=== PATIENT | male | born 1955 | race Caucasian/White ===

== ENCOUNTER 2020-08-03 08:03 | Outpatient (REF) | payer OTHER, SELFPAY ==
[2020-08-03 08:51] LABS: MANUAL DIFF FLAG NO
[2020-08-03 08:57] LABS: Basophils Percent Auto 0.4 % (0-2); Eosinophils Absolute Auto 0.3 X10*3/uL (0.0-0.4); Eosinophils Percent Auto 5.7 % (0-4); Hematocrit 45.8 % (42-52); Hemoglobin 14.6 g/dl (14.0-18.0); Imm Gran Abs Auto 0.01 X10*3/uL (0.00-0.03); Imm Gran Pct Auto 0.2 % (0.0-0.4); Lymphocytes Absolute Auto 1.8 X10*3/uL (1.2-4.9); Lymphocytes Percent Auto 38.6 % (20-40); Mean Corpuscular HGB Conc 31.9 g/dl (31.0-36.0); Mean Corpuscular Hemoglobin 28.2 pg (27.0-33.0); Mean Corpuscular Volume 88.4 fL (80-98); Mean Platelet Volume 9.7 fL (9.4-12.4); Monocytes Absolute Auto 0.3 X10*3/uL (0.1-1.2); Monocytes Percent Auto 6.4 % (2-11); Neutrophils Absolute Auto 2.3 X10*3/uL (2.0-8.3); Neutrophils Percent Auto 48.7 % (45-73); Platelet Count 199 X10*3/uL (160-400); Red Blood Count 5.18 X10*6/uL (4.60-5.80); Red Cell Distribution Width 13.7 % (11.0-16.0); White Blood Count 4.7 X10*3/uL (4.8-10.8)
[2020-08-03 09:27] LABS: Alanine Aminotransferase 17 U/L (0-40); Albumin Level 4.4 g/dL (3.5-5.0); Alkaline Phosphatase 92 U/L (39-117); Anion Gap 15 (12-20); Aspartate Amino Transferase 17 U/L (5-37); Bilirubin Total 0.4 mg/dL (0.0-1.0); Blood Urea Nitrogen 19 mg/dL (9-16); Calcium 9.2 mg/dL (8.4-10.2); Carbon Dioxide 24 mmol/L (22-29); Chloride 105 mmol/L (96-108); Cholesterol 205 mg/dL; Estimated Glomerular Filt Rate > 60; Glucose Fasting 104 mg/dL (60-99); HDL Cholesterol 42 mg/dL; LDL Cholesterol Calculated 134 mg/dl; Potassium 4.6 mmol/l (3.3-5.1); Sodium 139 mmol/L (135-145); Total Protein 7.4 g/dL (6.5-8.0); Triglycerides 149 mg/dL
[2020-08-03 09:50] LABS: Vitamin D 25-OH Total 43.3 ng/mL (>30)
[2020-08-03 10:08] LABS: Estimated Average Glucose 120 mg/dL; Hemoglobin A1c % 5.8 %
[2020-08-03 10:22] LABS: Folate 13.9 ng/mL (> or = 4.0); Vitamin B12 655 pg/mL (200-900)
== END 2020-08-03 08:04 | disposition home or self-care (01) ==
LOC: HO.LAB 08:03
PROVIDERS: Visit Provider Internal Medicine
DX: E78.5 Hyperlipidemia, unspecified (principal); R73.01 Impaired fasting glucose; K21.9 Gastro-esophageal reflux disease without esophagitis; J30.9 Allergic rhinitis, unspecified; E53.8 Deficiency of other specified B group vitamins; E55.9 Vitamin D deficiency, unspecified; E66.3 Overweight
CPT/HCPCS: 36415; 80053; 80061; 82306; 82607; 82746; 83036; 84443; 85025

== ENCOUNTER 2020-11-12 07:48 | Outpatient (REF) | payer OTHER, SELFPAY ==
[2020-11-12 08:18] LABS: MANUAL DIFF FLAG NO
[2020-11-12 08:30] LABS: Basophils Percent Auto 0.5 % (0-2); Eosinophils Absolute Auto 0.2 X10*3/uL (0.0-0.4); Hematocrit 44.3 % (42-52); Imm Gran Abs Auto 0.01 X10*3/uL (0.00-0.03); Imm Gran Pct Auto 0.2 % (0.0-0.4); Lymphocytes Absolute Auto 1.7 X10*3/uL (1.2-4.9); Mean Corpuscular HGB Conc 31.6 g/dl (31.0-36.0); Mean Corpuscular Hemoglobin 28.2 pg (27.0-33.0); Mean Corpuscular Volume 89.1 fL (80-98); Mean Platelet Volume 9.9 fL (9.4-12.4); Monocytes Absolute Auto 0.3 X10*3/uL (0.1-1.2); Monocytes Percent Auto 7.1 % (2-11); Neutrophils Percent Auto 46.2 % (45-73); Platelet Count 182 X10*3/uL (160-400); Red Blood Count 4.97 X10*6/uL (4.60-5.80); Red Cell Distribution Width 13.7 % (11.0-16.0); White Blood Count 4.2 X10*3/uL (4.8-10.8)
[2020-11-12 08:51] LABS: Glucose Urine UA NEG (NEG); Leukocyte Esterase Urine NEG (NEG); Nitrite Urine NEG (NEG); PH 6.5 (5.0-8.0); Urine Blood NEG (NEG); Urine Ketones NEG (NEG); Urine Protein NEG (NEG-TRACE)
[2020-11-12 08:54] LABS: Appearance Urine CLEAR; Color Urine YELLOW
[2020-11-12 09:00] LABS: Alanine Aminotransferase 20 U/L (0-40); Albumin Level 4.4 g/dL (3.5-5.0); Alkaline Phosphatase 99 U/L (39-117); Anion Gap 10 (12-20); Aspartate Amino Transferase 22 U/L (5-37); Bilirubin Total 0.7 mg/dL (0.0-1.0); Blood Urea Nitrogen 21 mg/dL (9-16); Carbon Dioxide 27 mmol/L (22-29); Chloride 106 mmol/L (96-108); Cholesterol 183 mg/dL; Estimated Glomerular Filt Rate > 60; Glucose Fasting 111 mg/dL (60-99); HDL Cholesterol 49 mg/dL; LDL Cholesterol Calculated 118 mg/dl; Potassium 4.3 mmol/L (3.3-5.1); Sodium 139 mmol/L (135-145); Total Protein 7.3 g/dL (6.5-8.0); Triglycerides 82 mg/dL
[2020-11-12 09:24] LABS: TSH reflex Free T4 1.41 uIU/mL (0.32-4.0); Vitamin D 25-OH Total 42.8 ng/mL (>30)
[2020-11-14 05:11] LABS: Vitamin B12 307 pg/mL (200-900)
== END 2020-11-12 07:49 | disposition home or self-care (01) ==
LOC: HO.LAB 07:48
PROVIDERS: PCP Internal Medicine; Visit Provider Internal Medicine
DX: E78.00 Pure hypercholesterolemia, unspecified (principal); E53.8 Deficiency of other specified B group vitamins; K21.9 Gastro-esophageal reflux disease without esophagitis; R73.01 Impaired fasting glucose; E66.3 Overweight; E55.9 Vitamin D deficiency, unspecified
CPT/HCPCS: 36415; 80053; 80061; 81003; 82306; 82607; 82746; 84443; 85025

== ENCOUNTER 2020-11-30 09:26 | Outpatient (REF) | payer OTHER, SELFPAY ==
--- NOTE | ~2020-11-30 | XR_ITS ---
EXAMINATION: XR CERVICAL SPINE CLINICAL INFORMATION: Cervical disc disorder COMPARISON: 08/14/2016 TECHNIQUE: 3 views of the cervical spine were obtained. FINDINGS: There is no fracture or subluxation. Vertebral body height and alignment is maintained. Disc spaces are maintained with prominent multilevel endplate osteophytes seen throughout the cervical spine. Mild facet arthropathy. The atlantoaxial articulation is intact. The dens is intact. The prevertebral soft tissues are unremarkable. The lung apices are clear. XR/XR cervical spine 2V IMPRESSION: Moderate degenerative changes throughout the cervical spine. There is mild progression from prior.
== END 2020-11-30 09:27 | disposition home or self-care (01) ==
LOC: HO.XRAY 09:26
PROVIDERS: PCP Internal Medicine; Visit Provider Internal Medicine
DX: M50.90 Cervical disc disorder, unspecified, unspecified cervical region (principal)
CPT/HCPCS: 72040

== ENCOUNTER 2021-02-11 07:16 | Outpatient (REF) | payer OTHER, SELFPAY ==
[2021-02-11 07:53] LABS: MANUAL DIFF FLAG NO
[2021-02-11 07:58] LABS: Basophils Percent Auto 0.5 % (0-2); Eosinophils Absolute Auto 0.3 X10*3/uL (0.0-0.4); Eosinophils Percent Auto 6.1 % (0-4); Hematocrit 42.9 % (42-52); Hemoglobin 13.6 g/dl (14.0-18.0); Imm Gran Abs Auto 0.01 X10*3/uL (0.00-0.03); Imm Gran Pct Auto 0.2 % (0.0-0.4); Lymphocytes Absolute Auto 1.8 X10*3/uL (1.2-4.9); Mean Corpuscular HGB Conc 31.7 g/dl (31.0-36.0); Mean Corpuscular Hemoglobin 28.5 pg (27.0-33.0); Mean Corpuscular Volume 89.7 fL (80-98); Mean Platelet Volume 9.9 fL (9.4-12.4); Monocytes Absolute Auto 0.3 X10*3/uL (0.1-1.2); Monocytes Percent Auto 6.5 % (2-11); Neutrophils Percent Auto 45.7 % (45-73); Platelet Count 183 X10*3/uL (160-400); Red Blood Count 4.78 X10*6/uL (4.60-5.80); Red Cell Distribution Width 14.5 % (11.0-16.0); White Blood Count 4.4 X10*3/uL (4.8-10.8)
[2021-02-11 07:59] LABS: Glucose Urine UA NEG (NEG); Leukocyte Esterase Urine NEG (NEG); Nitrite Urine NEG (NEG); PH 6.5 (5.0-8.0); Specific Gravity - Urine 1.015 (1.005-1.025); Urine Blood NEG (NEG); Urine Ketones NEG (NEG); Urine Protein NEG (NEG-TRACE)
[2021-02-11 08:00] LABS: Appearance Urine CLEAR; Color Urine YELLOW
[2021-02-11 08:11] LABS: Estimated Average Glucose 108 mg/dL; Hemoglobin A1c % 5.4 %
[2021-02-11 08:23] LABS: Alanine Aminotransferase 15 U/L (0-40); Albumin Level 4.2 g/dL (3.5-5.0); Alkaline Phosphatase 105 U/L (39-117); Anion Gap 11 (12-20); Aspartate Amino Transferase 18 U/L (5-37); Bilirubin Total 0.4 mg/dL (0.0-1.0); Blood Urea Nitrogen 23 mg/dL (9-16); Calcium 8.9 mg/dL (8.4-10.2); Carbon Dioxide 24 mmol/L (22-29); Chloride 110 mmol/L (96-108); Cholesterol 165 mg/dL; Estimated Glomerular Filt Rate > 60; Glucose Fasting 111 mg/dL (60-99); HDL Cholesterol 54 mg/dL; LDL Cholesterol Calculated 100 mg/dl; Potassium 4.4 mmol/L (3.3-5.1); Sodium 141 mmol/L (135-145); Total Protein 6.9 g/dL (6.5-8.0); Triglycerides 58 mg/dL
[2021-02-11 08:47] LABS: Prostate Specific Antigen Scr 0.42 ng/mL (<0.05-4.0); TSH reflex Free T4 1.22 uIU/mL (0.32-4.0); Vitamin D 25-OH Total 43.7 ng/mL (>30)
[2021-02-13 08:37] LABS: Folate 14.3 ng/mL (> or = 4.0); Vitamin B12 642 pg/mL (200-900)
== END 2021-02-11 07:17 | disposition home or self-care (01) ==
LOC: HO.LAB 07:16
PROVIDERS: PCP Internal Medicine; Visit Provider Internal Medicine
DX: Z12.5 Encounter for screening for malignant neoplasm of prostate (principal); E53.8 Deficiency of other specified B group vitamins; E78.00 Pure hypercholesterolemia, unspecified; R35.0 Frequency of micturition; K21.9 Gastro-esophageal reflux disease without esophagitis; R73.01 Impaired fasting glucose; E55.9 Vitamin D deficiency, unspecified; E66.3 Overweight
CPT/HCPCS: 36415; 80053; 80061; 81003; 82306; 82607; 82746; 83036; 84153; 84443; 85025

== ENCOUNTER 2021-06-29 06:00 | Outpatient (REF) | payer OTHER, SELFPAY ==
[2021-06-29 06:07] LABS: MANUAL DIFF FLAG NO
[2021-06-29 06:15] LABS: Basophils Percent Auto 0.3 % (0-2); Eosinophils Absolute Auto 0.2 X10*3/uL (0.0-0.4); Eosinophils Percent Auto 5.5 % (0-4); Hematocrit 44.9 % (42.0-52.0); Hemoglobin 13.9 g/dl (14.0-18.0); Imm Gran Abs Auto 0.01 X10*3/uL (0.00-0.03); Imm Gran Pct Auto 0.3 % (0.0-0.4); Lymphocytes Absolute Auto 1.8 X10*3/uL (1.2-4.9); Mean Corpuscular Hemoglobin 28.4 pg (27.0-33.0); Mean Corpuscular Volume 91.6 fL (80.0-98.0); Monocytes Absolute Auto 0.3 X10*3/uL (0.1-1.2); Monocytes Percent Auto 8.5 % (2-11); Neutrophils Absolute Auto 1.66 x10*3/uL (2.0-8.3); Neutrophils Percent Auto 41.4 % (45-73); Platelet Count 166 X10*3/uL (160-400); Red Cell Distribution Width 13.7 % (11.0-16.0)
[2021-06-29 06:33] LABS: Alanine Aminotransferase 16 U/L (0-40); Albumin Level 4.3 g/dL (3.5-5.0); Alkaline Phosphatase 91 U/L (39-117); Anion Gap 11 (12-20); Aspartate Amino Transferase 22 U/L (5-37); Bilirubin Total 0.4 mg/dL (0.0-1.0); Blood Urea Nitrogen 16 mg/dL (9-16); Calcium 9.2 mg/dL (8.4-10.2); Carbon Dioxide 26 mmol/L (22-29); Chloride 109 mmol/L (96-108); Cholesterol 184 mg/dL; Estimated Glomerular Filt Rate > 60; Glucose Fasting 122 mg/dL (60-99); HDL Cholesterol 49 mg/dL; LDL Cholesterol Calculated 120 mg/dl; Potassium 5.4 mmol/L (3.3-5.1); Sodium 141 mmol/L (135-145); Total Protein 7.3 g/dL (6.5-8.0); Triglycerides 77 mg/dL
[2021-06-29 06:51] LABS: TSH reflex Free T4 1.98 uIU/mL (0.32-4.0)
== END 2021-06-29 06:01 | disposition home or self-care (01) ==
LOC: HO.LAB 06:00
PROVIDERS: PCP Internal Medicine; Visit Provider Internal Medicine
DX: Z00.00 Encounter for general adult medical examination without abnormal findings (principal); E78.00 Pure hypercholesterolemia, unspecified; R73.01 Impaired fasting glucose; K21.9 Gastro-esophageal reflux disease without esophagitis; E53.8 Deficiency of other specified B group vitamins
CPT/HCPCS: 36415; 80053; 80061; 84443; 85025

== ENCOUNTER 2021-10-28 07:02 | Outpatient (REF) | payer MEDICARE, SELFPAY ==
[2021-10-28 07:16] LABS: MANUAL DIFF FLAG NO
[2021-10-28 07:57] LABS: Basophils Percent Auto 0.2 % (0-2); Eosinophils Absolute Auto 0.2 X10*3/uL (0.0-0.4); Eosinophils Percent Auto 4.6 % (0-4); Hematocrit 45.9 % (42.0-52.0); Hemoglobin 14.4 g/dl (14.0-18.0); Imm Gran Abs Auto 0.01 X10*3/uL (0.00-0.03); Imm Gran Pct Auto 0.2 % (0.0-0.4); Lymphocytes Percent Auto 45.2 % (20-40); Mean Corpuscular HGB Conc 31.4 g/dl (31.0-36.0); Mean Corpuscular Hemoglobin 28.7 pg (27.0-33.0); Mean Corpuscular Volume 91.4 fL (80.0-98.0); Mean Platelet Volume 9.8 fL (9.4-12.4); Monocytes Absolute Auto 0.3 X10*3/uL (0.1-1.2); Monocytes Percent Auto 7.4 % (2-11); Neutrophils Absolute Auto 1.8 x10*3/uL (2.0-8.3); Neutrophils Percent Auto 42.4 % (45-73); Platelet Count 181 X10*3/uL (160-400); Red Blood Count 5.02 X10*6/uL (4.60-5.80); Red Cell Distribution Width 13.5 % (11.0-16.0); White Blood Count 4.3 X10*3/uL (4.8-10.8)
[2021-10-28 08:09] LABS: Estimated Average Glucose 114 mg/dL; Hemoglobin A1c % 5.6 %
[2021-10-28 08:18] LABS: Appearance Urine HAZY; Color Urine YELLOW; Glucose Urine UA NEG (NEG); Leukocyte Esterase Urine NEG (NEG); Nitrite Urine NEG (NEG); Specific Gravity - Urine 1.015 (1.005-1.025); Urine Blood NEG (NEG); Urine Ketones NEG (NEG); Urine Protein NEG (NEG-TRACE)
[2021-10-28 08:28] LABS: Alanine Aminotransferase 16 U/L (0-40); Albumin Level 4.3 g/dL (3.5-5.0); Alkaline Phosphatase 86 U/L (39-117); Anion Gap 12 (12-20); Aspartate Amino Transferase 20 U/L (5-37); Bilirubin Total 0.8 mg/dL (0.0-1.0); Blood Urea Nitrogen 20 mg/dL (9-16); Calcium 9.3 mg/dL (8.4-10.2); Carbon Dioxide 25 mmol/L (22-29); Chloride 107 mmol/L (96-108); Cholesterol 196 mg/dL; Estimated Glomerular Filt Rate > 60; Glucose Fasting 111 mg/dL (60-99); HDL Cholesterol 51 mg/dL; LDL Cholesterol Calculated 131 mg/dl; Potassium 4.4 mmol/L (3.3-5.1); Sodium 140 mmol/L (135-145); Total Protein 7.1 g/dL (6.5-8.0); Triglycerides 73 mg/dL
[2021-10-28 08:33] LABS: TSH reflex Free T4 1.81 uIU/mL (0.32-4.0); Vitamin D 25-OH Total 36.6 ng/mL (>30)
== END 2021-10-28 07:03 | disposition home or self-care (01) ==
LOC: HO.LAB 07:02
PROVIDERS: PCP Internal Medicine; Visit Provider Internal Medicine
DX: E78.00 Pure hypercholesterolemia, unspecified (principal); I10 Essential (primary) hypertension; E55.9 Vitamin D deficiency, unspecified; R73.01 Impaired fasting glucose
CPT/HCPCS: 36415; 80053; 80061; 81003; 82306; 83036; 84443; 85025

== ENCOUNTER 2022-02-27 07:49 | Outpatient (REF) | payer MEDICARE, SELFPAY ==
[2022-02-27 08:04] LABS: MANUAL DIFF FLAG NO
[2022-02-27 08:27] LABS: Basophils Percent Auto 0.2 % (0-2); Eosinophils Absolute Auto 0.3 X10*3/uL (0.0-0.4); Eosinophils Percent Auto 6.4 % (0-4); Hemoglobin 13.8 g/dl (14.0-18.0); Imm Gran Abs Auto 0.01 X10*3/uL (0.00-0.03); Imm Gran Pct Auto 0.2 % (0.0-0.4); Lymphocytes Percent Auto 44.5 % (20-40); Mean Corpuscular HGB Conc 32.1 g/dl (31.0-36.0); Mean Corpuscular Hemoglobin 29.1 pg (27.0-33.0); Mean Corpuscular Volume 90.5 fL (80.0-98.0); Mean Platelet Volume 9.8 fL (9.4-12.4); Monocytes Absolute Auto 0.3 X10*3/uL (0.1-1.2); Monocytes Percent Auto 6.6 % (2-11); Neutrophils Absolute Auto 1.8 x10*3/uL (2.0-8.3); Neutrophils Percent Auto 42.1 % (45-73); Platelet Count 172 X10*3/uL (160-400); Red Blood Count 4.75 X10*6/uL (4.60-5.80); Red Cell Distribution Width 14.2 % (11.0-16.0); White Blood Count 4.4 X10*3/uL (4.8-10.8)
[2022-02-27 08:28] LABS: Appearance Urine CLEAR; Color Urine YELLOW; Glucose Urine UA NEG (NEG); Leukocyte Esterase Urine NEG (NEG); Nitrite Urine NEG (NEG); UACC Culture Trigger NO; Urine Blood 2+ (NEG); Urine Ketones NEG (NEG); Urine Protein NEG (NEG-TRACE)
[2022-02-27 08:41] LABS: Mucus Urine 1+ /LPF; WBC Urine 0 /HPF (0-4)
[2022-02-27 08:42] LABS: Estimated Average Glucose 111 mg/dL; Hemoglobin A1c % 5.5 %
[2022-02-27 09:33] LABS: Alanine Aminotransferase 14 U/L (0-40); Albumin Level 4.3 g/dL (3.5-5.0); Alkaline Phosphatase 91 U/L (39-117); Anion Gap 11 (12-20); Aspartate Amino Transferase 19 U/L (5-37); Bilirubin Total 0.7 mg/dL (0.0-1.0); Blood Urea Nitrogen 17 mg/dL (9-16); Carbon Dioxide 26 mmol/L (22-29); Chloride 109 mmol/L (96-108); Cholesterol 192 mg/dL; Estimated Glomerular Filt Rate > 60; Glucose Fasting 116 mg/dL (60-99); HDL Cholesterol 52 mg/dL; LDL Cholesterol Calculated 117 mg/dl; Potassium 4.6 mmol/L (3.3-5.1); Sodium 141 mmol/L (135-145); Total Protein 7.1 g/dL (6.5-8.0); Triglycerides 118 mg/dL
[2022-02-27 09:55] LABS: TSH reflex Free T4 1.95 uIU/mL (0.32-4.0); Vitamin D 25-OH Total 40.7 ng/mL (>30)
== END 2022-02-27 07:50 | disposition home or self-care (01) ==
LOC: HO.LAB 07:49
PROVIDERS: PCP Internal Medicine; Visit Provider Internal Medicine
DX: I10 Essential (primary) hypertension (principal); E55.9 Vitamin D deficiency, unspecified; E78.00 Pure hypercholesterolemia, unspecified; R73.01 Impaired fasting glucose
CPT/HCPCS: 36415; 80053; 80061; 81001; 82306; 83036; 84443; 85025

== ENCOUNTER 2022-07-02 07:07 | Outpatient (REF) | payer MEDICARE, SELFPAY ==
[2022-07-02 07:16] LABS: MANUAL DIFF FLAG NO
[2022-07-02 07:36] LABS: Basophils Percent Auto 0.3 % (0-2); Eosinophils Absolute Auto 0.5 X10*3/uL (0.0-0.4); Eosinophils Percent Auto 7.8 % (0-4); Hematocrit 41.3 % (42.0-52.0); Hemoglobin 13.2 g/dl (14.0-18.0); Imm Gran Abs Auto 0.02 X10*3/uL (0.00-0.03); Imm Gran Pct Auto 0.3 % (0.0-0.4); Lymphocytes Percent Auto 34.1 % (20-40); Mean Corpuscular Hemoglobin 28.7 pg (27.0-33.0); Mean Corpuscular Volume 89.8 fL (80.0-98.0); Mean Platelet Volume 9.2 fL (9.4-12.4); Monocytes Absolute Auto 0.4 X10*3/uL (0.1-1.2); Monocytes Percent Auto 6.8 % (2-11); Neutrophils Percent Auto 50.7 % (45-73); Platelet Count 164 X10*3/uL (160-400); White Blood Count 5.9 X10*3/uL (4.8-10.8)
[2022-07-02 07:41] LABS: Estimated Average Glucose 108 mg/dL; Hemoglobin A1c % 5.4 %
[2022-07-02 07:56] LABS: Alanine Aminotransferase 19 U/L (0-40); Albumin Level 4.1 g/dL (3.5-5.0); Alkaline Phosphatase 76 U/L (39-117); Anion Gap 16 (12-20); Aspartate Amino Transferase 28 U/L (5-37); Bilirubin Total 0.5 mg/dL (0.0-1.0); Blood Urea Nitrogen 24 mg/dL (9-16); Calcium 8.8 mg/dL (8.4-10.2); Carbon Dioxide 22 mmol/L (22-29); Chloride 108 mmol/L (96-108); Cholesterol 163 mg/dL; Estimated Glomerular Filt Rate > 60; Glucose Fasting 115 mg/dL (60-99); HDL Cholesterol 49 mg/dL; LDL Cholesterol Calculated 99 mg/dl; Potassium 4.7 mmol/L (3.3-5.1); Sodium 141 mmol/L (135-145); Total Protein 6.8 g/dL (6.5-8.0); Triglycerides 76 mg/dL
[2022-07-02 08:11] LABS: Appearance Urine Clear; Color Urine Yellow; Glucose Urine UA Negative (Negative); Leukocyte Esterase Urine Negative (Negative); Nitrite Urine Negative (Negative); Specific Gravity - Urine 1.025 (1.005-1.025); Urine Blood Negative (Negative); Urine Ketones Negative (Negative); Urine Protein Negative (Neg-Trace)
[2022-07-02 08:17] LABS: TSH reflex Free T4 1.04 uIU/mL (0.32-4.0)
== END 2022-07-02 07:08 | disposition home or self-care (01) ==
LOC: HO.LAB 07:07
PROVIDERS: PCP Internal Medicine; Visit Provider Internal Medicine
DX: E78.00 Pure hypercholesterolemia, unspecified (principal); R73.01 Impaired fasting glucose; I10 Essential (primary) hypertension
CPT/HCPCS: 36415; 80053; 80061; 81003; 83036; 84443; 85025

== ENCOUNTER 2022-11-05 07:22 | Outpatient (REF) | payer MEDICARE, SELFPAY ==
[2022-11-05 07:34] LABS: MANUAL DIFF FLAG NO
[2022-11-05 08:14] LABS: Appearance Urine Clear; Color Urine Yellow; Glucose Urine UA Negative (Negative); Leukocyte Esterase Urine Negative (Negative); Nitrite Urine Negative (Negative); Urine Blood Negative (Negative); Urine Ketones Negative (Negative); Urine Protein Negative (Neg-Trace)
[2022-11-05 08:22] LABS: Estimated Average Glucose 111 mg/dL; Hemoglobin A1c % 5.5 %
[2022-11-05 08:24] LABS: Basophils Percent Auto 0.3 % (0-2); Eosinophils Absolute Auto 0.3 X10*3/uL (0.0-0.4); Eosinophils Percent Auto 5.4 % (0-4); Hematocrit 44.2 % (42.0-52.0); Hemoglobin 13.9 g/dl (14.0-18.0); Imm Gran Abs Auto 0.01 X10*3/uL (0.00-0.03); Imm Gran Pct Auto 0.2 % (0.0-0.4); Lymphocytes Absolute Auto 2.3 X10*3/uL (1.2-4.9); Lymphocytes Percent Auto 39.2 % (20-40); Mean Corpuscular HGB Conc 31.4 g/dl (31.0-36.0); Mean Corpuscular Volume 88.9 fL (80.0-98.0); Mean Platelet Volume 9.5 fL (9.4-12.4); Monocytes Absolute Auto 0.4 X10*3/uL (0.1-1.2); Monocytes Percent Auto 6.6 % (2-11); Neutrophils Absolute Auto 2.9 x10*3/uL (2.0-8.3); Neutrophils Percent Auto 48.3 % (45-73); Platelet Count 183 X10*3/uL (160-400); Red Blood Count 4.97 X10*6/uL (4.60-5.80); Red Cell Distribution Width 13.7 % (11.0-16.0)
[2022-11-05 08:52] LABS: Alanine Aminotransferase 14 U/L (0-40); Albumin Level 4.2 g/dL (3.5-5.0); Alkaline Phosphatase 78 U/L (39-117); Anion Gap 14 (12-20); Aspartate Amino Transferase 18 U/L (5-37); Blood Urea Nitrogen 21 mg/dL (9-16); Calcium 9.1 mg/dL (8.4-10.2); Carbon Dioxide 23 mmol/L (22-29); Chloride 107 mmol/L (96-108); Cholesterol 175 mg/dL; Estimated Glomerular Filt Rate > 60; Glucose Fasting 109 mg/dL (60-99); HDL Cholesterol 52 mg/dL; LDL Cholesterol Calculated 105 mg/dl; Potassium 4.3 mmol/L (3.3-5.1); Sodium 140 mmol/L (135-145); Total Protein 6.9 g/dL (6.5-8.0); Triglycerides 93 mg/dL
[2022-11-05 09:25] LABS: Folate 15.2 ng/mL (> or = 4.0); Prostate Specific Antigen Scr 0.51 ng/mL (<0.05-4.0); TSH reflex Free T4 2.08 uIU/mL (0.32-4.0); Vitamin B12 327 pg/mL (200-900); Vitamin D 25-OH Total 35.1 ng/mL (>30)
== END 2022-11-05 07:23 | disposition home or self-care (01) ==
LOC: HO.LAB 07:22
PROVIDERS: PCP Internal Medicine; Visit Provider Internal Medicine
DX: Z00.00 Encounter for general adult medical examination without abnormal findings (principal); Z12.5 Encounter for screening for malignant neoplasm of prostate; E78.00 Pure hypercholesterolemia, unspecified; R30.0 Dysuria; E55.9 Vitamin D deficiency, unspecified; E53.8 Deficiency of other specified B group vitamins; R73.01 Impaired fasting glucose; I10 Essential (primary) hypertension
CPT/HCPCS: 36415; 80053; 80061; 81003; 82306; 82607; 82746; 83036; 84153; 84443; 85025

== ENCOUNTER 2022-12-17 10:22 | Outpatient (REF) | payer MEDICARE, SELFPAY ==
[2022-12-18 09:08] LABS: Lyme Abs Screen <0.90 index
== END 2022-12-17 10:23 | disposition home or self-care (01) ==
LOC: HO.HMGCLDS 10:22
PROVIDERS: PCP Internal Medicine; Visit Provider Physician Assistant
DX: T14.8XXA Other injury of unspecified body region, initial encounter (principal); W57.XXXA Bitten or stung by nonvenomous insect and other nonvenomous arthropods, initial encounter; Y93.9 Activity, unspecified; Y92.9 Unspecified place or not applicable; Y99.9 Unspecified external cause status
CPT/HCPCS: 36415; 86617; 86618

== ENCOUNTER 2023-03-12 07:57 | Outpatient (REF) | payer MEDICARE, SELFPAY ==
[2023-03-12 11:32] LABS: MANUAL DIFF FLAG NO
[2023-03-12 11:51] LABS: Basophils Percent Auto 0.2 % (0-2); Eosinophils Absolute Auto 0.3 X10*3/uL (0.0-0.4); Hematocrit 44.2 % (42.0-52.0); Hemoglobin 13.8 g/dl (14.0-18.0); Imm Gran Abs Auto 0.02 X10*3/uL (0.00-0.03); Imm Gran Pct Auto 0.4 % (0.0-0.4); Lymphocytes Percent Auto 44.2 % (20-40); Mean Corpuscular HGB Conc 31.2 g/dl (31.0-36.0); Mean Corpuscular Hemoglobin 28.3 pg (27.0-33.0); Mean Corpuscular Volume 90.6 fL (80.0-98.0); Monocytes Absolute Auto 0.4 X10*3/uL (0.1-1.2); Monocytes Percent Auto 7.7 % (2-11); Neutrophils Absolute Auto 1.9 x10*3/uL (2.0-8.3); Neutrophils Percent Auto 41.5 % (45-73); Platelet Count 193 X10*3/uL (160-400); Red Blood Count 4.88 X10*6/uL (4.60-5.80); Red Cell Distribution Width 14.2 % (11.0-16.0); White Blood Count 4.5 X10*3/uL (4.8-10.8)
[2023-03-12 12:11] LABS: Estimated Average Glucose 111 mg/dL; Hemoglobin A1c % 5.5 %
[2023-03-12 12:33] LABS: Alanine Aminotransferase 23 U/L (0-40); Albumin Level 4.2 g/dL (3.5-5.0); Alkaline Phosphatase 83 U/L (39-117); Anion Gap 10 (12-20); Aspartate Amino Transferase 29 U/L (5-37); Bilirubin Total 0.6 mg/dL (0.0-1.0); Blood Urea Nitrogen 15 mg/dL (9-16); Calcium 9.4 mg/dL (8.4-10.2); Carbon Dioxide 27 mmol/L (22-29); Chloride 107 mmol/L (96-108); Cholesterol 183 mg/dL; Estimated Glomerular Filt Rate > 60; Glucose Fasting 111 mg/dL (60-99); HDL Cholesterol 55 mg/dL; LDL Cholesterol Calculated 109 mg/dl; Potassium 4.5 mmol/L (3.3-5.1); Sodium 139 mmol/L (135-145); Total Protein 7.4 g/dL (6.5-8.0); Triglycerides 99 mg/dL; Vitamin D 25-OH Total 88.1 ng/mL (>30)
[2023-03-12 12:52] LABS: Folate 13.8 ng/mL (> or = 4.0); Vitamin B12 521 pg/mL (200-900)
== END 2023-03-12 07:58 | disposition home or self-care (01) ==
LOC: HO.HMGCLDS 07:57
PROVIDERS: PCP Internal Medicine; Visit Provider Internal Medicine
DX: I10 Essential (primary) hypertension (principal); E78.00 Pure hypercholesterolemia, unspecified; E53.8 Deficiency of other specified B group vitamins; E55.9 Vitamin D deficiency, unspecified; R73.01 Impaired fasting glucose
CPT/HCPCS: 36415; 80053; 80061; 82306; 82607; 82746; 83036; 85025

== ENCOUNTER 2023-03-26 09:18 | Outpatient (AMB) | payer MEDICARE, SELFPAY ==
[2023-03-26 09:23] VITALS: BP 136/82; PULSE 75; O2SAT 99; BMI 24.4
--- NOTE | 2023-03-26 09:23 | A.OFFPC_ITS ---
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 Accompanied by: Self / Same As Patient Allergies No Known Allergies [No Known Allergies*] Allergy (Verified 03/26/23 09:45) Medication List - Last Reconciled 03/26/23 by Chris Wilkerson MD cholecalciferol (vitamin D3) 25 mcg PO DAILY fluticasone propionate 50 mcg/actuation 2 sprays intranasal DAILY PRN 30 days meclizine 25 mg PO BID PRN mecobalamin (vitamin B12) 1,000 mcg PO DAILY miscellaneous medical supply (Blood Pressure Cuff) As directed pantoprazole 40 mg PO DAILY PRN 90 days Tobacco use date assessed: 03/26/23 Fall risk assessment: No Falls in past year Last assessed Fall Risk: 03/26/23 Dental Screening Dental Screen Date: 03/26/23 Did you have a dental visit in the last 12 months?: Yes Did you have a dental problem in the last 6 months where you did not have access to dental care?: No Was dental information given to patient?: Patient has dentist HPI hyperlipidemia, IFG, cervical disc disease HPI Details Patient comes in today for his follow up visit States that he feels okay He denies any headaches or dizziness Denies any chest pains, no SOB No nausea/vomiting, no abdominal pain No change in bowel habits noted Had his follow up labs done a couple of weeks ago - to discuss his results [facility] Medical History Cervical disc disease GERD without esophagitis Impaired fasting glucose Insomnia Pure hypercholesterolemia Vitamin B12 deficiency Vitamin D deficiency Surgical History History of arthroscopic surgery of elbow History of colonoscopy (~10/09/13) History of hemorrhoidectomy History of surgery Family History Father Suicide Mother Heart disease CVD (cardiovascular disease) Diabetes Emphysema lung Other Mental health problem Social History Housing: House Alcohol intake: current Alcohol intake frequency: holidays/special occasions only Patient Tobacco Use Status: Never used Tobacco e-Cigarette/Vaping Use: Never Used Second Hand Smoke Exposure: Yes service: No Current occupational status: employed and retired 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 1. Little interest or pleasure in doing things: not at all 2. Feeling down, depressed, or hopeless: not at all 3. Trouble falling or staying asleep, or sleeping too much: not at all 4. Feeling tired or having little energy: not at all 5. Poor appetite or overeating: not at all 6. Feeling bad about yourself - or that you are a failure or have let yourself or your family down: not at all 7. Trouble concentrating on things, such as reading the newspaper or watching television: not at all 8. Moving or speaking so slowly that other people could have noticed. Or the op posite - being so fidgety or restless that you have been moving around a lot more than usual: not at all 9. Thoughts that you would be better off or of hurting yourself in some way: not at all Total score: 0 Depression Screening Interpretation: Negative 40083 - PHQ-9 Billing: Yes Source: Developed by Drs. Everette Alejandre, Donna Lucas, Markell Waldron and colleagues, with an educational thanh from [employer]. Thrive Questionnaire Date Thrive assessed: 03/26/23 I am a: Patient What is your living situation today?: I have a steady place to live Within the past 12 months, did the food you bought not last and you didn't have the money to get more?: Never true Within the past 12 months, did you worry whether your food would run out before you got money to buy more?: Never true Do you have trouble paying for medicines?: No Do you have trouble getting transportation to medical appointments?: No Do you have trouble paying your heating and electricity bill?: No Do you have trouble taking care of your child, family member or friend?: No Do you have trouble with day-to-day activities such as bathing, preparing meals, shopping, managing finances, etc.?: No Are you currently unemployed and looking for a job?: No Are you interested in more education?: No Please select the resources that you would like help with: None Currently or been in a relationship where the following occur: no concerns reported AUDIT C Alcohol Use Questionnaire (AUDIT-C) 1. How often do you have a drink containing alcohol?: Never 3. How often do you have six or more drinks on one occasion?: Never Total Score: 0 Score Reviewed/Action Taken: Yes ELIA-7 AMB Questionnaire ELIA-7 Date ELIA - 7 assessed: 03/26/23 Feeling nervous, anxious, or on edge: 1 = Several days Not being able to stop or control worryin = Several days Worrying too much about different things: 1 = Several days Trouble relaxin = Several days Being so restless that it is hard to sit still: 1 = Several days Becoming easily annoyed or irritable: 1 = Several days Feeling afraid as if something awful might happen: 1 = Several days Total ELIA-7 score (0-4 normal; 5-9 mild; 10-14 moderate; 15-21 severe): 7 Source: Developed by Drs. Everette Alejandre, Donna Lucas, Markell Waldron and colleagues, with an educational thanh from [employer]. Review of Systems Const Denies fatigue, Denies fever(s) and Denies headache(s) ENT Denies dysphagia, Denies dizziness, Denies otalgia, Denies headache(s), Reports neck pain (chronic) and Denies sore throat Card Denies chest pain and Denies dyspnea Resp Denies cough and Denies dyspnea GI Denies abdominal pain, Denies constipation, Denies dysphagia, Denies heartburn, Denies diarrhea, Denies nausea and Denies vomiting Denies dysuria, Denies nocturia and Denies urinary frequency Musc Reports neck pain (chronic) Neuro Denies dizziness and Denies headache(s) Endo Denies fatigue Physical exam (Primary Care) Vital Signs: Last Vital Signs Pulse 75 03/26/23 09:23 BP 136/82 03/26/23 09:23 Pulse Ox 99 03/26/23 09:23 Oxygen Delivery Method Room Air 03/26/23 09:23 BMI result Body Mass Index 24.4 Tobacco/Smoking Status: Tobacco use Status Tobacco use date assessed 03/26/23 03/26/23 09:27 Patient Tobacco Use Status Never used Tobacco 03/26/23 09:27 e-Cigarette/Vaping Use Never Used 03/26/23 09:27 PHQ-9: PHQ-9 Score PHQ-9: Total score 0 03/26/23 09:27 Depression Screening Interpretation: Negative Thrive Assessment: Date of Thrive Assessment Date Thrive assessed 03/26/23 03/26/23 09:27 Currently or been in a relationship where the following occur: no concerns reported Const General: no acute distress and alert HENMT Ears: TM's normal bilaterally and EAC's normal Throat: Yes posterior oropharynx normal and Yes tonsils normal Neck Neck: Yes no lymphadenopathy and Yes supple Thyroid: no masses Lymphatic: no lymphadenopathy noted Resp Auscultation: clear to auscultation bilaterally, no rales and no wheezes Cardio Rate: regular rate Rhythm: regular rhythm Heart sounds: no murmurs GI Palpation (GI): Soft to palpation and nontender Auscultation: normal bowel sounds Extrem General: Yes no clubbing, cyanosis or edema Results Reviewed Results Reviewed: Laboratory Tests 03/12/23 03/12/23 03/12/23 08:02 08:02 08:02 WBC 4.5 L Hgb 13.8 L Hct 44.2 Plt Count 193 Sodium 139 Potassium 4.5 Creatinine 1.00 Estimated GFR > 60 Fasting Glucose 111 H Hemoglobin A1c % 5.5 Calcium 9.4 AST 29 ALT 23 Triglycerides 99 Cholesterol 183 LDL Cholesterol, Calc 109 HDL Cholesterol 55 Vitamin B12 25-OH Vitamin D Total 88.1 03/12/23 08:02 WBC Hgb Hct Plt Count Sodium Potassium Creatinine Estimated GFR Fasting Glucose Hemoglobin A1c % Calcium AST ALT Triglycerides Cholesterol LDL Cholesterol, Calc HDL Cholesterol Vitamin B12 521 25-OH Vitamin D Total Assessment and Plan Assessment & Plan (1) Pure hypercholesterolemia: Code(s): E78.00 - Pure hypercholesterolemia, unspecified Plan: Results of his labs done a couple of weeks ago reviewed and discussed with patient Reinforced low cholesterol diet; Patient still prefers not to take any Rx and will keep working on his diet and lifestyle changes - advised that his cholesterol numbers have been within acceptable range for a while now Will recheck his labs again in 4 months for follow up (2) Impaired fasting glucose: Code(s): R73.01 - Impaired fasting glucose Plan: HgbA1c remains normal at 5.5% on his labs done a couple of weeks ago Reinforced low calorie diet/exercise as tolerated (3) GERD without esophagitis: Code(s): K21.9 - Gastro-esophageal reflux disease without esophagitis Plan: DIetary restrictions reinforced Continue Pantoprazole 40 mg QD (4) Vitamin D deficiency: Code(s): E55.9 - Vitamin D deficiency, unspecified Plan: Corrected - continue Vitamin D3 1000 units QD (5) Vitamin B12 deficiency: Code(s): E53.8 - Deficiency of other specified B group vitamins Plan: Corrected - continue Vitamin B12 1000 mcg QD (6) Cervical disc disease: Code(s): M50.90 - Cervical disc disorder, unspecified, unspecified cervical region Plan: Cervical spine x-rays done a couple of years ago (2020) revealed (+) moderate degenerative changes throughout the cervical spine, with mild progression of changes from previous Advised to continue with the neck exercises that he was previously taught by PT; can call for referral again at any time if his neck pain gets worse (7) Insomnia: Code(s): G47.00 - Insomnia, unspecified Qualifiers: Insomnia type: unspecified Qualified Code(s): G47.00 - Insomnia, unspecified Plan: Sleep hygiene reinforced Was started on a trial of Trazodone 50 mg Q HS PRN previously but patient states that he has been sleeping well lately and has not had to take Rx for a while now Plan Follow up in 4 months Orders: Orders Vitamin B12 and Folate 4 Months E53.8 - Deficiency of other specified B group vitamins Comprehensive [place]. Panel Fast 4 Months E78.00 - Pure hypercholesterolemia, unspecified Hemoglobin A1c 4 Months R73.01 - Impaired fasting glucose Lipid Panel 4 Months E78.00 - Pure hypercholesterolemia, unspecified TSH reflex Free T4 4 Months E78.00 - Pure hypercholesterolemia, unspecified Vitamin D 25-OH Total 4 Months E55.9 - Vitamin D deficiency, unspecified Complete Blood Count Auto Diff 4 Months I10 - Essential (primary) hypertension Coding Level of Care Code Est Pt Level 4 (27196) Diagnoses Pure hypercholesterolemia E78.00 Impaired fasting glucose R73.01 GERD without esophagitis K21.9 Vitamin D deficiency E55.9 Vitamin B12 deficiency E53.8 Cervical disc disease M50.90 Insomnia G47.00 Insomnia type: unspecified
== END 2023-03-26 10:06 | disposition home or self-care (01) ==
PROVIDERS: PCP Internal Medicine; Visit Provider Internal Medicine
DX: E78.00 Pure hypercholesterolemia, unspecified (principal); R73.01 Impaired fasting glucose; K21.9 Gastro-esophageal reflux disease without esophagitis; E55.9 Vitamin D deficiency, unspecified; E53.8 Deficiency of other specified B group vitamins; M50.90 Cervical disc disorder, unspecified, unspecified cervical region; G47.00 Insomnia, unspecified
CPT/HCPCS: 99214

== ENCOUNTER 2023-06-24 09:48 | Outpatient (REF) | payer MEDICARE, SELFPAY ==
[2023-06-24 10:00] LABS: MANUAL DIFF FLAG NO
[2023-06-24 10:28] LABS: Basophils Percent Auto 0.2 % (0-2); Eosinophils Absolute Auto 0.2 X10*3/uL (0.0-0.4); Eosinophils Percent Auto 3.3 % (0-4); Hematocrit 44.8 % (42.0-52.0); Hemoglobin 14.3 g/dl (14.0-18.0); Imm Gran Abs Auto 0.01 X10*3/uL (0.00-0.03); Imm Gran Pct Auto 0.2 % (0.0-0.4); Lymphocytes Absolute Auto 1.8 X10*3/uL (1.2-4.9); Mean Corpuscular HGB Conc 31.9 g/dl (31.0-36.0); Mean Corpuscular Hemoglobin 28.3 pg (27.0-33.0); Mean Corpuscular Volume 88.7 fL (80.0-98.0); Mean Platelet Volume 9.4 fL (9.4-12.4); Monocytes Absolute Auto 0.4 X10*3/uL (0.1-1.2); Monocytes Percent Auto 7.2 % (2-11); Neutrophils Absolute Auto 3.3 x10*3/uL (2.0-8.3); Neutrophils Percent Auto 57.1 % (45-73); Platelet Count 170 X10*3/uL (160-400); Red Blood Count 5.05 X10*6/uL (4.60-5.80); Red Cell Distribution Width 13.3 % (11.0-16.0); White Blood Count 5.7 X10*3/uL (4.8-10.8)
[2023-06-24 10:44] LABS: Estimated Average Glucose 105 mg/dL; Hemoglobin A1c % 5.3 % (<6.0)
[2023-06-24 11:26] LABS: Alanine Aminotransferase 13 U/L (0-40); Albumin Level 4.4 g/dL (3.5-5.0); Alkaline Phosphatase 89 U/L (39-117); Anion Gap 13 (12-20); Aspartate Amino Transferase 18 U/L (5-37); Bilirubin Total 0.6 mg/dL (0.0-1.0); Blood Urea Nitrogen 17 mg/dL (9-16); Calcium 9.5 mg/dL (8.4-10.2); Carbon Dioxide 25 mmol/L (22-29); Chloride 106 mmol/L (96-108); Cholesterol 177 mg/dL (<200); Estimated Glomerular Filt Rate > 60; Glucose Fasting 117 mg/dL (60-99); HDL Cholesterol 49 mg/dL (>40); LDL Cholesterol Calculated 106 mg/dL (<100); Potassium 4.1 mmol/L (3.3-5.1); Sodium 140 mmol/L (135-145); Total Protein 7.8 g/dL (6.5-8.0); Triglycerides 112 mg/dL (<150)
[2023-06-24 11:51] LABS: Folate 12.9 ng/mL (> or = 4.0); TSH reflex Free T4 2.08 uIU/mL (0.32-4.0); Vitamin B12 719 pg/mL (200-900); Vitamin D 25-OH Total 52.7 ng/mL (>30)
== END 2023-06-24 09:49 | disposition home or self-care (01) ==
LOC: HO.LAB 09:48
PROVIDERS: PCP Internal Medicine; Visit Provider Internal Medicine
DX: E78.00 Pure hypercholesterolemia, unspecified (principal); E53.8 Deficiency of other specified B group vitamins; E55.9 Vitamin D deficiency, unspecified; R73.01 Impaired fasting glucose; I10 Essential (primary) hypertension
CPT/HCPCS: 36415; 80053; 80061; 82306; 82607; 82746; 83036; 84443; 85025

== ENCOUNTER 2023-07-01 08:49 | Outpatient (AMB) | payer MEDICARE, SELFPAY ==
[2023-07-01 08:50] VITALS: BP 136/90; PULSE 73; O2SAT 99; BMI 24.2
--- NOTE | 2023-07-01 08:50 | A.OFFPC_ITS ---
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 Required: No Accompanied by: Self / Same As Patient Allergies No Known Allergies [No Known Allergies*] Allergy (Verified 07/01/23 09:03) Medication List - Last Reconciled 07/01/23 by Chris Wilkerson MD cholecalciferol (vitamin D3) 25 mcg PO DAILY fluticasone propionate 50 mcg/actuation 2 sprays intranasal DAILY PRN 30 days meclizine 25 mg PO BID PRN mecobalamin (vitamin B12) 1,000 mcg PO DAILY miscellaneous medical supply (Blood Pressure Cuff) As directed pantoprazole 40 mg PO DAILY PRN 90 days Tobacco use date assessed: 07/01/23 Fall risk assessment: No Falls in past year Last assessed Fall Risk: 07/01/23 Dental Screening Dental Screen Date: 07/01/23 Did you have a dental visit in the last 12 months?: Yes Did you have a dental problem in the last 6 months where you did not have access to dental care?: No Was dental information given to patient?: Patient has dentist HPI 4 month follow up/hyperlipidemia, IFG, GERD HPI Details Patient comes in today for his follow up visit States that he feels okay He denies any headaches or dizziness Denies any chest pains, no SOB No nausea/vomiting, no abdominal pain No change in bowel habits noted Had his follow up labs done last week - to discuss his results Adds that he will be due for his repeat colonoscopy in a couple of months - had his last one done with Dr. Poole in 09/2013 and was recommended repeat procedure in 10 years [facility] Medical History Insomnia Vitamin B12 deficiency Vitamin D deficiency Impaired fasting glucose Cervical disc disease GERD without esophagitis Pure hypercholesterolemia Surgical History History of colonoscopy (~10/09/13) History of surgery History of arthroscopic surgery of elbow History of hemorrhoidectomy Family History Father Suicide Mother Heart disease CVD (cardiovascular disease) Diabetes Emphysema lung Other Mental health problem Social History Housing: House Alcohol intake: current Alcohol intake frequency: holidays/special occasions only Patient Tobacco Use Status: Never used Tobacco e-Cigarette/Vaping Use: Never Used Second Hand Smoke Exposure: Yes service: No Current occupational status: employed and retired 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 1. Little interest or pleasure in doing things: not at all 2. Feeling down, depressed, or hopeless: not at all 3. Trouble falling or staying asleep, or sleeping too much: not at all 4. Feeling tired or having little energy: not at all 5. Poor appetite or overeating: not at all 6. Feeling bad about yourself - or that you are a failure or have let yourself or your family down: not at all 7. Trouble concentrating on things, such as reading the newspaper or watching television: not at all 8. Moving or speaking so slowly that other people could have noticed. Or the opposite - being so fidgety or restless that you have been moving around a lot more than usual: not at all 9. Thoughts that you would be better off or of hurting yourself in some way: not at all Total score: 0 Depression Screening Interpretation: Negative Depression Screening Done: Yes 99970 - PHQ-9 Billing: Yes Source: Developed by Drs. Everette Alejandre, Donna Lucas, Markell Waldron and colleagues, with an educational thanh from [employer]. Thrive Questionnaire Date Thrive assessed: 07/01/23 I am a: Patient What is your living situation today?: I have a steady place to live Within the past 12 months, did the food you bought not last and you didn't have the money to get more?: Never true Within the past 12 months, did you worry whether your food would run out before you got money to buy more?: Never true Do you have trouble paying for medicines?: No Do you have trouble getting transportation to medical appointments?: No Do you have trouble paying your heating and electricity bill?: No Do you have trouble taking care of your child, family member or friend?: No Do you have trouble with day-to-day activities such as bathing, preparing meals, shopping, managing finances, etc.?: No Are you currently unemployed and looking for a job?: No Are you interested in more education?: No Please select the resources that you would like help with: None Currently or been in a relationship where the following occur: no concerns reported AUDIT C Alcohol Use Questionnaire (AUDIT-C) 1. How often do you have a drink containing alcohol?: Never 3. How often do you have six or more drinks on one occasion?: Never Total Score: 0 Score Reviewed/Action Taken: Yes ELIA-7 AMB Questionnaire ELIA-7 Date ELIA - 7 assessed: 07/01/23 Feeling nervous, anxious, or on edge: 1 = Several days Not being able to stop or control worryin = Several days Worrying too much about different things: 1 = Several days Trouble relaxin = Several days Being so restless that it is hard to sit still: 1 = Several days Becoming easily annoyed or irritable: 1 = Several days Feeling afraid as if something awful might happen: 1 = Several days Total ELIA-7 score (0-4 normal; 5-9 mild; 10-14 moderate; 15-21 severe): 7 Source: Developed by Drs. Everette Alejandre, Donna Lucas, Markell Waldron and colleagues, with an educational thanh from [employer]. Review of Systems Const Denies chills, Denies fatigue, Denies fever(s) and Denies headache(s) ENT Denies dysphagia, Denies dizziness, Denies otalgia, Denies headache(s), Reports neck pain (chronic), Denies odynophagia and Denies sore throat Card Denies chest pain, Denies irregular heart rhythm, Denies palpitations and Denies dyspnea Resp Denies cough and Denies dyspnea GI Denies abdominal pain, Denies constipation, Denies dysphagia, Denies heartburn, Denies diarrhea, Denies nausea, Denies odynophagia and Denies vomiting Denies dysuria, Denies nocturia and Denies urinary frequency Musc Reports neck pain (chronic) Skin/Breast Denies rash Neuro Denies dizziness and Denies headache(s) Endo Denies fatigue and Denies palpitations Physical exam (Primary Care) Vital Signs: Last Vital Signs Pulse 73 07/01/23 08:50 BP 136/90 H 07/01/23 08:50 Pulse Ox 99 07/01/23 08:50 Oxygen Delivery Method Room Air 07/01/23 08:50 BMI result Body Mass Index 24.2 Tobacco/Smoking Status: Tobacco use Status Tobacco use date assessed 07/01/23 07/01/23 08:54 Patient Tobacco Use Status Never used Tobacco 07/01/23 08:54 e-Cigarette/Vaping Use Never Used 07/01/23 08:54 PHQ-9: PHQ-9 Score PHQ-9: Total score 0 07/01/23 08:54 Depression Screening Interpretation: Negative Thrive Assessment: Date of Thrive Assessment Date Thrive assessed 07/01/23 07/01/23 08:54 Currently or been in a relationship where the following occur: no concerns reported Const General: no acute distress and alert HENMT Ears: TM's normal bilaterally and EAC's normal Throat: Yes posterior oropharynx normal and Yes tonsils normal Neck Neck: Yes no lymphadenopathy and Yes supple Lymphatic: no lymphadenopathy noted Resp Auscultation: clear to auscultation bilaterally, no rales and no wheezes Cardio Rate: regular rate Rhythm: regular rhythm Heart sounds: no murmurs GI Palpation (GI): Soft to palpation and nontender Auscultation: normal bowel sounds Back/Spine/Pelvis Cervical Spine: Cervical spine tenderness Skin Rashes: no rashes Extrem General: Yes no clubbing, cyanosis or edema Results Reviewed Results Reviewed: Laboratory Tests 11/05/22 06/24/23 06/24/23 07:30 09:57 09:57 WBC 5.7 Hgb 14.3 Hct 44.8 Plt Count 170 Sodium 140 Potassium 4.1 Creatinine 0.93 Estimated GFR > 60 Fasting Glucose 117 H Hemoglobin A1c % 5.3 Calcium 9.5 AST 18 ALT 13 Triglycerides 112 Cholesterol 177 LDL Cholesterol, Calc 106 H HDL Cholesterol 49 Vitamin B12 719 25-OH Vitamin D Total 52.7 TSH 2.08 Ur Specific [place] 1.020 Urine Protein Negative Urine Glucose (UA) Negative Urine Blood Negative Assessment and Plan Assessment & Plan (1) Pure hypercholesterolemia: Code(s): E78.00 - Pure hypercholesterolemia, unspecified Plan: Results of his labs done last week reviewed and discussed with patient Reinforced low cholesterol diet; Patient still prefers not to take any Rx and will keep working on his diet and lifestyle changes - advised that his cholesterol numbers have been within acceptable range for a while now Will recheck his labs and fasting lipids in 4 months for follow up (2) Impaired fasting glucose: Code(s): R73.01 - Impaired fasting glucose Plan: HgbA1c was normal at 5.3% on his labs done last week; was at 5.5% previously Reinforced low calorie diet/exercise as tolerated (3) Elevated blood-pressure reading without diagnosis of hypertension: Code(s): R03.0 - Elevated blood-pressure reading, without diagnosis of hypertension Plan: His repeat blood pressure was still elevated at 140/90 mm Reinforced low sodium diet He is reminded to continue monitoring his BP regularly - goal is systolic BP of 120 mm or less (4) GERD without esophagitis: Code(s): K21.9 - Gastro-esophageal reflux disease without esophagitis Plan: DIetary restrictions reinforced Continue Pantoprazole 40 mg QD (5) Vitamin D deficiency: Code(s): E55.9 - Vitamin D deficiency, unspecified Plan: Continue Vitamin D3 1000 units QD (6) Vitamin B12 deficiency: Code(s): E53.8 - Deficiency of other specified B group vitamins Plan: Corrected - continue Vitamin B12 1000 mcg QD (7) Cervical disc disease: Code(s): M50.90 - Cervical disc disorder, unspecified, unspecified cervical region Plan: Cervical spine x-rays done a couple of years ago (2020) revealed (+) moderate degenerative changes throughout the cervical spine, with mild progression of changes from previous Advised to continue with the neck exercises that he was previously taught by PT; can call for referral again at any time if his neck pain gets worse (8) Insomnia: Code(s): G47.00 - Insomnia, unspecified Qualifiers: Insomnia type: unspecified Qualified Code(s): G47.00 - Insomnia, unspecified Plan: Sleep hygiene reinforced Was started on a trial of Trazodone 50 mg Q HS PRN previously but patient states that he has been sleeping well lately, especially since he retired a few months ago; prefers not to take any Rx for sleep if he can avoid it (9) Colon cancer screening: Code(s): Z12.11 - Encounter for screening for malignant neoplasm of colon Plan: Patient had his last colonoscopy with Dr. Poole done in 09/2013 and was recommended to have repeat colonoscopy in 10 years - 09/2023 Will refer him back to Dr. Poole for repeat colonoscopy early next year Plan Follow up in 4 months Orders: Orders Complete Blood Count Auto Diff 4 Months I10 - Essential (primary) hypertension TSH reflex Free T4 4 Months E78.00 - Pure hypercholesterolemia, unspecified UA CC w/rflx Micro + Cult 4 Months R30.0 - Dysuria Comprehensive [place]. Panel Fast 4 Months E78.00 - Pure hypercholesterolemia, unspecified Lipid Panel 4 Months E78.00 - Pure hypercholesterolemia, unspecified Hemoglobin A1c 4 Months E11.9 - Type 2 diabetes mellitus without complications Vitamin D 25-OH Total 4 Months E55.9 - Vitamin D deficiency, unspecified Referrals Gastroenterology Referral Z12.11 - Encounter for screening for malignant neoplasm of colon Coding Level of Care Code Est Pt Level 4 (10401) Diagnoses Pure hypercholesterolemia E78.00 Impaired fasting glucose R73.01 Elevated blood-pressure reading without diagnosis of hypertension R03.0 GERD without esophagitis K21.9 Vitamin D deficiency E55.9 Vitamin B12 deficiency E53.8 Cervical disc disease M50.90 Insomnia, unspecified type G47.00 Insomnia type: unspecified Colon cancer screening Z12.11
[2023-07-01 09:23] VITALS: BP 140/90
== END 2023-07-01 09:23 | disposition home or self-care (01) ==
PROVIDERS: PCP Internal Medicine; Visit Provider Internal Medicine
DX: E78.00 Pure hypercholesterolemia, unspecified (principal); R73.01 Impaired fasting glucose; R03.0 Elevated blood-pressure reading, without diagnosis of hypertension; K21.9 Gastro-esophageal reflux disease without esophagitis; E55.9 Vitamin D deficiency, unspecified; E53.8 Deficiency of other specified B group vitamins; M50.90 Cervical disc disorder, unspecified, unspecified cervical region; G47.00 Insomnia, unspecified; Z12.11 Encounter for screening for malignant neoplasm of colon
CPT/HCPCS: 99214

== ENCOUNTER 2023-11-14 08:34 | Outpatient (REF) | payer OTHER, SELFPAY ==
[2023-11-14 08:50] LABS: MANUAL DIFF FLAG NO
[2023-11-14 09:18] LABS: Basophils Percent Auto 0.2 % (0-2); Eosinophils Absolute Auto 0.2 X10*3/uL (0.0-0.4); Eosinophils Percent Auto 5.4 % (0-4); Hematocrit 43.1 % (42.0-52.0); Hemoglobin 14.1 g/dl (14.0-18.0); Imm Gran Abs Auto 0.01 X10*3/uL (0.00-0.03); Imm Gran Pct Auto 0.2 % (0.0-0.4); Lymphocytes Absolute Auto 1.7 X10*3/uL (1.2-4.9); Lymphocytes Percent Auto 40.9 % (20-40); Mean Corpuscular HGB Conc 32.7 g/dl (31.0-36.0); Mean Corpuscular Hemoglobin 29.1 pg (27.0-33.0); Mean Corpuscular Volume 88.9 fL (80.0-98.0); Mean Platelet Volume 9.5 fL (9.4-12.4); Monocytes Absolute Auto 0.3 X10*3/uL (0.1-1.2); Monocytes Percent Auto 7.8 % (2-11); Neutrophils Absolute Auto 1.9 x10*3/uL (2.0-8.3); Neutrophils Percent Auto 45.5 % (45-73); Platelet Count 183 X10*3/uL (160-400); Red Blood Count 4.85 X10*6/uL (4.60-5.80); Red Cell Distribution Width 13.7 % (11.0-16.0); White Blood Count 4.1 X10*3/uL (4.8-10.8)
[2023-11-14 09:27] LABS: Estimated Average Glucose 108 mg/dL; Hemoglobin A1c % 5.4 % (<6.0)
[2023-11-14 09:27] LABS: Appearance Urine Clear; Color Urine Yellow; Glucose Urine UA Negative (Negative); Leukocyte Esterase Urine Negative (Negative); Nitrite Urine Negative (Negative); PH 5.5 (5.0-9.0); Urine Blood Negative (Negative); Urine Ketones Negative (Negative); Urine Protein Negative (Neg-Trace)
[2023-11-14 10:02] LABS: Alanine Aminotransferase 16 U/L (0-40); Albumin Level 4.2 g/dL (3.5-5.0); Alkaline Phosphatase 86 U/L (39-117); Anion Gap 10 (12-20); Aspartate Amino Transferase 17 U/L (5-37); Bilirubin Total 0.5 mg/dL (0.0-1.0); Blood Urea Nitrogen 21 mg/dL (9-16); Calcium 9.1 mg/dL (8.4-10.2); Carbon Dioxide 27 mmol/L (22-29); Chloride 109 mmol/L (96-108); Cholesterol 202 mg/dL (<200); Estimated Glomerular Filt Rate > 60; Glucose Fasting 107 mg/dL (60-99); HDL Cholesterol 45 mg/dL (>40); LDL Cholesterol Calculated 137 mg/dL (<100); Potassium 4.3 mmol/L (3.3-5.1); Sodium 142 mmol/L (135-145); Total Protein 7.4 g/dL (6.5-8.0); Triglycerides 104 mg/dL (<150)
[2023-11-14 10:18] LABS: TSH reflex Free T4 1.75 uIU/mL (0.32-4.0); Vitamin D 25-OH Total 43.2 ng/mL (>30)
== END 2023-11-14 08:35 | disposition home or self-care (01) ==
LOC: HO.LAB 08:34
PROVIDERS: PCP Internal Medicine; Visit Provider Internal Medicine
DX: E78.00 Pure hypercholesterolemia, unspecified (principal); E11.9 Type 2 diabetes mellitus without complications; R30.0 Dysuria; E55.9 Vitamin D deficiency, unspecified; I10 Essential (primary) hypertension
CPT/HCPCS: 36415; 80053; 80061; 81003; 82306; 83036; 84443; 85025

== ENCOUNTER 2023-11-21 08:48 | Outpatient (AMB) | payer MEDICARE, SELFPAY ==
--- NOTE | 2023-11-21 08:51 | MHC.PC.OV ---
Vital Signs 11/21/23 08:53 Height 5 ft 9 in Weight 166 lb 4 oz BMI 24.5 BP 128/68 Blood Pressure Location Lt brachial Position Sitting Pulse 78 Pulse Source Pulse Oximeter Pulse Oximetry (%) 99 Oxygen Delivery Method Room Air Intake Visit Reasons: Annual Exam Intake Note: Patient is here today for a physical and lab results. Complaint of heel of the foot pain when walking, left is worse than right. Drag Down Required: No Zoo Caretaker: Not Required per policy Accompanied by: Self / Same As Patient Allergies No Known Allergies [No Known Allergies*] Allergy (Verified 11/21/23 09:23) Medication List - Last Reconciled 11/21/23 by Chris Wilkerson MD cholecalciferol (vitamin D3) 25 mcg PO DAILY meclizine 25 mg PO BID PRN mecobalamin (vitamin B12) 1,000 mcg PO DAILY miscellaneous medical supply (Blood Pressure Cuff) As directed pantoprazole 40 mg PO DAILY PRN 90 days Tobacco use date assessed: 11/21/23 Fall risk assessment: No Falls in past year Last assessed Fall Risk: 11/21/23 Dental Screening Dental Screen Date: 11/21/23 Did you have a dental visit in the last 12 months?: Yes Did you have a dental problem in the last 6 months where you did not have access to dental care?: No Was dental information given to patient?: Patient has dentist HPI Annual Exam HPI Details Patient comes in today for his annual physical examination States that he has been feeling depressed lately - mostly due to a couple of his children dealing with some substance abuse issues Would like to request for a referral for counseling He denies any headaches or dizziness Denies any chest pains, no SOB No nausea/vomiting, no abdominal pain No change in bowel habits noted He denies any acute urinary symptoms Adds that he has also been experiencing increased pain over his left heel area lately, especially when he starts to walk Recalls (+) remote Hx of left heel surgery many years ago Had his follow up labs done last week - to discuss his results States that he is now scheduled for his repeat colonoscopy with Dr. Poole on 02/10/2024 [facility] Medical History Insomnia Vitamin B12 deficiency Vitamin D deficiency Impaired fasting glucose Cervical disc disease GERD without esophagitis Pure hypercholesterolemia Surgical History History of colonoscopy (~10/09/13) History of surgery History of arthroscopic surgery of elbow History of hemorrhoidectomy Family History Father Suicide Mother Heart disease CVD (cardiovascular disease) Diabetes Emphysema lung Other Mental health problem Social History Housing: House Alcohol intake: current Alcohol intake frequency: holidays/special occasions only Patient Tobacco Use Status: Never used Tobacco e-Cigarette/Vaping Use: Never Used Second Hand Smoke Exposure: Yes service: No Current occupational status: employed and retired 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 1. Little interest or pleasure in doing things: not at all 2. Feeling down, depressed, or hopeless: nearly every day 3. Trouble falling or staying asleep, or sleeping too much: several days 4. Feeling tired or having little energy: not at all 5. Poor appetite or overeating: not at all 6. Feeling bad about yourself - or that you are a failure or have let yourself or your family down: not at all 7. Trouble concentrating on things, such as reading the newspaper or watching television: not at all 8. Moving or speaking so slowly that other people could have noticed. Or the opposite - being so fidgety or restless that you have been moving around a lot more than usual: not at all 9. Thoughts that you would be better off or of hurting yourself in some way: not at all Total score: 4 Depression Screening Interpretation: Positive Depression Screening Follow-up: Community Mental Health Worker F/U Depression Screening Done: Yes 97210 - PHQ-9 Billing: Yes Source: Developed by Drs. Everette Alejandre, Donna Lucas, Markell Waldron and colleagues, with an educational thanh from [employer]. Thrive Questionnaire Date Thrive assessed: 11/21/23 I am a: Patient What is your living situation today?: I have a steady place to live Within the past 12 months, did the food you bought not last and you didn't have the money to get more?: Never true Within the past 12 months, did you worry whether your food would run out before you got money to buy more?: Never true Do you have trouble paying for medicines?: No Do you have trouble getting transportation to medical appointments?: No Do you have trouble paying your heating and electricity bill?: No Do you have trouble taking care of your child, family member or friend?: No Do you have trouble with day-to-day activities such as bathing, preparing meals, shopping, managing finances, etc.?: No Are you currently unemployed and looking for a job?: No Are you interested in more education?: No Currently or been in a relationship where the following occur: no concerns reported THRIVE Score: 0 AUDIT C Alcohol Use Questionnaire (AUDIT-C) 1. How often do you have a drink containing alcohol?: Monthly or less 2. How many drinks containing alcohol do you have on a typical day when you are drinking?: 1 or 2 Total Score: 1 Score Reviewed/Action Taken: Yes ELIA-7 AMB Questionnaire ELIA-7 Date ELIA - 7 assessed: 11/21/23 Feeling nervous, anxious, or on edge: 0 = Not at all Not being able to stop or control worryin = Not at all Worrying too much about different things: 0 = Not at all Trouble relaxin = Not at all Being so restless that it is hard to sit still: 0 = Not at all Becoming easily annoyed or irritable: 0 = Not at all Feeling afraid as if something awful might happen: 0 = Not at all Total ELIA-7 score (0-4 normal; 5-9 mild; 10-14 moderate; 15-21 severe): 0 Source: Developed by Drs. Everette Alejandre, Donna Lucas, Markell Waldron and colleagues, with an educational thanh from [employer]. Review of Systems Const Denies chills, Denies fatigue, Denies fever(s), Denies headache(s), Denies malaise and Denies weakness Eyes Denies blurry vision, Denies change in vision, Denies irritation and Denies itchy eyes ENT Denies dysphagia, Denies dizziness, Denies otalgia, Denies headache(s), Denies nasal congestion, Denies neck pain, Denies odynophagia and Denies sore throat Card Denies chest pain, Denies rapid heart rate, Denies irregular heart rhythm, Denies palpitations and Denies dyspnea Resp Denies chest congestion, Denies cough, Denies dyspnea and Denies wheezing GI Denies abdominal pain, Denies bloating, Denies constipation, Denies dysphagia, Denies heartburn, Denies diarrhea, Denies nausea, Denies odynophagia and Denies vomiting Denies hematuria, Denies difficulty urinating, Denies dysuria, Denies urinary frequency and Denies urinary urgency Musc Details: left heel pain Denies back pain, Denies arthralgias, Denies joint swelling, Denies muscle weakness and Denies neck pain Skin/Breast Denies change in pigmentation, Denies lesions, Denies rash and Denies unusual bruising Neuro Denies dizziness, Denies headache(s), Denies paresthesias and Denies weakness Psych Reports depression Endo Denies fatigue and Denies palpitations Aller/Immun Denies itchy eyes and Denies wheezing Physical exam (Primary Care) Vital Signs: Last Vital Signs Pulse 78 11/21/23 08:53 BP 128/68 11/21/23 08:53 Pulse Ox 99 11/21/23 08:53 Oxygen Delivery Method Room Air 11/21/23 08:53 BMI result Body Mass Index 24.5 Tobacco/Smoking Status: Tobacco use Status Tobacco use date assessed 11/21/23 11/21/23 08:59 Patient Tobacco Use Status Never used Tobacco 11/21/23 08:59 e-Cigarette/Vaping Use Never Used 11/21/23 08:59 PHQ-9: PHQ-9 Score PHQ-9: Total score 0 11/21/23 08:59 Depression Screening Interpretation: Positive Depression Screening Follow-up: Community Mental Health Worker F/U Thrive Assessment: Date of Thrive Assessment Date Thrive assessed 11/21/23 11/21/23 08:59 Currently or been in a relationship where the following occur: no concerns reported Const General: no acute distress, alert and awake Orientation/consciousness: patient oriented x3 HENMT Head: Yes normocephalic and Yes atraumatic Ears: external ears normal, TM's normal bilaterally and EAC's normal General nose exam: No nasal discharge present Face and sinus: Yes normal facial exam and Yes sinuses nontender Teeth and gingiva: dentition normal Throat: Yes posterior oropharynx normal and Yes tonsils normal (no TP congestion) Eyes Eyelids: Yes eyelids normal Conjunctivae: conjunctivae normal Pupils: Equal, round and reactive pupils present EOM: EOMs intact bilaterally Neck Neck: Yes no lymphadenopathy and Yes supple Thyroid: Thyroid normal Resp Auscultation: clear to auscultation bilaterally, no rales and no wheezes Cardio Rate: regular rate Rhythm: regular rhythm Heart sounds: no murmurs GI Palpation (GI): Soft to palpation, nontender and No hepatosplenomegaly present Auscultation: normal bowel sounds General: Yes no CVA tenderness Back/Spine/Pelvis Back: no CVA tenderness Cervical Spine: Cervical spine tenderness (mild) Thoracic/Lumbar Spine: No lumbar spinal tenderness Skin Lesions: no lesions Rashes: no rashes Neuro General: patient oriented x3, moves all extremities, no focal motor deficits and CN's II-XI intact bilaterally Cranial nerves: Yes Equal, round and reactive pupils present Cognition (Neuro): normal cognition Gait exam (Neuro): Normal gait present Extrem General: Yes no clubbing, cyanosis or edema Left lower extremity: foot Details: tenderness Location: of the calcaneus Results Reviewed Results Reviewed: Laboratory Tests 11/05/22 11/14/23 11/14/23 07:32 08:48 08:48 WBC 4.1 L Hgb 14.1 Hct 43.1 Plt Count 183 Sodium 142 Potassium 4.3 Creatinine 1.02 Estimated GFR > 60 Fasting Glucose 107 H Hemoglobin A1c % 5.4 Calcium AST ALT Triglycerides 104 Cholesterol 202 H LDL Cholesterol, Calc 137 H HDL Cholesterol 45 PSA Screen 0.51 25-OH Vitamin D Total 43.2 TSH 1.75 Ur Specific [place] Urine Protein Urine Glucose (UA) Urine Blood Urine Nitrite Ur Leukocyte Esterase 11/14/23 11/14/23 11/14/23 08:48 08:48 08:50 WBC Hgb Hct Plt Count Sodium Potassium Creatinine Estimated GFR Fasting Glucose Hemoglobin A1c % Calcium 9.1 AST 17 ALT 16 Triglycerides Cholesterol LDL Cholesterol, Calc HDL Cholesterol PSA Screen 25-OH Vitamin D Total TSH Ur Specific [place] 1.020 Urine Protein Negative Urine Glucose (UA) Negative Urine Blood Negative Urine Nitrite Ur Leukocyte Esterase 03/21/24 08:50 WBC Hgb Hct Plt Count Sodium Potassium Creatinine Estimated GFR Fasting Glucose Hemoglobin A1c % Calcium AST ALT Triglycerides Cholesterol LDL Cholesterol, Calc HDL Cholesterol PSA Screen 25-OH Vitamin D Total TSH Ur Specific [place] Urine Protein Urine Glucose (UA) Urine Blood Urine Nitrite Negative Ur Leukocyte Esterase Negative Assessment and Plan Assessment & Plan (1) Annual physical exam: Code(s): Z00.00 - Encounter for general adult medical examination without abnormal findings Plan: Results of his labs done last week reviewed and discussed with patient He is scheduled for his repeat colonoscopy with Dr. Poole in January 2024 (2) Pure hypercholesterolemia: Code(s): E78.00 - Pure hypercholesterolemia, unspecified Plan: Patient is advised that his fasting lipids have increased from previous, especially his LDL cholesterol level Reinforced low cholesterol diet; Patient still prefers not to take any Rx and will keep working on his diet and lifestyle changes and try to get his cholesterol levels back down Will recheck his labs and fasting lipids in 4 months for follow up (3) Impaired fasting glucose: Code(s): R73.01 - Impaired fasting glucose Plan: HgbA1c was normal at 5.3% and 5.5% when checked previously Reinforced low calorie diet/exercise as tolerated (4) Elevated blood-pressure reading without diagnosis of hypertension: Code(s): R03.0 - Elevated blood-pressure reading, without diagnosis of hypertension Plan: His blood pressure today appears much better controlled - is normal at 128/68 Reinforced low sodium diet He is reminded to continue monitoring his BP regularly - goal is systolic BP of 120 mm or less (5) GERD without esophagitis: Code(s): K21.9 - Gastro-esophageal reflux disease without esophagitis Plan: DIetary restrictions reinforced Continue Pantoprazole 40 mg QD He believes that he will also be getting a repeat EGD with his colonoscopy in January 2024 (6) Vitamin D deficiency: Code(s): E55.9 - Vitamin D deficiency, unspecified Plan: Continue Vitamin D3 1000 units QD (7) Vitamin B12 deficiency: Code(s): E53.8 - Deficiency of other specified B group vitamins Plan: Corrected - continue Vitamin B12 1000 mcg QD (8) Cervical disc disease: Code(s): M50.90 - Cervical disc disorder, unspecified, unspecified cervical region Plan: Cervical spine x-rays done a couple of years ago (2020) revealed (+) moderate degenerative changes throughout the cervical spine, with mild progression of changes from previous He is again advised to continue with the neck exercises that he was previously taught by PT; can call for referral again at any time if his neck pain gets worse (9) Pain of left heel: Code(s): M79.672 - Pain in left foot Plan: Will send him for x-rays of the left heel for further evaluation (10) Insomnia: Code(s): G47.00 - Insomnia, unspecified Qualifiers: Insomnia type: unspecified Qualified Code(s): G47.00 - Insomnia, unspecified Plan: Sleep hygiene reinforced Was started on a trial of Trazodone 50 mg Q HS PRN previously but patient states that he has been sleeping well lately, especially since he retired a few months ago; prefers not to take any Rx for sleep if he can avoid it (11) Depression: Code(s): F32.A - Depression, unspecified Qualifiers: Depression Type: unspecified Qualified Code(s): F32.A - Depression, unspecified Plan: Per request, will refer for counseling / therapy Plan Follow up in 4 months Orders: Orders XR calcaneus LT min 2V Today M79.672 - Pain in left foot Comprehensive [place]. Panel Fast 4 Months E78.00 - Pure hypercholesterolemia, unspecified Lipid Panel 4 Months E78.00 - Pure hypercholesterolemia, unspecified Referrals Psychiatry Referral F32.A - Depression, unspecified Coding Level of Care Code Est Pt Prev Care >65y(04736) Diagnoses Annual physical exam Z00.00 Pure hypercholesterolemia E78.00 Impaired fasting glucose R73.01 Elevated blood-pressure reading without diagnosis of hypertension R03.0 GERD without esophagitis K21.9 Vitamin D deficiency E55.9 Vitamin B12 deficiency E53.8 Cervical disc disease M50.90 Pain of left heel M79.672 Insomnia, unspecified type G47.00 Insomnia type: unspecified Depression, unspecified depression type F32.A Depression Type: unspecified
[2023-11-21 08:53] VITALS: BP 128/68; PULSE 78; O2SAT 99; BMI 24.5
== END 2023-11-21 09:46 | disposition home or self-care (01) ==
PROVIDERS: PCP Internal Medicine; Visit Provider Internal Medicine
DX: Z00.00 Encounter for general adult medical examination without abnormal findings (principal); E78.00 Pure hypercholesterolemia, unspecified; R73.01 Impaired fasting glucose; R03.0 Elevated blood-pressure reading, without diagnosis of hypertension; K21.9 Gastro-esophageal reflux disease without esophagitis; E55.9 Vitamin D deficiency, unspecified; E53.8 Deficiency of other specified B group vitamins; M50.90 Cervical disc disorder, unspecified, unspecified cervical region; M79.672 Pain in left foot; G47.00 Insomnia, unspecified; F32.A Depression, unspecified
CPT/HCPCS: 99397

== ENCOUNTER 2023-11-21 09:54 | Outpatient (REF) | payer OTHER, SELFPAY ==
--- NOTE | ~2023-11-21 | XR_ITS ---
EXAMINATION: XR CALCANEUS, LEFT CLINICAL INFORMATION: Pain in left foot COMPARISON: None available. TECHNIQUE: Lateral and axial views of the left calcaneus were obtained. FINDINGS: The bones are intact. No fracture. Alignment is anatomic. Joint spaces are maintained. There is a large posterior plantar calcaneal spur with a 3 mm calcification noted in the soft tissues anterior to the spur. There is a large Achilles enthesophyte. XR/XR calcaneus LT min 2V IMPRESSION: Large posterior plantar calcaneal spur and large Achilles enthesophyte.
== END 2023-11-21 09:55 | disposition home or self-care (01) ==
LOC: HO.XRAY 09:54
PROVIDERS: PCP Internal Medicine; Visit Provider Internal Medicine
DX: M79.672 Pain in left foot (principal)
CPT/HCPCS: 73650

== ENCOUNTER 2024-02-10 06:13 | Day surgery (SDC) | payer MEDICARE, SELFPAY ==
[2024-02-06 12:55] VITALS: BMI 26.0
[2024-02-10 06:35] VITALS: BP 137/86; PULSE 67; RESP 18; TEMP 36.9; O2SAT 99; BMI 26.3
[2024-02-10] MEDS: Lactated Ringers 1,000 ML 50 ML IVCONT (06:56)
--- NOTE | 2024-02-10 07:29 | HO.ANESPROP2 ---
HPI - Anesthesia Eval Consult details Narrative: 68 yo male patient for EGD and Colonoscopy [facility] Active Problems Active Problems: All Active Problems Pain of left heel (Acute) Depression (Acute) Colon cancer screening (Acute) Throat clearing (Acute) Elevated blood-pressure reading without diagnosis of hypertension (Acute) Otitis media (Acute) Prehypertension (Acute) Cervical arthritis with myelopathy (Acute) Benign positional vertigo (Acute) Pulsatile tinnitus of right ear (Acute) Annual physical exam (Acute) Insomnia (Acute) Vitamin B12 deficiency (Acute) Vitamin D deficiency (Acute) Impaired fasting glucose (Acute) Cervical disc disease (Acute) GERD without esophagitis (Acute) Pure hypercholesterolemia (Acute) Past Medical History Medical History Insomnia Vitamin B12 deficiency Vitamin D deficiency Impaired fasting glucose Cervical disc disease GERD without esophagitis Pure hypercholesterolemia Family History Family History Father Suicide Mother Heart disease CVD (cardiovascular disease) Diabetes Emphysema lung Other Mental health problem Family history of problems with anesthesia: No Surgical History Surgical History History of esophagogastroduodenoscopy (EGD) History of colonoscopy (~10/09/13) History of surgery History of arthroscopic surgery of elbow History of hemorrhoidectomy History of Problems with Anesthesia: No Social History Social History Household Members: Spouse Housing: House Alcohol intake: current Alcohol intake frequency: does not drink Patient Tobacco Use Status: Never used Tobacco e-Cigarette/Vaping Use: Never Used Second Hand Smoke Exposure: Yes Are you DNR?: No Advance Directives: No Advance Directives Information Provided: Yes Nutrition Risks: No Nutritional Risk service: No Current occupational status: employed and retired 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 Cognitive needs: No Hearing needs: No Vision needs: Yes (glasses) Meds Allergies Allergy/AdvReac Type Severity Reaction Status Date / Time No Known Allergies Allergy Verified 11/21/23 09:23 [No Known Allergies*] Active Medications: Current Medications Lactated Ringer's (Lr) 1,000 mls @ 50 mls/hr IVCONT .Q20H EN Last Admin: 02/10/24 06:56 Dose: 50 mls/hr Sodium Biphosphate/Sodium Phosphate (Sodium Phosphate,[place]-Dibasic 133 Ml Enema) 133 ml [place] ONCE PRN PRN Reason: Poor Colonoscopy Prep Results Home Medications ?Medication ?Instructions ?Recorded ?Confirmed ?Last Taken ?Type cholecalciferol (vitamin D3) 25 25 mcg PO DAILY 08/15/20 02/06/24 Unknown History mcg (1,000 unit) capsule mecobalamin (vitamin B12) 1,000 1,000 mcg PO DAILY 08/15/20 02/06/24 Unknown History mcg chewable tablet Exam Height,Weight and Vital Signs: Height 5 ft 7 in Weight 76.3 kg Last Vital Signs Temp 98.4 F 02/10/24 06:35 Pulse 67 02/10/24 06:35 Resp 18 02/10/24 06:35 BP 137/86 02/10/24 06:35 Pulse Ox 99 02/10/24 06:35 O2 Del Method Room Air 02/10/24 06:35 Airway Mallampati Class: II TM Dist: >3cm Neck ROM: Full Loose/Missing/Broken Teeth: Yes (Some missing. Denies broken or loose teeth) Heart: RRR Lungs: CTAB Assessment and Plan Assessment Anesthesia Assessment: Anesthesia Plan Discussed and Chart Reviewed Final Anesthetic Review Family History of Problems with Anesthesia: No History of Problems with Anesthesia: No NPO: Yes ASA Class: II Final Preanesthetic Review: No Changes in Pt Med Stat, Meds/Allgs Chart Reviewed, Consent Obtained/Reviewed and Anes Risks/Benef Reviewed Patient Risk: Low Procedure Risk: Low Assessment/Block/Sedation in SS: Assess/Block/Sedation-SS Anesthetic Plan Anesthetic Plan: TIVA Disposition: Standard PACU
[2024-02-10 08:37] VITALS: BP 129/69; PULSE 63; RESP 18; TEMP 36.1; O2SAT 100
--- NOTE | 2024-02-10 08:42 | P.BOP_ITS ---
Brief Operative Note Date of Service: 02/10/24 Pre-op diagnosis: GERD, Screening Post-op diagnosis: other (Hiatal hernia, Gastritis, Diverticulosis) Procedure: EGD with biopsies, Colonoscopy to the cecum and TI Surgeon: Everette Poole MD Anesthesia: MAC Was an Hat And Cap Parts Cutter Hand used for this Procedure?: No Estimated blood loss (mL): 2.0 Pathology: other (A. Proximal stomach B. EG Junction at 36cm) Condition: stable Disposition: PACU
[2024-02-10 08:52] VITALS: BP 139/88; PULSE 66; RESP 16; TEMP 36.1; O2SAT 99
--- NOTE | 2024-02-10 09:11 | OP_ITS ---
DATE OF SERVICE: 02/10/2024 SURGEON: Everette Poole MD INDICATIONS: The patient presents for evaluation of gastroesophageal reflux, occasional sense of dysphagia, and colorectal cancer screening. Full consent was obtained from him for this, including risks of bleeding and perforation. PREOPERATIVE DIAGNOSIS: POSTOPERATIVE DIAGNOSIS: PROCEDURE PERFORMED: Esophagogastroduodenoscopy with biopsies, and colonoscopy to the cecum and terminal ileum. ESTIMATED BLOOD LOSS: COMPLICATIONS: ANESTHESIA: Medication used; monitored anesthesia care. ASSISTANTS: SPECIMENS: PREOPERATIVE DIAGNOSES: Gastroesophageal reflux, occasional dysphagia, colorectal cancer screening. POSTOPERATIVE DIAGNOSES: Gastroesophageal reflux, occasional dysphagia, colorectal cancer screening, hiatal hernia, rule out Lehman esophagus, proximal gastritis, diverticulosis, and internal hemorrhoids. DESCRIPTION OF PROCEDURE: The patient was placed in the left lateral decubitus position. The Olympus videogastroscope was passed in the posterior oropharynx and upper esophagus under direct vision. The scope was passed slowly to the distal esophagus. The gastroesophageal junction appeared at 36 cm. There was some slight irregularity consistent with reflux, but no evidence of esophagitis nor definitive evidence of Lehman mucosa. The scope entered the stomach. There was a small hiatal hernia. The scope was advanced to pylorus and the duodenum was cannulated to the descending portion. The duodenum including the bulb appeared normal without mass or ulceration. The scope was withdrawn back to the stomach. The gastric antrum and body appeared normal with good peristalsis. The scope was retroflexed visualizing the proximal stomach carefully, which revealed some proximal gastritis with erythema and edema, but no evidence of any ulceration or mass. The scope was straightened. Biopsies were obtained of the proximal stomach. The scope was withdrawn back to the esophagus. Biopsies were obtained from the EG junction at 36 cm. Proximal to this, the esophageal mucosa appeared normal. The scope was withdrawn from the patient. He was turned around for the colonoscopy. The digital rectal exam revealed no abnormalities. The Olympus videopediatric colonoscope was entered into the rectum and advanced easily to the cecum. Once in the cecum, I did identify normal-appearing cecal pouch with appendiceal orifice and a normal-appearing ileocecal valve. The terminal ileum was cannulated and appeared normal. The scope was withdrawn back in the colon. The entire cecum and ileocecal valve appeared normal. The scope was slowly withdrawn assessing all mucosal surfaces carefully. Preparation was excellent. I did not visualize any sign of polyps, colitis, nor angiodysplasia. There was a mild amount of sigmoid diverticulosis. In the rectum, scope was retroflexed visualizing internal hemorrhoids, but no other pathology. The rectal mucosa appeared normal. The scope was straightened and withdrawn from the patient. He tolerated both procedures well and was returned to recovery area in stable condition. IMPRESSION: 1. Proximal gastritis. 2. Small hiatal hernia, gastroesophageal reflux, rule out Lehman esophagus. 3. Diverticulosis. 4. Internal hemorrhoids. PLAN: The results of the biopsies will be checked. I would recommend a repeat colonoscopy in 10 years. He will continue his omeprazole for his reflux. I suspect his occasional dysphagia is related to some esophageal spasm. He would otherwise see me on a p.r.n. basis. MD KODAK Marcos/ADELA / [phone]
== END 2024-02-10 09:12 | disposition home or self-care (01) ==
PROVIDERS: PCP Internal Medicine; Visit Provider Internal Medicine
PROC: (CPT 43239; principal; 2024-02-10 07:30)
PROC: 0DJD8ZZ Inspection of Lower Intestinal Tract, Via Natural or Artificial Opening Endoscopic (ICD-10-PCS; CPT 45378; 2024-02-10 07:30)
DX: K29.60 Other gastritis without bleeding (principal); K31.A0 Gastric intestinal metaplasia, unspecified; K44.9 Diaphragmatic hernia without obstruction or gangrene; K21.9 Gastro-esophageal reflux disease without esophagitis; R13.10 Dysphagia, unspecified; Z12.11 Encounter for screening for malignant neoplasm of colon; K57.30 Diverticulosis of large intestine without perforation or abscess without bleeding; K64.8 Other hemorrhoids; E78.00 Pure hypercholesterolemia, unspecified; Z79.82 Long term (current) use of aspirin; Z79.899 Other long term (current) drug therapy
CPT/HCPCS: 43239; G0121; 88305; 88313; 88342; J2704

== ENCOUNTER 2024-03-16 07:24 | Outpatient (REF) | payer MEDICARE, SELFPAY ==
[2024-03-16 08:34] LABS: Alanine Aminotransferase 16 U/L (0-40); Albumin Level 4.2 g/dL (3.5-5.0); Alkaline Phosphatase 82 U/L (39-117); Anion Gap 12 (12-20); Aspartate Amino Transferase 26 U/L (5-37); Bilirubin Total 0.7 mg/dL (0.0-1.0); Blood Urea Nitrogen 19 mg/dL (9-16); Calcium 9.4 mg/dL (8.4-10.2); Carbon Dioxide 26 mmol/L (22-29); Chloride 107 mmol/L (96-108); Cholesterol 180 mg/dL (<200); Estimated Glomerular Filt Rate > 60; Glucose Fasting 115 mg/dL (60-99); HDL Cholesterol 54 mg/dL (>40); LDL Cholesterol Calculated 105 mg/dL (<100); Sodium 141 mmol/L (135-145); Total Protein 7.2 g/dL (6.5-8.0); Triglycerides 109 mg/dL (<150)
== END 2024-03-16 07:25 | disposition home or self-care (01) ==
LOC: HO.LAB 07:24
PROVIDERS: PCP Internal Medicine; Visit Provider Internal Medicine
DX: E78.00 Pure hypercholesterolemia, unspecified (principal)
CPT/HCPCS: 36415; 80053; 80061

== ENCOUNTER 2024-03-25 08:49 | Outpatient (AMB) | payer OTHER, SELFPAY ==
[2024-03-25 08:50] VITALS: BP 130/82; PULSE 75; O2SAT 98; BMI 25.2
--- NOTE | 2024-03-25 08:50 | MHC.PC.OV ---
Vital Signs 03/25/24 08:50 Height 5 ft 7 in Weight 161 lb 0.4 oz BMI 25.2 BP 130/82 Blood Pressure Location Lt brachial Position Sitting Pulse 75 Pulse Source Pulse Oximeter Pulse Oximetry (%) 98 Oxygen Delivery Method Room Air Intake Visit Reasons: dyslipidemia, GERD, depression Intake Note: Patient is here to follow up Vascular Technician Required: No Allergies No Known Allergies [No Known Allergies*] Allergy (Verified 03/25/24 09:07) Medication List - Last Reconciled 03/25/24 by Chris Wilkerson MD cholecalciferol (vitamin D3) 25 mcg PO DAILY mecobalamin (vitamin B12) 1,000 mcg PO DAILY miscellaneous medical supply (Blood Pressure Cuff) As directed pantoprazole 40 mg PO DAILY PRN 90 days Tobacco use date assessed: 11/21/23 Fall risk assessment: No Falls in past year Last assessed Fall Risk: 03/25/24 Dental Screening Dental Screen Date: 11/21/23 HPI dyslipidemia, GERD, depression HPI Details Patient comes in today for his follow up visit States that he feels okay He denies any headaches or dizziness Denies any chest pains, no SOB No nausea/vomiting, no abdominal pain No change in bowel habits noted He continues to experience increased pain over his left heel area and would like to know how his heel/foot x-rays done a few months ago came out He had his follow up labs done last week - to discuss his results [facility] Medical History Insomnia Vitamin B12 deficiency Vitamin D deficiency Impaired fasting glucose Cervical disc disease GERD without esophagitis Pure hypercholesterolemia Surgical History History of esophagogastroduodenoscopy (EGD) History of colonoscopy (~10/09/13) History of surgery History of arthroscopic surgery of elbow History of hemorrhoidectomy Family History Father Suicide Mother Heart disease CVD (cardiovascular disease) Diabetes Emphysema lung Other Mental health problem Social History Household Members: Spouse Housing: House Alcohol intake: current Alcohol intake frequency: does not drink Patient Tobacco Use Status: Never used Tobacco e-Cigarette/Vaping Use: Never Used Second Hand Smoke Exposure: Yes service: No Current occupational status: employed and retired 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 1. Little interest or pleasure in doing things: not at all 2. Feeling down, depressed, or hopeless: nearly every day 3. Trouble falling or staying asleep, or sleeping too much: several days 4. Feeling tired or having little energy: not at all 5. Poor appetite or overeating: not at all 6. Feeling bad about yourself - or that you are a failure or have let yourself or your family down: not at all 7. Trouble concentrating on things, such as reading the newspaper or watching television: not at all 8. Moving or speaking so slowly that other people could have noticed. Or the opposite - being so fidgety or restless that you have been moving around a lot more than usual: not at all 9. Thoughts that you would be better off or of hurting yourself in some way: not at all Total score: 4 Depression Screening Interpretation: Positive Depression Screening Follow-up: Existing condition and Community Mental Health Worker F/U Depression Screening Done: Yes 83442 - PHQ-9 Billing: Yes Source: Developed by Drs. Everette Alejandre, Donna Lucas, Markell Waldron and colleagues, with an educational thanh from [employer]. Thrive Questionnaire Date Thrive assessed: 11/21/23 I am a: Patient What is your living situation today?: I have a steady place to live Within the past 12 months, did the food you bought not last and you didn't have the money to get more?: Never true Within the past 12 months, did you worry whether your food would run out before you got money to buy more?: Never true Do you have trouble paying for medicines?: No Do you have trouble getting transportation to medical appointments?: No Do you have trouble paying your heating and electricity bill?: No Do you have trouble taking care of your child, family member or friend?: No Do you have trouble with day-to-day activities such as bathing, preparing meals, shopping, managing finances, etc.?: No Are you currently unemployed and looking for a job?: No Are you interested in more education?: No THRIVE Score: 0 AUDIT C Alcohol Use Questionnaire (AUDIT-C) 1. How often do you have a drink containing alcohol?: Monthly or less 2. How many drinks containing alcohol do you have on a typical day when you are drinking?: 1 or 2 3. How often do you have six or more drinks on one occasion?: Never Total Score: 1 Score Reviewed/Action Taken: Yes ELIA-7 AMB Questionnaire ELIA-7 Date ELIA - 7 assessed: 11/21/23 Feeling nervous, anxious, or on edge: 0 = Not at all Not being able to stop or control worryin = Not at all Worrying too much about different things: 0 = Not at all Trouble relaxin = Not at all Being so restless that it is hard to sit still: 0 = Not at all Becoming easily annoyed or irritable: 0 = Not at all Feeling afraid as if something awful might happen: 0 = Not at all Total ELIA-7 score (0-4 normal; 5-9 mild; 10-14 moderate; 15-21 severe): 0 Source: Developed by Drs. Everette Alejandre, Donna Lucas, Markell Waldron and colleagues, with an educational thanh from [employer]. Review of Systems Const Denies chills, Denies fatigue, Denies fever(s) and Denies headache(s) ENT Denies dysphagia, Denies dizziness, Denies otalgia, Denies headache(s), Denies neck pain, Denies odynophagia and Denies sore throat Card Denies chest pain, Denies irregular heart rhythm, Denies palpitations and Denies dyspnea Resp Denies cough, Denies dyspnea and Denies wheezing GI Denies abdominal pain, Denies constipation, Denies dysphagia, Denies heartburn, Denies diarrhea, Denies nausea, Denies odynophagia and Denies vomiting Denies difficulty urinating, Denies dysuria and Denies urinary frequency Musc Details: left heel pain Denies back pain, Denies arthralgias and Denies neck pain Skin/Breast Denies rash Neuro Denies dizziness, Denies headache(s) and Denies paresthesias Psych Reports depression Endo Denies fatigue and Denies palpitations Aller/Immun Denies wheezing Physical exam (Primary Care) Vital Signs: Last Vital Signs Pulse 75 03/25/24 08:50 BP 130/82 03/25/24 08:50 Pulse Ox 98 03/25/24 08:50 Oxygen Delivery Method Room Air 03/25/24 08:50 BMI result Body Mass Index 25.2 Tobacco/Smoking Status: Tobacco use Status Tobacco use date assessed 11/21/23 03/25/24 08:51 Patient Tobacco Use Status Never used Tobacco 03/25/24 08:51 e-Cigarette/Vaping Use Never Used 03/25/24 08:51 PHQ-9: PHQ-9 Score PHQ-9: Total score 4 03/25/24 08:56 Depression Screening Interpretation: Positive Depression Screening Follow-up: Existing condition and Community Mental Health Worker F/U Thrive Assessment: Date of Thrive Assessment Date Thrive assessed 11/21/23 03/25/24 08:51 Const General: no acute distress and alert HENMT Ears: TM's normal bilaterally and EAC's normal Throat: Yes posterior oropharynx normal and Yes tonsils normal (no TP congestion) Neck Neck: Yes no lymphadenopathy and Yes supple Thyroid: Thyroid normal Resp Auscultation: clear to auscultation bilaterally, no rales and no wheezes Cardio Rate: regular rate Rhythm: regular rhythm Heart sounds: no murmurs GI Palpation (GI): Soft to palpation and nontender Auscultation: normal bowel sounds General: Yes no CVA tenderness Back/Spine/Pelvis Back: no CVA tenderness Cervical Spine: Cervical spine tenderness (mild) Thoracic/Lumbar Spine: No lumbar spinal tenderness Skin Rashes: no rashes Extrem General: Yes no clubbing, cyanosis or edema Left lower extremity: foot Details: tenderness Location: of the calcaneus Results Reviewed Results Reviewed: Laboratory Tests 03/16/24 07:39 Sodium 141 Potassium 4.0 Creatinine 0.91 Estimated GFR > 60 Fasting Glucose 115 H Calcium 9.4 AST 26 ALT 16 Triglycerides 109 Cholesterol 180 LDL Cholesterol, Calc 105 H HDL Cholesterol 54 Assessment and Plan Assessment & Plan (1) Pure hypercholesterolemia: Code(s): E78.00 - Pure hypercholesterolemia, unspecified Plan: Results of his labs done last week reviewed and discussed with patient - he is advised that his cholesterol levels, especially his total and LDL cholesterol, have improved significantly from previousl Reinforced low cholesterol diet; Patient still prefers not to take any Rx and will keep working on his diet and lifestyle changes and try to keep his cholesterol levels down Will recheck his labs and fasting lipids in 4 months for follow up (2) Impaired fasting glucose: Code(s): R73.01 - Impaired fasting glucose Plan: HgbA1c was normal at 5.3% and 5.5% when checked previously; FBS is again elevated at 115 mg/dl on his recent labs Reinforced low calorie diet/exercise as tolerated Will continue to monitor his blood sugar and will recheck his HgbA1c in 4 months for follow up (3) Elevated blood-pressure reading without diagnosis of hypertension: Code(s): R03.0 - Elevated blood-pressure reading, without diagnosis of hypertension Plan: His blood pressure today again appears normal / much better controlled, especially with his recent weight loss Reinforced low sodium diet He is reminded to continue monitoring his BP regularly - goal is systolic BP of 120 mm or less (4) GERD without esophagitis: Code(s): K21.9 - Gastro-esophageal reflux disease without esophagitis Plan: DIetary restrictions reinforced Continue Pantoprazole 40 mg QD He had EGD done again with his colonoscopy last month, which revealed (+) findings of proximal gastritis, small hiatal hernia and gastroesophageal reflux Biopsies done came back negative for dysplasia (5) Vitamin D deficiency: Code(s): E55.9 - Vitamin D deficiency, unspecified Plan: Continue Vitamin D3 1000 units QD (6) Vitamin B12 deficiency: Code(s): E53.8 - Deficiency of other specified B group vitamins Plan: Continue Vitamin B12 1000 mcg QD (7) Cervical disc disease: Code(s): M50.90 - Cervical disc disorder, unspecified, unspecified cervical region Plan: Cervical spine x-rays done a couple of years ago (2020) revealed (+) moderate degenerative changes throughout the cervical spine, with mild progression of changes from previous He is again advised to continue with the neck exercises that he was previously taught by PT; can call for referral again at any time if his neck pain gets worse (8) Calcaneal spur, left foot: Code(s): M77.32 - Calcaneal spur, left foot Plan: X-rays of the left heel done in October 2023 revealed (+) large calcaneal spur Will refer him to podiatry for further evaluation and management (9) Insomnia: Code(s): G47.00 - Insomnia, unspecified Qualifiers: Insomnia type: unspecified Qualified Code(s): G47.00 - Insomnia, unspecified Plan: Sleep hygiene reinforced Was started on a trial of Trazodone 50 mg Q HS PRN previously but patient states that he has been sleeping well lately, especially since he retired a few months ago; prefers not to take any Rx for sleep if he can avoid it (10) Depression: Code(s): F32.A - Depression, unspecified Qualifiers: Depression Type: unspecified Qualified Code(s): F32.A - Depression, unspecified Plan: He was previously referred for counseling / therapy and states that he went a few times and eventually stopped Feels that he is doing better and is in a much better place now mentally than he was a few months ago Plan Follow up in 4 months Orders: Orders Comprehensive [place]. Panel Fast 4 Months E78.00 - Pure hypercholesterolemia, unspecified Vitamin B12 and Folate 4 Months E53.8 - Deficiency of other specified B group vitamins Vitamin D 25-OH Total 4 Months E55.9 - Vitamin D deficiency, unspecified UA CC w/rflx Micro + Cult 4 Months R30.0 - Dysuria Complete Blood Count Auto Diff 4 Months D64.9 - Anemia, unspecified Lipid Panel 4 Months E78.00 - Pure hypercholesterolemia, unspecified Hemoglobin A1c 4 Months R73.01 - Impaired fasting glucose Referrals Podiatry Referral M77.32 - Calcaneal spur, left foot, M79.672 - Pain in left foot Coding Level of Care Code Est Pt Level 4 (60543) Complex EM visit Add On G2211 Diagnoses Pure hypercholesterolemia E78.00 Impaired fasting glucose R73.01 Elevated blood-pressure reading without diagnosis of hypertension R03.0 GERD without esophagitis K21.9 Vitamin D deficiency E55.9 Vitamin B12 deficiency E53.8 Cervical disc disease M50.90 Calcaneal spur, left foot M77.32 Insomnia, unspecified type G47.00 Insomnia type: unspecified Depression, unspecified depression type F32.A Depression Type: unspecified
== END 2024-03-25 09:22 | disposition home or self-care (01) ==
PROVIDERS: PCP Internal Medicine; Visit Provider Internal Medicine
DX: E78.00 Pure hypercholesterolemia, unspecified (principal); R73.01 Impaired fasting glucose; R03.0 Elevated blood-pressure reading, without diagnosis of hypertension; K21.9 Gastro-esophageal reflux disease without esophagitis; E55.9 Vitamin D deficiency, unspecified; E53.8 Deficiency of other specified B group vitamins; M50.90 Cervical disc disorder, unspecified, unspecified cervical region; M77.32 Calcaneal spur, left foot; G47.00 Insomnia, unspecified; F32.A Depression, unspecified
CPT/HCPCS: 99214; G2211

== ENCOUNTER 2024-05-13 12:58 | Outpatient (AMB) | payer MEDICARE, SELFPAY ==
[2024-05-13 13:14] VITALS: BP 130/76; PULSE 80; O2SAT 97; BMI 24.6
--- NOTE | 2024-05-13 13:14 | A.OFFPC_ITS ---
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 Required: No Accompanied by: Self / Same As Patient Allergies No Known Allergies [No Known Allergies*] Allergy (Verified 05/17/24 11:01) Medication List - Last Reconciled 05/17/24 by Chris Wilkerson MD cholecalciferol (vitamin D3) 25 mcg PO DAILY meclizine 25 mg PO BID PRN mecobalamin (vitamin B12) 1,000 mcg PO DAILY miscellaneous medical supply (Blood Pressure Cuff) As directed pantoprazole 40 mg PO DAILY PRN 90 days Tobacco use date assessed: 05/13/24 Fall risk assessment: No Falls in past year Last assessed Fall Risk: 05/13/24 Dental Screening Dental Screen Date: 05/13/24 Did you have a dental visit in the last 12 months?: Yes Did you have a dental problem in the last 6 months where you did not have access to dental care?: No Was dental information given to patient?: Patient has dentist HPI vertigo/weight loss HPI Details Patient comes in today for further evaluation of some concerns / problems that he's had recently States that he has been experiencing on and off dizziness over the past few weeks, which he is attributing to vertigo States that it feels like his surroundings are spinning around him when his dizziness occur Notes that these tend to last for a few minutes before gradually subsiding on their own He has also noticed that he has lost over 10 pounds in the past 3 months Feels that he is eating okay and is not sure why he is losing that much weight lately He denies any headaches Denies any chest pains, no SOB No nausea/vomiting, no abdominal pain No change in bowel habits noted [facility] Medical History Insomnia Vitamin B12 deficiency Vitamin D deficiency Impaired fasting glucose Cervical disc disease GERD without esophagitis Pure hypercholesterolemia Surgical History History of esophagogastroduodenoscopy (EGD) History of colonoscopy (~10/09/13) History of surgery History of arthroscopic surgery of elbow History of hemorrhoidectomy Family History Father Suicide Mother Heart disease CVD (cardiovascular disease) Diabetes Emphysema lung Other Mental health problem Social History Household Members: Spouse Housing: House Alcohol intake: current Alcohol intake frequency: does not drink Patient Tobacco Use Status: Never used Tobacco e-Cigarette/Vaping Use: Never Used Second Hand Smoke Exposure: Yes service: No Current occupational status: employed and retired 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 1. Little interest or pleasure in doing things: not at all 2. Feeling down, depressed, or hopeless: nearly every day 3. Trouble falling or staying asleep, or sleeping too much: several days 4. Feeling tired or having little energy: not at all 5. Poor appetite or overeating: not at all 6. Feeling bad about yourself - or that you are a failure or have let yourself or your family down: not at all 7. Trouble concentrating on things, such as reading the newspaper or watching television: not at all 8. Moving or speaking so slowly that other people could have noticed. Or the opposite - being so fidgety or restless that you have been moving around a lot more than usual: not at all 9. Thoughts that you would be better off or of hurting yourself in some way: not at all Total score: 4 Depression Screening Interpretation: Positive Depression Screening Follow-up: Existing condition and Community Mental Health Worker F/U Depression Screening Done: Yes 11092 - PHQ-9 Billing: Yes Source: Developed by Drs. Everette Alejandre, Donna Lucas, Markell Waldron and colleagues, with an educational thanh from [employer]. Thrive Questionnaire Date Thrive assessed: 05/13/24 I am a: Patient What is your living situation today?: I have a steady place to live Within the past 12 months, did the food you bought not last and you didn't have the money to get more?: Never true Within the past 12 months, did you worry whether your food would run out before you got money to buy more?: Never true Do you have trouble paying for medicines?: No Do you have trouble getting transportation to medical appointments?: No Do you have trouble paying your heating and electricity bill?: No Do you have trouble taking care of your child, family member or friend?: No Do you have trouble with day-to-day activities such as bathing, preparing meals, shopping, managing finances, etc.?: No Are you currently unemployed and looking for a job?: No Are you interested in more education?: No Please select the resources that you would like help with: None Currently or been in a relationship where the following occur: No concerns reported THRIVE Score: 0 AUDIT C Alcohol Use Questionnaire (AUDIT-C) 1. How often do you have a drink containing alcohol?: Monthly or less 2. How many drinks containing alcohol do you have on a typical day when you are drinking?: 1 or 2 3. How often do you have six or more drinks on one occasion?: Never Total Score: 1 Score Reviewed/Action Taken: Yes ELIA-7 AMB Questionnaire ELIA-7 Date ELIA - 7 assessed: 05/13/24 Feeling nervous, anxious, or on edge: 0 = Not at all Not being able to stop or control worryin = Not at all Worrying too much about different things: 0 = Not at all Trouble relaxin = Not at all Being so restless that it is hard to sit still: 0 = Not at all Becoming easily annoyed or irritable: 0 = Not at all Feeling afraid as if something awful might happen: 0 = Not at all Total ELIA-7 score (0-4 normal; 5-9 mild; 10-14 moderate; 15-21 severe): 0 Source: Developed by Drs. Everette Alejandre, Donna Lucas, Markell Waldron and colleagues, with an educational thanh from [employer]. Review of Systems Const Denies chills, Denies fatigue, Denies fever(s), Denies headache(s) and Reports weight loss ENT Denies dysphagia, Reports dizziness (on and off - see HPI), Denies otalgia, Denies headache(s), Denies neck pain, Denies odynophagia and Denies sore throat Card Denies chest pain, Denies irregular heart rhythm, Denies palpitations and Denies dyspnea Resp Denies cough, Denies dyspnea and Denies wheezing GI Denies abdominal pain, Denies constipation, Denies dysphagia, Denies heartburn, Denies diarrhea, Denies nausea, Denies odynophagia and Denies vomiting Denies difficulty urinating, Denies dysuria and Denies urinary frequency Musc Details: left heel pain Denies back pain, Denies arthralgias and Denies neck pain Skin/Breast Denies rash Neuro Reports dizziness (on and off - see HPI), Denies headache(s) and Denies paresthesias Psych Reports depression Endo Denies fatigue and Denies palpitations Aller/Immun Denies wheezing Physical exam (Primary Care) Vital Signs: Last Vital Signs Pulse 80 05/13/24 13:14 BP 130/76 05/13/24 13:14 Pulse Ox 97 05/13/24 13:14 Oxygen Delivery Method Room Air 05/13/24 13:14 BMI result Body Mass Index 24.6 Tobacco/Smoking Status: Tobacco use Status Tobacco use date assessed 05/13/24 05/13/24 13:17 Patient Tobacco Use Status Never used Tobacco 05/13/24 13:17 e-Cigarette/Vaping Use Never Used 05/13/24 13:17 PHQ-9: PHQ-9 Score PHQ-9: Total score 4 05/13/24 13:39 Depression Screening Interpretation: Positive Depression Screening Follow-up: Existing condition and Community Mental Health Worker F/U Thrive Assessment: Date of Thrive Assessment Date Thrive assessed 05/13/24 05/13/24 13:17 Currently or been in a relationship where the following occur: No concerns reported Const General: no acute distress and alert HENMT Ears: TM's normal bilaterally and EAC's normal Throat: Yes posterior oropharynx normal and Yes tonsils normal (no TP congestion) Neck Neck: Yes no lymphadenopathy and Yes supple Thyroid: Thyroid normal Resp Auscultation: clear to auscultation bilaterally, no rales and no wheezes Cardio Rate: regular rate Rhythm: regular rhythm Heart sounds: no murmurs GI Palpation (GI): Soft to palpation and nontender Auscultation: normal bowel sounds General: Yes no CVA tenderness Back/Spine/Pelvis Back: no CVA tenderness Cervical Spine: Cervical spine tenderness (mild) Thoracic/Lumbar Spine: No lumbar spinal tenderness Skin Rashes: no rashes Extrem General: Yes no clubbing, cyanosis or edema Assessment and Plan Assessment & Plan (1) Dizziness: Code(s): R42 - Dizziness and giddiness Plan: Have discussed with patient that his recent bouts of dizziness may very well be paroxysmal vertigo and if they keep recurring, a referral to physical therapy for canalith positioning may be helpful in eliminating these episodes He can continue taking Meclizine 25 mg TID PRN for now Is advised to call for referral to PT if his symptoms continue to recur over the next couple of weeks or so (2) Weight loss, unintentional: Code(s): R63.4 - Abnormal weight loss Plan: Unclear etiology at present regarding his weight loss as he does not appear to have had any significant changes to his appetite or dietary choices Patient states that he has not really switched to any particular diet recently and is still eating mostly what he used to eat over the years except that he has been making healthier choices when it comes to food selection Will send him for some labs KRISTEN for further evaluation Will also send him for chest x-rays for further evaluation Plan Follow up as scheduled in July 2024 Orders: Orders TSH reflex Free T4 05/13/24 E78.00 - Pure hypercholesterolemia, unspecified, R63.4 - Abnormal weight loss Vitamin D 25-OH Total 05/13/24 E55.9 - Vitamin D deficiency, unspecified, R63.4 - Abnormal weight loss Erythrocyte Sedimentation Rate 05/13/24 M79.7 - Fibromyalgia, R63.4 - Abnormal weight loss Complete Blood Count Auto Diff 05/13/24 D64.9 - Anemia, unspecified, R63.4 - Abnormal weight loss Comprehensive Met. Panel 05/13/24 R63.4 - Abnormal weight loss UA CC w/rflx Micro + Cult 05/13/24 R30.0 - Dysuria, R63.4 - Abnormal weight loss Vitamin B12 and Folate 05/13/24 E53.8 - Deficiency of other specified B group vitamins, R63.4 - Abnormal weight loss C Reactive Protein 05/13/24 R63.4 - Abnormal weight loss Testosterone, Free/Total 05/13/24 R63.4 - Abnormal weight loss, R79.89 - Other specified abnormal findings of blood chemistry XR chest 2V 05/13/24 R06.00 - Dyspnea, unspecified, R63.4 - Abnormal weight loss Coding Level of Care Code Est Pt Level 4 (95332) Diagnoses Dizziness R42 Weight loss, unintentional R63.4
== END 2024-05-13 15:37 | disposition home or self-care (01) ==
PROVIDERS: PCP Internal Medicine; Visit Provider Internal Medicine
DX: R42 Dizziness and giddiness (principal); R63.4 Abnormal weight loss

== ENCOUNTER 2024-05-13 12:58 | Outpatient (REF) | payer MEDICARE, SELFPAY ==
--- NOTE | ~2024-05-13 | XR_ITS ---
EXAMINATION: XR CHEST CLINICAL INFORMATION: R63.4 - Abnormal weight loss COMPARISON: None available. TECHNIQUE: 2 views of the chest were obtained. FINDINGS: Cardiac, hilar, and mediastinal contours are normal. The lungs are clear bilaterally. There is no effusion, consolidation, or pneumothorax. No suspicious focal bony abnormalities. There are bulky bridging ventral disc osteophytes throughout the mid thoracic spine, with appearance suggestive of DISH. No soft tissue abnormalities. XR/XR chest 2V IMPRESSION: No active pulmonary disease. Electronically signed by: Baltazar Soliman MD 07/22/2024 04:06 PM [facility]
[2024-05-13 14:13] LABS: MANUAL DIFF FLAG NO
[2024-05-13 15:53] LABS: Eosinophils Absolute Auto 0.2 X10*3/uL (0.0-0.4); Eosinophils Percent Auto 3.3 % (0-4); Hematocrit 42.8 % (42.0-52.0); Hemoglobin 13.7 g/dl (14.0-18.0); Imm Gran Abs Auto 0.01 X10*3/uL (0.00-0.03); Imm Gran Pct Auto 0.2 % (0.0-0.4); Lymphocytes Absolute Auto 1.8 X10*3/uL (1.2-4.9); Lymphocytes Percent Auto 39.9 % (20-40); Mean Corpuscular Hemoglobin 28.8 pg (27.0-33.0); Mean Corpuscular Volume 90.1 fL (80.0-98.0); Mean Platelet Volume 9.4 fL (9.4-12.4); Monocytes Absolute Auto 0.3 X10*3/uL (0.1-1.2); Monocytes Percent Auto 6.9 % (2-11); Neutrophils Absolute Auto 2.2 x10*3/uL (2.0-8.3); Neutrophils Percent Auto 49.7 % (45-73); Platelet Count 196 X10*3/uL (160-400); Red Blood Count 4.75 X10*6/uL (4.60-5.80); Red Cell Distribution Width 13.9 % (11.0-16.0); White Blood Count 4.5 X10*3/uL (4.8-10.8)
[2024-05-13 16:02] LABS: Appearance Urine Clear; Color Urine Yellow; Glucose Urine UA Negative (Negative); Leukocyte Esterase Urine Negative (Negative); Nitrite Urine Negative (Negative); Urine Blood Negative (Negative); Urine Ketones Negative (Negative); Urine Protein Negative (Neg-Trace)
[2024-05-13 16:17] LABS: Alanine Aminotransferase 13 U/L (0-40); Albumin Level 4.3 g/dL (3.5-5.0); Alkaline Phosphatase 78 U/L (39-117); Anion Gap 12 (12-20); Aspartate Amino Transferase 19 U/L (5-37); Bilirubin Total 0.6 mg/dL (0.0-1.0); Blood Urea Nitrogen 17 mg/dL (9-16); C Reactive Protein 0.36 mg/dL (< or = 0.50); Calcium 9.2 mg/dL (8.4-10.2); Carbon Dioxide 26 mmol/L (22-29); Chloride 106 mmol/L (96-108); Estimated Glomerular Filt Rate > 60; Glucose Random 96 mg/dL (60-115); Potassium 3.9 mmol/L (3.3-5.1); Sodium 140 mmol/L (135-145); Total Protein 7.4 g/dL (6.5-8.0)
[2024-05-13 16:30] LABS: Erythrocyte Sedimentation Rate 7 MM/HR (0-15)
[2024-05-13 16:38] LABS: TSH reflex Free T4 1.21 uIU/mL (0.32-4.0); Vitamin D 25-OH Total 50.5 ng/mL (>30)
[2024-05-13 17:02] LABS: Folate 15.4 ng/mL (> or = 4.0); Vitamin B12 363 pg/mL (200-900)
[2024-05-19 01:58] LABS: Testosterone, Free 51.1 pg/mL (35.0-155.0); Testosterone, Total 444 ng/dL (250-1100)
== END 2024-05-13 12:59 | disposition home or self-care (01) ==
LOC: HO.XRAY 12:58
PROVIDERS: PCP Internal Medicine; Visit Provider Internal Medicine
DX: E78.00 Pure hypercholesterolemia, unspecified (principal); R63.4 Abnormal weight loss; E55.9 Vitamin D deficiency, unspecified; R42 Dizziness and giddiness; M79.7 Fibromyalgia; D64.9 Anemia, unspecified; R30.0 Dysuria; E53.8 Deficiency of other specified B group vitamins; R06.00 Dyspnea, unspecified
CPT/HCPCS: 36415; 71046; 80053; 81003; 82306; 82607; 82746; 84402; 84403; 84443; 85025; 85652; 86140; 99212

== ENCOUNTER → 2024-05-13 14:14 | Outpatient (BNV) | payer MEDICARE, SELFPAY | PROVIDERS: PCP Internal Medicine; Visit Provider Radiology Diagnostic Radiology | DX: R63.4 Abnormal weight loss (principal) | CPT/HCPCS: 71046 ==

== ENCOUNTER 2024-08-03 07:26 | Outpatient (REF) | payer MEDICARE, SELFPAY ==
[2024-08-03 07:41] LABS: MANUAL DIFF FLAG NO
[2024-08-03 07:53] LABS: Basophils Percent Auto 0.2 % (0-2); Eosinophils Absolute Auto 0.1 X10*3/uL (0.0-0.4); Eosinophils Percent Auto 3.5 % (0-4); Hematocrit 44.3 % (42.0-52.0); Hemoglobin 14.3 g/dl (14.0-18.0); Lymphocytes Absolute Auto 1.8 X10*3/uL (1.2-4.9); Lymphocytes Percent Auto 43.8 % (20-40); Mean Corpuscular HGB Conc 32.3 g/dl (31.0-36.0); Mean Corpuscular Hemoglobin 29.1 pg (27.0-33.0); Mean Corpuscular Volume 90.2 fL (80.0-98.0); Mean Platelet Volume 9.4 fL (9.4-12.4); Monocytes Absolute Auto 0.3 X10*3/uL (0.1-1.2); Monocytes Percent Auto 7.7 % (2-11); Neutrophils Absolute Auto 1.8 x10*3/uL (2.0-8.3); Neutrophils Percent Auto 44.8 % (45-73); Platelet Count 159 X10*3/uL (160-400); Red Blood Count 4.91 X10*6/uL (4.60-5.80); Red Cell Distribution Width 13.2 % (11.0-16.0)
[2024-08-03 08:06] LABS: Appearance Urine Clear; Color Urine Yellow; Glucose Urine UA Negative (Negative); Leukocyte Esterase Urine Negative (Negative); Nitrite Urine Negative (Negative); Urine Blood Negative (Negative); Urine Ketones Negative (Negative); Urine Protein Negative (Neg-Trace)
[2024-08-03 08:07] LABS: Estimated Average Glucose 114 mg/dL; Hemoglobin A1C 134.4564 umol/L; Hemoglobin A1c % 5.6 % (<6.0); Total Hemoglobin (HGBA1C) 3607.2764 umol/L
[2024-08-03 08:17] LABS: Alanine Aminotransferase 19 U/L (0-40); Albumin Level 4.2 g/dL (3.5-5.0); Alkaline Phosphatase 79 U/L (39-117); Anion Gap 11 (12-20); Aspartate Amino Transferase 21 U/L (5-37); Bilirubin Total 0.5 mg/dL (0.0-1.0); Blood Urea Nitrogen 20 mg/dL (9-16); Calcium 9.3 mg/dL (8.4-10.2); Carbon Dioxide 27 mmol/L (22-29); Chloride 106 mmol/L (96-108); Cholesterol 207 mg/dL (<200); Estimated Glomerular Filt Rate > 60; Glucose Fasting 114 mg/dL (60-99); HDL Cholesterol 51 mg/dL (>40); LDL Cholesterol Calculated 137 mg/dL (<100); Potassium 4.4 mmol/L (3.3-5.1); Sodium 140 mmol/L (135-145); Total Protein 7.3 g/dL (6.5-8.0); Triglycerides 95 mg/dL (<150)
[2024-08-03 08:43] LABS: Folate 12.8 ng/mL (> or = 4.0); Vitamin B12 407 pg/mL (200-900)
[2024-08-03 08:47] LABS: Vitamin D 25-OH Total 45.6 ng/mL (>30)
== END 2024-08-03 07:27 | disposition home or self-care (01) ==
LOC: HO.LAB 07:26
PROVIDERS: PCP Internal Medicine; Visit Provider Internal Medicine
DX: D64.9 Anemia, unspecified (principal); E53.8 Deficiency of other specified B group vitamins; E55.9 Vitamin D deficiency, unspecified; R30.0 Dysuria; R73.01 Impaired fasting glucose; E78.00 Pure hypercholesterolemia, unspecified
CPT/HCPCS: 36415; 80053; 80061; 81003; 82306; 82607; 82746; 83036; 85025

== ENCOUNTER 2024-08-10 08:49 | Outpatient (AMB) | payer MEDICARE, SELFPAY ==
[2024-08-10 08:50] VITALS: BP 126/88; PULSE 83; O2SAT 98; BMI 25.4
--- NOTE | 2024-08-10 08:50 | MHC.PC.OV ---
Vital Signs 08/10/24 08:50 Height 5 ft 7 in Weight 162 lb 4 oz BMI 25.4 BP 126/88 Blood Pressure Location Lt brachial Position Sitting Pulse 83 Pulse Source Pulse Oximeter Pulse Oximetry (%) 98 Oxygen Delivery Method Room Air Intake Visit Reasons: 4 month follow up Collections Manager Required: No Accompanied by: Self / Same As Patient Allergies No Known Allergies [No Known Allergies*] Allergy (Verified 08/10/24 09:15) Medication List - Last Reconciled 08/10/24 by RAMON Aponte cholecalciferol (vitamin D3) 25 mcg PO DAILY meclizine 25 mg PO BID PRN mecobalamin (vitamin B12) 1,000 mcg PO DAILY miscellaneous medical supply (Blood Pressure Cuff) As directed pantoprazole 40 mg PO DAILY PRN 90 days Tobacco use date assessed: 08/10/24 Fall risk assessment: No Falls in past year Last assessed Fall Risk: 08/10/24 Dental Screening Dental Screen Date: 08/10/24 Did you have a dental visit in the last 12 months?: Yes Did you have a dental problem in the last 6 months where you did not have access to dental care?: No Was dental information given to patient?: Patient has dentist HPI 4 month follow up HPI Details The patient is 68 year old male with past medical history of left heel pain, dizziness, elevated blood pressure reading without diagnosis of hypertension, benign positional vertigo, GERD without esophagitis, hypercholesterolemia. Patient is present today for 4 month follow-up On prior visit the patient was concerned of unintentional weight loss. Per patient he was concerned because he was not feeling great at that time. The patient stated that he has been trying to make better meals choices, due to struggle with his cholesterol. Patient reports that on his prior visit he was having a lot of stress because of an adult son living with him that is struggling with substance. Per patient is feeling much better today. He denies feeling more tired than usual. However the patient stated that he has been less active. The patient reported that he has a bone spur in the left heel. For this he has been working with PT, this has been going well the pain is minimal. The patient reports that he only feels the pain when he walks for long distance. The patient has been going to PT twice a week. However the patient stated that he has 2 sessions left until is new insurance runs out. The patient stated that his new insurance is going to be kicking in in August. At that time he will see if he still needs the therapy and read book for physical therapy. The patient also reported that he has been dealing with pain in the back of his neck. Per patient the back of his neck has been x-rayed and showed that he has some arthritis. However, he only feel the pain when he moves his neck from [id number]. Patient report that it is a 1 to 2/10 at this point. It is usually worse when he moves his head to the right side. Flexion and extension of the neck is not affected. The patient reports that he drinks sometime on the weekends. He also stated that he drinks a 6 pack of beer, mostly in his summer time. The patient report that his heartburn has been well controlled. Who reports that he stopped eating after 18:00. He also reports that he know that the alcohol intake is bad for his heartburn. The patient denies dizziness at this point. Per patient, he used the meclizine for a short period. He has not had to use it for a while. He also denies dizziness, denies shortness of breath, denies heart palpitation, denies chest pain, denies stomach pain or any change in his bowel movements. [facility] Medical History Insomnia Vitamin B12 deficiency Vitamin D deficiency Impaired fasting glucose Cervical disc disease GERD without esophagitis Pure hypercholesterolemia Surgical History History of esophagogastroduodenoscopy (EGD) History of colonoscopy (~10/09/13) History of surgery History of arthroscopic surgery of elbow History of hemorrhoidectomy Family History Father Suicide Mother Heart disease CVD (cardiovascular disease) Diabetes Emphysema lung Other Mental health problem Social History Household Members: Spouse Housing: House Alcohol intake: current Alcohol intake frequency: does not drink Patient Tobacco Use Status: Never used Tobacco e-Cigarette/Vaping Use: Never Used Second Hand Smoke Exposure: Yes service: No Current occupational status: employed and retired 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 1. Little interest or pleasure in doing things: not at all 2. Feeling down, depressed, or hopeless: nearly every day 3. Trouble falling or staying asleep, or sleeping too much: several days 4. Feeling tired or having little energy: not at all 5. Poor appetite or overeating: not at all 6. Feeling bad about yourself - or that you are a failure or have let yourself or your family down: not at all 7. Trouble concentrating on things, such as reading the newspaper or watching television: not at all 8. Moving or speaking so slowly that other people could have noticed. Or the opposite - being so fidgety or restless that you have been moving around a lot more than usual: not at all 9. Thoughts that you would be better off or of hurting yourself in some way: not at all Total score: 4 Depression Screening Interpretation: Positive Depression Screening Follow-up: Existing condition and Community Mental Health Worker F/U Depression Screening Done: Yes 23104 - PHQ-9 Billing: Yes Source: Developed by Drs. Everette Alejandre, Donna Lucas, Markell Waldron and colleagues, with an educational thanh from [employer]. Thrive Questionnaire Date Thrive assessed: 08/10/24 I am a: Patient What is your living situation today?: I have a steady place to live Within the past 12 months, did the food you bought not last and you didn't have the money to get more?: Never true Within the past 12 months, did you worry whether your food would run out before you got money to buy more?: Never true Do you have trouble paying for medicines?: No Do you have trouble getting transportation to medical appointments?: No Do you have trouble paying your heating and electricity bill?: No Do you have trouble taking care of your child, family member or friend?: No Do you have trouble with day-to-day activities such as bathing, preparing meals, shopping, managing finances, etc.?: No Are you currently unemployed and looking for a job?: No Are you interested in more education?: No Please select the resources that you would like help with: None Currently or been in a relationship where the following occur: No concerns reported THRIVE Score: 0 AUDIT C Alcohol Use Questionnaire (AUDIT-C) 1. How often do you have a drink containing alcohol?: Monthly or less 2. How many drinks containing alcohol do you have on a typical day when you are drinking?: 1 or 2 3. How often do you have six or more drinks on one occasion?: Never Total Score: 1 Score Reviewed/Action Taken: Yes ELIA-7 AMB Questionnaire ELIA-7 Date ELIA - 7 assessed: 08/10/24 Feeling nervous, anxious, or on edge: 0 = Not at all Not being able to stop or control worryin = Not at all Worrying too much about different things: 0 = Not at all Trouble relaxin = Not at all Being so restless that it is hard to sit still: 0 = Not at all Becoming easily annoyed or irritable: 0 = Not at all Feeling afraid as if something awful might happen: 0 = Not at all Total ELIA-7 score (0-4 normal; 5-9 mild; 10-14 moderate; 15-21 severe): 0 Source: Developed by Drs. Everette Alejandre, Donna Lucas, Markell Waldron and colleagues, with an educational thanh from [employer]. ELIA-7 Assessment Billing ELIA-7 Assessment Tool: ELIA-7 Assessment 27326 Review of Systems Const Details: Const Denies chills, Denies fatigue, Denies fever(s), Denies headache(s) and Denies weakness ENT Denies dizziness and Denies headache(s) Card Denies chest pain, Denies lightheadedness, Denies dyspnea and Denies other (Palpitations) Resp Denies cough, Denies dyspnea, Denies wheezing and Denies other ( shortness of breath) GI Denies abdominal pain, Denies melena, Denies hematochezia, Denies change in bowel habits, Denies dyspepsia and Denies nausea Denies hematuria and Denies dysuria Musc Denies abnormal gait, Denies myalgias, Denies arthralgias, Denies numbness and Denies tingling, + left heel pain, +posterior neck pain with stiffness in bilateral shoulders Skin/Breast Denies rash, Denies unusual bruising and Denies wounds Neuro Denies abnormal gait, Denies dizziness, Denies headache(s), Denies memory loss, Denies numbness, Denies Sensory deficit (Neuro), Denies tingling and Denies weakness Psych Denies anxiety, Denies depression, Denies memory loss Endo Denies cold intolerance, Denies fatigue, Denies heat intolerance, Denies polydipsia and Denies polyuria Aller/Immun Denies wheezing Physical exam (Primary Care) Vital Signs: Last Vital Signs Pulse 83 08/10/24 08:50 BP 126/88 08/10/24 08:50 Pulse Ox 98 08/10/24 08:50 Oxygen Delivery Method Room Air 08/10/24 08:50 BMI result Body Mass Index 25.4 Tobacco/Smoking Status: Tobacco use Status Tobacco use date assessed 08/10/24 08/10/24 08:52 Patient Tobacco Use Status Never used Tobacco 08/10/24 08:52 e-Cigarette/Vaping Use Never Used 08/10/24 08:52 PHQ-9: PHQ-9 Score PHQ-9: Total score 4 08/10/24 09:32 Depression Screening Interpretation: Positive Depression Screening Follow-up: Existing condition and Community Mental Health Worker F/U Thrive Assessment: Date of Thrive Assessment Date Thrive assessed 08/10/24 08/10/24 08:52 Currently or been in a relationship where the following occur: No concerns reported Const Other: General: no acute distress and well developed Nutritional Appearance: well nourished Orientation/consciousness: patient oriented x3 HENMT Head: Yes normocephalic and Yes atraumatic Eyes General: appearance normal, both eyes and all related structures Pupils: Equal, round and reactive pupils present EOM: EOMs intact bilaterally Resp Effort & Inspection: normal respiratory effort Auscultation: clear to auscultation bilaterally Cardio Rate: regular rate Rhythm: regular rhythm Heart sounds: S1 normal heart sound present, S2 normal heart sound present, no gallops, no murmurs and no rubs GI Palpation (GI): No Abdominal aortic bruit present, Soft to palpation, nontender, No hepatosplenomegaly present and No Rebound tenderness present Auscultation: normal bowel sounds General: Yes no CVA tenderness Back/Spine/Pelvis Back: no CVA tenderness Cervical Spine: cervical ROM normal and + Cervical spine pain with left and right lateral movements. Thoracic/Lumbar Spine: thoraco-lumbar ROM normal, No pain with thoraco-lumbar ROM, No thoracic spinal tenderness and No lumbar spinal tenderness Extrem General: Yes normal to inspection, No edema and No calf tenderness Skin General: warm and dry. Normal skin color. Normal skin turgor Lesions: no lesions Rashes: no rashes Trauma: no lacerations or abrasions Wounds: no wounds Nails: normal Neuro General: patient oriented x3, gait normal and no focal neuro deficit Cranial nerves: Yes Equal, round and reactive pupils present Cognition (Neuro): normal cognition Gait exam (Neuro): Normal gait present Sensory Exam: No Sensory deficit (Neuro) Psych Appearance: grossly normal Affect: normal affect Attitude: cooperative Thought process: Normal thought process present Results Reviewed Results Reviewed: Laboratory Tests 08/03/24 08/03/24 07:39 07:40 WBC 4.0 L RBC 4.91 Hgb 14.3 Hct 44.3 MCV 90.2 MCH 29.1 RDW 13.2 Plt Count 159 L Neut % (Auto) 44.8 L Lymph % (Auto) 43.8 H Sodium 140 Potassium 4.4 Chloride 106 Carbon Dioxide 27 BUN 20 H Creatinine 1.00 Estimated GFR > 60 Fasting Glucose 114 H Hemoglobin A1c % 5.6 AST 21 ALT 19 Triglycerides 95 Cholesterol 207 H LDL Cholesterol, Calc 137 H HDL Cholesterol 51 Vitamin B12 407 25-OH Vitamin D Total 45.6 Folate 12.8 Urine Color Yellow Urine Appearance Clear Urine Blood Negative Urine Nitrite Negative Ur Leukocyte Esterase Negative Coding Level of Care Code New Pt Level 4 (70785) Diagnoses Benign paroxysmal positional vertigo, unspecified laterality H81.10 Laterality: unspecified laterality Elevated blood-pressure reading without diagnosis of hypertension R03.0 Impaired fasting glucose R73.01 Pure hypercholesterolemia E78.00 GERD without esophagitis K21.9 Vitamin B12 deficiency E53.8 Vitamin D deficiency E55.9 Additional Codes PHQ-9 - 64310 - PHQ-9 Billing: Yes ([id number]) ELIA-7 Assessment Billing - ELIA-7 Assessment Tool: ELIA-7 Assessment 68278 ([id number]) Assessment & Plan Assessment & Plan (1) Benign positional vertigo: Code(s): H81.10 - Benign paroxysmal vertigo, unspecified ear Category: Medical Qualifiers: Laterality: unspecified laterality Qualified Code(s): H81.10 - Benign paroxysmal vertigo, unspecified ear Plan: Meclizine 25 mg prn ongoing reports that he has not had use medication for awhile now reports that the sensation is minimal and infrequent reinforced to follow if if sensation increased, would consider PT to remove canalith Patient has a 4 month follow-up appointment, patient to follow-up sooner for any concerns. (2) Elevated blood-pressure reading without diagnosis of hypertension: Code(s): R03.0 - Elevated blood-pressure reading, without diagnosis of hypertension Category: Medical Plan: Patient blood pressure has been within normal limits on last 2 visits. Encouraged dash diet Encouraged 6-8 glasses of water per day. Encouraged physical activity as tolerated. (3) Impaired fasting glucose: Code(s): R73.01 - Impaired fasting glucose Category: Medical Plan: Reinforced today low in sugar, carbohydrates. Encouraged to exercise for at least 30 minutes a day/5 days a week Labs ordered, patient to follow-up in 4 months. (4) Pure hypercholesterolemia: Code(s): E78.00 - Pure hypercholesterolemia, unspecified Category: Medical Plan: Diet /exercise discussed in detail Encouraged to exercise for at least 30 minutes a day/ 5 days a week. Healthy eating discussed. Encouraged to eat fruits/vegetables, protein-fish/baked chicken, and to avoid salty fried foods sweets, caffeine and carbohydrates. Encouraged to increase water intake 6-8 glasses a day. (5) GERD without esophagitis: Code(s): K21.9 - Gastro-esophageal reflux disease without esophagitis Category: Medical Plan: Patient continues on pantoprazole 40 mg daily. Reinforced the negative impact of alcohol, fatty and greasy/ascitic foods. Patient reports that he has been making attempts to curve is eating habits. Reports that he had eaten at 18:00. Reports that his heartburn has been well controlled. We will continue the same treatment. We will reassess in 4 months. Patient encouraged to follow up sooner for any concerns or changes. (6) Vitamin B12 deficiency: Code(s): E53.8 - Deficiency of other specified B group vitamins Category: Medical Plan: Vitamin B12 levels within normal range. Continue on vitamin B12 1000mcg. Will recheck lab for next appt. (7) Vitamin D deficiency: Code(s): E55.9 - Vitamin D deficiency, unspecified Category: Medical Plan: Vitamin-D levels within normal range. Contiues on cholecalciferiol 25 mcg. will recheck lab for next appt. Orders: Orders Complete Blood Count Auto Diff 4 Months H81.10 - Benign paroxysmal vertigo, unspecified ear, K21.9 - Gastro-esophageal reflux disease without esophagitis, Z00.00 - Encounter for general adult medical examination without abnormal findings Comprehensive [place]. Panel Fast 4 Months E78.00 - Pure hypercholesterolemia, unspecified, Z00.00 - Encounter for general adult medical examination without abnormal findings Lipid Panel 4 Months E78.00 - Pure hypercholesterolemia, unspecified Glucose Fasting 4 Months R73.01 - Impaired fasting glucose Vitamin D 25-OH Total 4 Months E55.9 - Vitamin D deficiency, unspecified, R63.4 - Abnormal weight loss, Z00.00 - Encounter for general adult medical examination without abnormal findings Hemoglobin A1c 4 Months R73.01 - Impaired fasting glucose UA CC w/rflx Micro + Cult 4 Months Z00.00 - Encounter for general adult medical examination without abnormal findings TSH reflex Free T4 4 Months H81.10 - Benign paroxysmal vertigo, unspecified ear, R03.0 - Elevated blood-pressure reading, without diagnosis of hypertension, R63.4 - Abnormal weight loss, Z00.00 - Encounter for general adult medical examination without abnormal findings Vitamin B12 and Folate 4 Months E53.8 - Deficiency of other specified B group vitamins
== END 2024-08-10 09:48 | disposition home or self-care (01) ==
PROVIDERS: PCP Internal Medicine
DX: H81.10 Benign paroxysmal vertigo, unspecified ear (principal); R03.0 Elevated blood-pressure reading, without diagnosis of hypertension; R73.01 Impaired fasting glucose; E78.00 Pure hypercholesterolemia, unspecified; K21.9 Gastro-esophageal reflux disease without esophagitis; E53.8 Deficiency of other specified B group vitamins; E55.9 Vitamin D deficiency, unspecified

== ENCOUNTER → 2024-08-10 08:49 | Outpatient (BNVA) | payer MEDICARE, SELFPAY | PROVIDERS: PCP Internal Medicine | DX: M79.672 Pain in left foot (principal); R03.0 Elevated blood-pressure reading, without diagnosis of hypertension; K21.9 Gastro-esophageal reflux disease without esophagitis; E78.00 Pure hypercholesterolemia, unspecified; H81.10 Benign paroxysmal vertigo, unspecified ear; R73.01 Impaired fasting glucose; E53.8 Deficiency of other specified B group vitamins; E55.9 Vitamin D deficiency, unspecified | CPT/HCPCS: 96127; 99212 ==

== ENCOUNTER 2024-11-13 07:39 | Outpatient (REF) | payer MEDICARE, SELFPAY ==
[2024-11-13 07:55] LABS: MANUAL DIFF FLAG NO
[2024-11-13 08:42] LABS: Estimated Average Glucose 108 mg/dL; Hemoglobin A1c % 5.4 % (<6.0); Total Hemoglobin (HGBA1C) 3488.2428 umol/L
[2024-11-13 08:45] LABS: Eosinophils Absolute Auto 0.4 X10*3/uL (0.0-0.4); Eosinophils Percent Auto 8.7 % (0-4); Hematocrit 40.8 % (42.0-52.0); Hemoglobin 13.4 g/dl (14.0-18.0); Imm Gran Abs Auto 0.01 X10*3/uL (0.00-0.03); Imm Gran Pct Auto 0.2 % (0.0-0.4); Lymphocytes Absolute Auto 1.7 X10*3/uL (1.2-4.9); Lymphocytes Percent Auto 36.8 % (20-40); Mean Corpuscular HGB Conc 32.8 g/dl (31.0-36.0); Mean Corpuscular Hemoglobin 29.3 pg (27.0-33.0); Mean Corpuscular Volume 89.1 fL (80.0-98.0); Mean Platelet Volume 9.6 fL (9.4-12.4); Monocytes Absolute Auto 0.4 X10*3/uL (0.1-1.2); Monocytes Percent Auto 7.8 % (2-11); Neutrophils Absolute Auto 2.1 x10*3/uL (2.0-8.3); Neutrophils Percent Auto 46.5 % (45-73); Platelet Count 184 X10*3/uL (160-400); Red Blood Count 4.58 X10*6/uL (4.60-5.80); Red Cell Distribution Width 14.2 % (11.0-16.0); White Blood Count 4.6 X10*3/uL (4.8-10.8)
[2024-11-13 08:49] LABS: Appearance Urine Clear; Color Urine Yellow; Glucose Urine UA Negative (Negative); Leukocyte Esterase Urine Negative (Negative); Nitrite Urine Negative (Negative); Specific Gravity - Urine 1.025 (1.005-1.025); Urine Blood Negative (Negative); Urine Ketones Trace mg/dL (Negative); Urine Protein Negative (Neg-Trace)
[2024-11-13 09:38] LABS: Alanine Aminotransferase 20 U/L (0-40); Albumin Level 4.2 g/dL (3.5-5.0); Alkaline Phosphatase 78 U/L (39-117); Anion Gap 11 (12-20); Aspartate Amino Transferase 23 U/L (5-37); Bilirubin Total 0.5 mg/dL (0.0-1.0); Blood Urea Nitrogen 22 mg/dL (9-16); Calcium 9.1 mg/dL (8.4-10.2); Carbon Dioxide 25 mmol/L (22-29); Chloride 110 mmol/L (96-108); Cholesterol 179 mg/dL (<200); Estimated Glomerular Filt Rate > 60; Glucose Fasting 106 mg/dL (60-99); HDL Cholesterol 47 mg/dL (>40); LDL Cholesterol Calculated 116 mg/dL (<100); Potassium 4.4 mmol/L (3.3-5.1); Sodium 142 mmol/L (135-145); Total Protein 7.4 g/dL (6.5-8.0); Triglycerides 81 mg/dL (<150)
[2024-11-13 09:56] LABS: TSH reflex Free T4 2.28 uIU/mL (0.32-4.0)
[2024-11-13 10:13] LABS: Vitamin B12 504 pg/mL (200-900)
== END 2024-11-13 07:40 | disposition home or self-care (01) ==
LOC: HO.LAB 07:39
PROVIDERS: PCP Internal Medicine
DX: Z00.00 Encounter for general adult medical examination without abnormal findings (principal); H81.10 Benign paroxysmal vertigo, unspecified ear; K21.9 Gastro-esophageal reflux disease without esophagitis; E78.00 Pure hypercholesterolemia, unspecified; R63.4 Abnormal weight loss; R03.0 Elevated blood-pressure reading, without diagnosis of hypertension; E53.8 Deficiency of other specified B group vitamins; R73.01 Impaired fasting glucose; E55.9 Vitamin D deficiency, unspecified
CPT/HCPCS: 36415; 80053; 80061; 81003; 82306; 82607; 82746; 83036; 84443; 85025

== ENCOUNTER → 2024-11-24 08:54 | Outpatient (BNVA) | payer MEDICARE, SELFPAY | PROVIDERS: PCP Internal Medicine; Visit Provider Internal Medicine | DX: Z00.00 Encounter for general adult medical examination without abnormal findings (principal); E78.00 Pure hypercholesterolemia, unspecified; R03.0 Elevated blood-pressure reading, without diagnosis of hypertension; R73.01 Impaired fasting glucose; E55.9 Vitamin D deficiency, unspecified; E53.8 Deficiency of other specified B group vitamins; G47.00 Insomnia, unspecified; F41.9 Anxiety disorder, unspecified; F32.A Depression, unspecified; M50.90 Cervical disc disorder, unspecified, unspecified cervical region; M77.32 Calcaneal spur, left foot | CPT/HCPCS: 96127; 99397 ==

== ENCOUNTER → 2024-11-24 08:54 | Outpatient (AMB) | payer MEDICARE, SELFPAY ==
[2024-11-24 08:59] VITALS: BP 132/76; PULSE 77; O2SAT 97; BMI 25.1
--- NOTE | 2024-11-24 08:59 | MHC.PC.OV ---
Vital Signs 11/24/24 08:59 Height 5 ft 7 in Weight 160 lb 8 oz BMI 25.1 BP 132/76 Blood Pressure Location Lt brachial Position Sitting Pulse 77 Pulse Source Pulse Oximeter Pulse Oximetry (%) 97 Oxygen Delivery Method Room Air Intake Visit Reasons: Annual Exam Psychologist [employer] Person[employer] Required: No Accompanied by: Self / Same As Patient Allergies No Known Allergies [No Known Allergies*] Allergy (Verified 11/24/24 09:11) Medication List - Last Reconciled 11/24/24 by Chris Wilkerson MD cholecalciferol (vitamin D3) 25 mcg PO DAILY meclizine 25 mg PO BID PRN mecobalamin (vitamin B12) 1,000 mcg PO DAILY miscellaneous medical supply (Blood Pressure Cuff) As directed pantoprazole 40 mg PO DAILY PRN 90 days Tobacco use date assessed: 11/24/24 Fall risk assessment: No Falls in past year Last assessed Fall Risk: 11/24/24 Dental Screening Dental Screen Date: 11/24/24 Did you have a dental visit in the last 12 months?: Yes Did you have a dental problem in the last 6 months where you did not have access to dental care?: No Was dental information given to patient?: Patient has dentist HPI Annual Exam HPI Details Patient comes in today for his annual physical examination States that he feels okay He denies any headaches or dizziness Denies any chest pains, no SOB No nausea/vomiting, no abdominal pain No change in bowel habits noted He denies any acute urinary symptoms He had his follow up labs done a couple of weeks ago - to discuss his results He is up-to-date with his screening colonoscopy, which was last done last year in January 2024 - he will be due for repeat colonoscopy in 10 years (2033) [facility] Medical History (Updated 11/24/24 @ 09:40 by Chris Wilkerson MD) Insomnia Vitamin B12 deficiency Vitamin D deficiency Impaired fasting glucose Cervical disc disease GERD without esophagitis Pure hypercholesterolemia Surgical History (Updated 11/24/24 @ 09:16 by Chris Wilkerson MD) History of esophagogastroduodenoscopy (EGD) History of colonoscopy (~10/09/13) History of surgery History of arthroscopic surgery of elbow History of hemorrhoidectomy Family History Father Suicide Mother Heart disease CVD (cardiovascular disease) Diabetes Emphysema lung Other Mental health problem Social History Household Members: Spouse Housing: House Alcohol intake: current Alcohol intake frequency: does not drink Patient Tobacco Use Status: Never used Tobacco e-Cigarette/Vaping Use: Never Used Second Hand Smoke Exposure: Yes service: No Current occupational status: employed and retired 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 1. Little interest or pleasure in doing things: not at all 2. Feeling down, depressed, or hopeless: several days 3. Trouble falling or staying asleep, or sleeping too much: several days 4. Feeling tired or having little energy: not at all 5. Poor appetite or overeating: not at all 6. Feeling bad about yourself - or that you are a failure or have let yourself or your family down: not at all 7. Trouble concentrating on things, such as reading the newspaper or watching television: not at all 8. Moving or speaking so slowly that other people could have noticed. Or the opposite - being so fidgety or restless that you have been moving around a lot more than usual: not at all 9. Thoughts that you would be better off or of hurting yourself in some way: not at all Total score: 2 Depression Screening Interpretation: Negative Depression Screening Done: Yes 26781 - PHQ-9 Billing: Yes Source: Developed by Drs. Everette Alejandre, Donna Lucas, Markell Waldron and colleagues, with an educational thanh from [employer]. Thrive Questionnaire Date Thrive assessed: 11/24/24 I am a: Patient What is your living situation today?: I have a steady place to live Within the past 12 months, did the food you bought not last and you didn't have the money to get more?: Never true Within the past 12 months, did you worry whether your food would run out before you got money to buy more?: Never true Do you have trouble paying for medicines?: No Do you have trouble getting transportation to medical appointments?: No Do you have trouble paying your heating and electricity bill?: No Do you have trouble taking care of your child, family member or friend?: No Do you have trouble with day-to-day activities such as bathing, preparing meals, shopping, managing finances, etc.?: No Are you currently unemployed and looking for a job?: I choose not to answer this question Are you interested in more education?: No Please select the resources that you would like help with: None Currently or been in a relationship where the following occur: No concerns reported THRIVE Score: 0 AUDIT C Alcohol Use Questionnaire (AUDIT-C) 1. How often do you have a drink containing alcohol?: 2-4 times a month 2. How many drinks containing alcohol do you have on a typical day when you are drinking?: 3 or 4 3. How often do you have six or more drinks on one occasion?: Less than monthly Total Score: 4 Score Reviewed/Action Taken: Yes ELIA-7 AMB Questionnaire ELIA-7 Date ELIA - 7 assessed: 11/24/24 Feeling nervous, anxious, or on edge: 1 = Several days Not being able to stop or control worryin = Several days Worrying too much about different things: 1 = Several days Trouble relaxin = Several days Being so restless that it is hard to sit still: 0 = Not at all Becoming easily annoyed or irritable: 0 = Not at all Feeling afraid as if something awful might happen: 0 = Not at all Total ELIA-7 score (0-4 normal; 5-9 mild; 10-14 moderate; 15-21 severe): 4 Source: Developed by Drs. Everette Alejandre, Donna Lucas, Markell Waldron and colleagues, with an educational thanh from [employer]. Review of Systems Const Denies chills, Denies fatigue, Denies fever(s), Denies headache(s), Denies malaise and Denies weakness Eyes Denies blurry vision, Denies change in vision, Denies irritation and Denies itchy eyes ENT Denies dysphagia, Denies dizziness, Denies otalgia, Denies headache(s), Denies nasal congestion, Denies neck pain, Denies odynophagia and Denies sore throat Card Denies chest pain, Denies rapid heart rate, Denies irregular heart rhythm, Denies palpitations and Denies dyspnea Resp Denies chest congestion, Denies cough, Denies dyspnea and Denies wheezing GI Denies abdominal pain, Denies bloating, Denies constipation, Denies dysphagia, Denies heartburn, Denies diarrhea, Denies nausea, Denies odynophagia and Denies vomiting Denies hematuria, Denies difficulty urinating, Denies dysuria, Denies urinary frequency and Denies urinary urgency Musc Denies back pain, Denies arthralgias, Denies joint swelling, Denies muscle weakness and Denies neck pain Skin/Breast Denies change in pigmentation, Denies lesions, Denies rash and Denies unusual bruising Neuro Denies dizziness, Denies headache(s), Denies paresthesias and Denies weakness Psych Reports anxiety (especially in the morning when he wakes up early - increasing lately) Endo Denies fatigue and Denies palpitations Aller/Immun Denies itchy eyes and Denies wheezing Physical exam (Primary Care) Vital Signs: Last Vital Signs Pulse 77 11/24/24 08:59 BP 132/76 11/24/24 08:59 Pulse Ox 97 11/24/24 08:59 Oxygen Delivery Method Room Air 11/24/24 08:59 BMI result Body Mass Index 25.1 Tobacco/Smoking Status: Tobacco use Status Tobacco use date assessed 11/24/24 11/24/24 09:07 Patient Tobacco Use Status Never used Tobacco 11/24/24 09:07 e-Cigarette/Vaping Use Never Used 11/24/24 09:07 PHQ-9: PHQ-9 Score PHQ-9: Total score 2 11/24/24 09:07 Depression Screening Interpretation: Negative Thrive Assessment: Date of Thrive Assessment Date Thrive assessed 11/24/24 11/24/24 09:07 Currently or been in a relationship where the following occur: No concerns reported Const General: no acute distress, alert and awake Orientation/consciousness: patient oriented x3 HENMT Head: Yes normocephalic and Yes atraumatic Ears: external ears normal, TM's normal bilaterally and EAC's normal General nose exam: No nasal discharge present Face and sinus: Yes normal facial exam and Yes sinuses nontender Teeth and gingiva: dentition normal Throat: Yes posterior oropharynx normal and Yes tonsils normal (no TP congestion) Eyes Eyelids: Yes eyelids normal Conjunctivae: conjunctivae normal Pupils: Equal, round and reactive pupils present EOM: EOMs intact bilaterally Neck Neck: Yes no lymphadenopathy and Yes supple Thyroid: Thyroid normal Resp Auscultation: clear to auscultation bilaterally, no rales and no wheezes Cardio Rate: regular rate Rhythm: regular rhythm Heart sounds: no murmurs GI Palpation (GI): Soft to palpation, nontender and No hepatosplenomegaly present Auscultation: normal bowel sounds General: Yes no CVA tenderness Back/Spine/Pelvis Back: no CVA tenderness Thoracic/Lumbar Spine: thoracic and lumbar spine normal to inspection Skin Lesions: no lesions Rashes: no rashes Neuro General: patient oriented x3, moves all extremities, no focal motor deficits and CN's II-XI intact bilaterally Cranial nerves: Yes Equal, round and reactive pupils present Cognition (Neuro): normal cognition Gait exam (Neuro): Normal gait present Extrem General: Yes no clubbing, cyanosis or edema Results Reviewed Results Reviewed: Laboratory Tests 05/13/24 11/13/24 11/13/24 14:05 07:50 07:54 WBC 4.6 L Hgb 13.4 L Hct 40.8 L Plt Count 184 Sodium 142 Potassium 4.4 Creatinine 0.88 Estimated GFR > 60 Random Glucose 96 Fasting Glucose 106 H Hemoglobin A1c % 5.4 Calcium 9.1 AST 23 ALT 20 Triglycerides 81 Cholesterol 179 LDL Cholesterol, Calc 116 H HDL Cholesterol 47 Vitamin B12 504 25-OH Vitamin D Total 39.0 TSH 2.28 Ur Specific [place] 1.025 Urine Protein Negative Urine Glucose (UA) Negative Urine Blood Negative Urine Nitrite Negative Ur Leukocyte Esterase Negative Coding Level of Care Code Est Pt Prev Care >65y(61410) Diagnoses Annual physical exam Z00.00 Pure hypercholesterolemia E78.00 Impaired fasting glucose R73.01 Elevated blood-pressure reading without diagnosis of hypertension R03.0 GERD without esophagitis K21.9 Vitamin D deficiency E55.9 Vitamin B12 deficiency E53.8 Cervical disc disease M50.90 Calcaneal spur, left foot M77.32 Insomnia, unspecified type G47.00 Insomnia type: unspecified Anxiety F41.9 Depression, unspecified depression type F32.A Depression Type: unspecified Additional Codes PHQ-9 - 64612 - PHQ-9 Billing: Yes ([id number]) Assessment & Plan Assessment & Plan (1) Annual physical exam: Code(s): Z00.00 - Encounter for general adult medical examination without abnormal findings Category: Medical Plan: Results of his labs done a couple of weeks ago reviewed and discussed with patient He is up-to-date with his screening colonoscopy, which was last done last year in January 2024 - he will be due for repeat colonoscopy in 10 years (2033) (2) Pure hypercholesterolemia: Code(s): E78.00 - Pure hypercholesterolemia, unspecified Category: Medical Plan: He is advised that his cholesterol levels have improved slightly from previous Reinforced low cholesterol diet Patient still prefers not to take any Rx and will keep working on his diet and lifestyle changes to try to improve his cholesterol levels Will recheck his labs and fasting lipids in 4 months for follow up (3) Impaired fasting glucose: Code(s): R73.01 - Impaired fasting glucose Category: Medical Plan: His FBS was at 106 mg/dl on his recent labs but his HgbA1c was normal at 5.4% HgbA1c has been normal at 5.3% and 5.5% when checked previously Reinforced low calorie diet/exercise as tolerated Will continue to monitor his blood sugar and will recheck his HgbA1c in 4 months for follow up (4) Elevated blood-pressure reading without diagnosis of hypertension: Code(s): R03.0 - Elevated blood-pressure reading, without diagnosis of hypertension Category: Medical Plan: Corrected/ resolved His blood pressure today again appears acceptable Reinforced low sodium diet He is reminded to continue monitoring his BP regularly - goal is systolic BP of 120 mm or less (5) GERD without esophagitis: Code(s): K21.9 - Gastro-esophageal reflux disease without esophagitis Category: Medical Plan: Dietary restrictions reinforced Continue Pantoprazole 40 mg QD He had EGD done again with his colonoscopy last year, which revealed (+) findings of proximal gastritis, small hiatal hernia and gastroesophageal reflux Biopsies done came back negative for dysplasia (6) Vitamin D deficiency: Code(s): E55.9 - Vitamin D deficiency, unspecified Category: Medical Plan: Continue Vitamin D3 1000 units QD (7) Vitamin B12 deficiency: Code(s): E53.8 - Deficiency of other specified B group vitamins Category: Medical Plan: Corrected - continue Vitamin B12 1000 mcg QD (8) Cervical disc disease: Code(s): M50.90 - Cervical disc disorder, unspecified, unspecified cervical region Category: Medical Plan: Cervical spine x-rays done in 2020 revealed (+) moderate degenerative changes throughout the cervical spine, with mild progression of changes from previous He is again advised to continue with the neck exercises that he was previously taught by PT; can call for referral again at any time if his neck pain gets worse (9) Calcaneal spur, left foot: Code(s): M77.32 - Calcaneal spur, left foot Category: Medical Plan: X-rays of the left heel done in October 2023 revealed (+) large calcaneal spur He was referred to and seen by podiatry - was provided some heel inserts and sent for physical therapy but he stopped going as he could not afford the co-pay that he has to put up every time he goes for PT (10) Insomnia: Code(s): G47.00 - Insomnia, unspecified Category: Medical Qualifiers: Insomnia type: unspecified Qualified Code(s): G47.00 - Insomnia, unspecified Plan: Sleep hygiene reinforced He was started on a trial of Trazodone 50 mg Q HS PRN previously but patient states that he has been sleeping well lately, especially since he retired last year and prefers not to take any Rx for sleep if he can avoid it (11) Anxiety: Code(s): F41.9 - Anxiety disorder, unspecified Category: Medical Plan: Patient declined offer for Rx to help with his anxiety States that he prefers to try working out his issues first before taking any Rx Advised him that he can call at any time if he feels that his anxiety is getting worse and he needs help (12) Depression: Code(s): F32.A - Depression, unspecified Category: Medical Qualifiers: Depression Type: unspecified Qualified Code(s): F32.A - Depression, unspecified Plan: He was previously referred for counseling / therapy and states that he went a few times and eventually stopped Feels that he is doing better and is in a much better place now mentally than he was a few months ago Plan Follow up in 4 months Orders: Orders UA CC w/rflx Micro + Cult 4 Months R30.0 - Dysuria Complete Blood Count Auto Diff 4 Months D64.9 - Anemia, unspecified Comprehensive [place]. Panel Fast 4 Months E78.00 - Pure hypercholesterolemia, unspecified Lipid Panel 4 Months E78.00 - Pure hypercholesterolemia, unspecified TSH reflex Free T4 4 Months E78.00 - Pure hypercholesterolemia, unspecified Vitamin B12 and Folate 4 Months E53.8 - Deficiency of other specified B group vitamins Vitamin D 25-OH Total 4 Months E55.9 - Vitamin D deficiency, unspecified
--- OUTSIDE RECORDS SUMMARY | 2024-11-24 09:33 | XMS_ITS ---
Author Organization [facility] Address [address] [place] [address] Care Team Providers Care Mixer Driver Name Role Phone Rock HANNA, [place] Primary Care Provider Unava ilChely Haider [phone] REASON FOR VISIT cx appt 10/06/24 Encounters Encounter Location Date Provider Diagnosis [facility] [address] [place] [address] 09/09/2024 Chely Lin Plan Of Treatment No Information Progress Notes * Matthew PETERSEN ADOB:1955 (68 yo M)Acc No.[id number]:09/09/2024 Patient:?Matthew PETERSEN :1955???Age:68 Y???Sex:Male Address:[address] [place] [address], [id number] * true * Date:? Generated for Rehani sridhar/Faraz/eTransmitting on:?11/24/2024 09:33 AM EDT
--- OUTSIDE RECORDS SUMMARY | 2024-11-24 09:33 | XMS_ITS ---
Author Organization [facility] Address [address] [place] [id number] Care Team Providers Care Electrician Supervisor Airplane Name Role Phone Rock HANNA, Chris Primary Care Provider UnaEverette Leblanc [facility] [phone] REASON FOR VISIT bowel prep Medications Medication SIG (Take, Route, Frequency, Duration) Notes Start Date End Date Status MiraLax (colon prep) 17 GM/SCOOP 1 238Gm bottle mixed with Gatorade or Crystal Light Orally begin at 5:00 p.m. the day before the procedure for 1 day 11/05/2023 Active Dulcolax (colon prep) 5 MG take at 3:00 p.m and 7:00p.m. Orally two tablets twice a day for one day for 1 day 11/05/2023 Active Encounters Encounter Location Date Provider Diagnosis [facility] [address] [address] 11/05/2023 Everette Poole Plan Of Treatment Medication Medication Name Sig Start Date Stop Date Notes MiraLax (colon prep) 17 GM/SCOOP 1 238Gm bottle mixed with Gatorade or Crystal Light Orally begin at 5:00 p.m. the day before the procedure for 1 day 11/05/2023 Dulcolax (colon prep) 5 MG take at 3:00 p.m and 7:00p.m. Orally two tablets twice a day for one day for 1 day 11/05/2023 Progress Notes * KEYONNA MURPHY ADOB: 1955 (67 yo M)Acc No.[id number]:11/05/2023 Patient:?Riana MURPHY EDMONDKimmy A :1955???Age:67 Y???Sex:Male Address:[address] [place] [id number] * Refills? Start MiraLax (colon prep) Powder, 17 GM/SCOOP, Orally, 1, 1 238Gm bottle mixed with Gatorade or Crystal Light, begin at 5:00 p.m. the day before the procedure, 1 day, Refills=0 Start Dulcolax (colon prep) Tablet Delayed Release, 5 MG, Orally, 4, take at 3:00 p.m and 7:00p.m., two tablets twice a day for one day, 1 day, Refills=0 * true * Date:? Generated for Edwin waller/Faraz/Annetteitting on:?11/24/2024 09:33 AM EDT
--- OUTSIDE RECORDS SUMMARY | 2024-11-24 09:33 | XMS_ITS ---
[facility] Address [address] [facility] [place] [address] Care Team Providers Care Unified Communications Engineer Name Role Phone Rock HANNA, Hy[place] Primary Care Provider Chely Salcido Unavailable [phone] Allergies No Known Allergies REASON FOR VISIT Heel pain Medications Medication SIG (Take, Route, Frequency, Duration) Notes Start Date End Date Status Custom Orthotics as directed 07/14/2024 Active Medrol anup 4mg as directed orally a s directed for 6 days 07/14/2024 Not-Taking Vitamin B12 1000 MCG 1 tablet Orally Onc e a day Active Pantoprazole Sodium 40 MG 1 tablet Orall y Once a day Active Physical Therapy . . . 2-3x/week for 3- 4 weeks 07/14/2024 Active Vitamin D3 Active Social History Tobacco Use: Social History Observation Description Date Details (start date - stop date) Never Smoker NA - NA Tobacco Use/Smoking Question Answer Notes Are you a: nonsmoker Alcohol Screen Question Answer Notes Did you have a drink containing alcohol in the p ast year? Yes Points 0 Interpretation Negative Tobacco use other than smoking: Question Answer Notes Are you an other tobacco user? 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 and Short Achilles tendon (acquired), left ankle M67.02 Assessments Encounter Date Diagnosis (ICD Code) Assessment Notes Treatment Notes Treatment Clinical Notes Section Notes 08/17/2024 Achilles tendinitis of left lower extremity (ICD-10 - M76.62) 08/17/2024 Pain of left heel (ICD-10 - M79.672) 08/17/2024 Exostosis of left posterior calcaneus (ICD-10 - M77.32) 08/17/2024 Ryan's deformity of left heel (ICD-10 - M92.62) 08/17/2024 Short Achilles tendon (acquired), left ankle (ICD-10 - M67.02) Plan Of Treatment Next Appt Details Follow Up: 2 Months, Reason: Progress Notes * Matthew PETERSEN ADOB:1955 (68 yo M)Acc No.[id number]:08/17/2024 Progress Note Patient:?Matthew PETERSEN Provider:?Chely Lin DPM :1955???Age:68 Y???Sex:Male Vito e:08/17/2024 Address:[address] [place] [id number] Pcp:Chris Wilkerson MD Subjective: * Chief Complaints: * ???Heel pain * HPI: ???Heel pain:?Nature:?aching, throbbing, tenderness.?Location:?Back of heel, LEFT.?Duration:?, several years; pt states 10+ but worse in last few years.?Onset/Cause:?gradual, denies trauma.?Course:?unchanged.?Aggravated:?standing, walking, walking first thing in the morning/after rest.?Treatments:?pre-fabricated orthoses, stretching, physical therapy states he did for 2 weeks, Medrol - states did not help with pain.? * ROS:?General/Constitutional:?Nausea?denies.?Vomiting?denies.?Hunger Thirst?denies.?Loss appetite?denies.?Chills?denies.?Fatigue?denies.?Fever?denies.?Night Sweats?denies.?Unexplained weight loss?denies.?Unexplained weight gain?denies.?HEENTM:?Dentures?denies.?Dizziness?admits.?Glasses/contacts?admits.?Retinopathy?de nies.?Blurred/double vision?denies.?TMJ?denies.?Discharge/drainage?denies.?Implants?denies.?Sore throat?denies.?Dental implants?denies.?Hard of hearing ?denies.?Difficulty chewing/swallowing/speaking?denies.?Nose bleeds?denies.?Sore mouth?denies.?Respiratory:?On Oxygen?denies.?Pneumonia/pleurisy?denies.?Bronchitis?denies.?Emphysema?denies.?C oughing?denies.?Cough blood?denies.?Shortness of breath?denies.?Wheezing?denies.?Cardiovascular:?Pacemaker?denies.?MVP?denies.?WPW?denies.?CHF?denies.?Heart attack?denies.?Septal defect?denies.?Rapid beat?denies.?Chest pain ?denies.?Atrial Fib.?denies.?Murmur/Palpitations?denies.?Gastrointestinal:?Hemorrhoids?denies.?Stomach/Abdominal pain?denies.?Dark blood stool?denies.?Irritable bowel ?denies.?Constipation?denies.?Diarrhea?denies.?Hematology:?Swelling?denies.?Clots?denies.?Varicose Veins?denies.?Bruising?denies.?Bleeding problem?denies.?Genitourinary:?Blood urine?denies.?Frequent/Painfu/urination/bladder control?denies.?Kidney stones?denies.?Infection (UTI)?denies.?Nephropathy?denies.?sex trans dis (STD)?denies.?Prostate?denies.?Musculoskeletal:?Hammertoes?denies.?Bunions?denies.?Back Pain?denies.?Muscle Cramps/ Resting?denies.?Muscle cramps / walking?denies.?Generalized aches and pains?denies.?Weakness?denies.?Integ.:?Reyes?denies.?Scars?denies.?Corns/calluses?denies.?Ingrown nails?denies.?Painful nails?denies.?Open Sores?denies.?Rashes?denies.?Neurologic:?Difficulty sleeping?denies.?Brain disorder?denies.?Numbness?denies.?Balance trouble?denies.?Confusion?denies.?Fainting/blackouts?denies.?Tingling?denies.?Tr emors?denies.? * Medical History:? * Surgical History:?elbow shou lder surgery foot surgery knee surgery * Hospitalization/Major Diagno stic Procedure:?No Hospitalization History. * Family History:?Mother: dece ased, diagnosed with Diabetic - NIDDM, Unspecified essential hypertension, Unspecified heart disease, Unspecified cerebral artery occlusion with cerebral infarction, Family history of arthritis.?Father: .? * Social History:?Tobacco Use:?Tobacco Use/Smoking?Are you a:?nonsmoker ?Tobacco use other than smoking?Are you an other tobacco user??No ???Drugs/Alcohol:?Drugs?Have you used drugs other than those for medical reasons in the past 12 months??No ?Alcohol Screen?Did you have a drink containing alcohol in the past year??Yes ?Points?0 ?Interpretation?Negative ???Miscellaneous:?Caffeine: yes, frequency:. ?Marital status: . ?Occupation: Retired. * Medications:?TakingVitamin D 3 Vitamin B12 1000 MCG Tablet Extended Release 1 tablet Orally Once a day Pantoprazole Sodium 40 MG Tablet Delayed Release 1 tablet Orally Once a day Custom Orthotics as directed Physical Therapy . . . . 2-3x/week Taking Vitamin D3 Taking Vitamin B12 1000 MCG Tablet Extended Release 1 tablet Orally Once a day Taking Pantoprazole Sodium 40 MG Tablet Delayed Release 1 tablet Orally Once a day Taking Custom Orthotics as directed Taking Physical Therapy . . . . 2- 3x/week Not-Taking/PRNMedrol anup 4mg Tablet Therapy Pack as directed orally as directed Medication List reviewed and reconciled with the patientNot-Taking/PRN Medrol anup 4mg Tablet Therapy Pack as directed orally as directed Medication List reviewed and reconciled with the patient * Allergies:?N.K.D.A.yes[Aller gies Verified] Objective: * Vitals:?Ht: 5ft 9in, Wt:160, BMI:23.63, Shoe size: 9.5, BP:126/66mm Hg, Ht-cm: 175.26 cm, Wt-k.57 kg. * Examination: ???Heel Pain: ?INSPECTION:?Pain on palpation to Posterior Superior Aspect Calcaneus,Pain on palpation to Achilles tendon/bursa with inflammation and swelling present at insertion,Prominent posterior and posterior/superior heel present, LEFT foot,Neg Spofford.?Orthopedic: ?MUSCLE STRENGTH:?5/5 all groups in a symmetrical fashion, B/L.?GAIT ABNORMALITY:?antalgic.?FOOT MORPHOLOGY:? Decreased Ankle joint dorsiflexion ROM, knee extended.?Neurological: ?SENSORY:?Neurological exam reveals intact sensorium, pain sensation normal, vibration sensation intact, pinprick sensation is normal in the lower extremities, Pt denies, anesthesia, burning, paresthesia, tingling, B/L.?General Examination: ?GENERAL APPEARANCE:?Reveals a pleasant, alert, well nourished, well- developed, well hydrated individual, who demonstrates proper attention to hygiene/body habitus, and is in no acute distress, Pt serves as own historian for office visit today.?ORIENTED:?person, place, and time.?Vascular: ?DP PULSES (B):?3/4, B/L.?PT PULSES (B):?3/4, B/L.?CAPILLARY FILL TIME:?immediate, all digits, B/L.?TROPHIC CONDITION-TEXTURE/ELASTICITY/TURGOR/HAIR GROWTH (B):?normal, B/L.?TEMPERTURE GRADIENT (C):?normal, warm to cool, proximal to distal, B/L, B/L.?PIGMENTATION:?normal, B/L.?Dermatologic: ?SKIN FINDINGS:?Skin exam reveals normal color, texture, elasticity, and turgor. There are no masses, nor excrescences. The interspaces are clear, B/L.? * Physical Examination:?L3000 Custom Fabricated OT:?Custom Orthotic?Custom Fabricated Orthoses.? 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 Plan: * Treatment: * Procedure Codes:? * Preventive Medicine:? ??Counseling:?Discussion:?-14: Office or other outpatient visit for the evaluation and management of an established patient, which required a medically appropriate history and/or examination and MODERATE level of DECISION MAKING for: 1 OR MORE CHRONIC PROBLEM(S) THATS WORSENING, 2 STABLE CHRONIC PROBLEMS, A NEWLY DIAGNOSED PROBLEM WITH UNCERTAIN PROGNOSIS, AN ACUTE COMPLICATED INJURY WITH MULTIPLE TREATMENT OPTIONS, OR AN ACUTE PROBLEM WITH ACCOMPANYING SYSTEMIC SYMPTOMS, THAT POSE(S) A MODERATE RISK OF MORBIDITY. THIS CONDITION MAY ALSO INCLUDE RX DRUG MANAGEMENT, OR A DECISON FOR MINOR SURGERY. The visit on the day of the encounter encompassed interpreting the data and educating the patient as to the nature of their condition, treatment options available according to their individual PMH, meds, allergies, and overall health/living conditions, as well as any potential risks or complications that may occur from a failure to adhere to, and participate in, the recommended course of therapy. The discussion included a complete verbal, and/or written explanation of the examination results, any x-rays taken, the proposed diagnosis, and outline of the treatment plan. A schedule for future care needs was also explained. The patient verbalized an understanding of the instructions at this time and agreed to be an active participant in their treatment. If the patient should think of any questions or concerns after the visit, I have encouraged the patient to call the office.?Heel pain:?Discussed other tx options for the patients condition, Recommend pt continue with physical therapy, recommended Night splint, continue stretching,.?Orthotic Dispensing:?The patient presents today for fitting and dispensing of orthotics. The inserts were checked against the prescription and found to be accurate. They were properly fitted to the patients feet and shoes in both weight-bearing and non-weight bearing attitudes. The patient was instructed to gradually increase the amount of time they are wearing the orthoses, starting with one hour the first day and thereon progressively increasing the amount of time used by one hours per day until they are comfortable to be worn all day and with all activities. They were asked to call the office if any signs of skin irritation were noted including redness, blistering or callous formation. The patient verbally indicated a full understanding of all the above information, Handout reviewed and dispensed, The patient signed confirmation form indicating receipt of DME device.?P.R.I.C.E.:?The patient was counseled on the use of P.R.I.C.E. and NSAIDS (if well tolerated) to aid in the recovery from their painful condition.?Physical Therapy:?Continue Physical therapy.?Shoe Gear Counseling:?The patient and I reviewed the types of shoes they should be wearing. My recommendation included obtaining a well-fitted shoe with a good supportive, non-foldable nor twistable sole, plenty of toe/room for the forefoot, and proper arch support. Based on todays examination, I recommended the patient look for new shoes, by having their feet professionally measured. We discussed that generally the best time of the day for a shoe fitting is the afternoon. Different shoes types and brands to best match the patients occupation and vocation were discussed. Specific brand selection will be up to the patient, their individual foot condition/deformities, and fit. The patient and I reviewed the standard new shoe break in period by wearing them for a few hours a day while checking for redness or sores as wear time is increased. The patient verbally confirmed to understanding the information discussed.?Stretching Exercises:?Stretching and deep tissue massage exercises for the patients injury/diagnosis were discussed and demonstrated, Handouts were also given.? * Follow Up:?2 Months * Images: * Sign off status: Completed true * Provider:?Chely Lin, MILDRED Date:? Generated for Edwin waller/Faraz/Annetteitting on:?11/24/2024 09:33 AM EDT History and Physical Notes * HPI (History of Present Illness) Category Sub-Category Detail Notes Category Not es Heel pain Duration: , several years; pt states 10+ but worse in last few years Nature: aching, throbbing, t enderness Location: Back of heel, LEFT Onset/Cause: gradual, denies trau ma Aggravated: standing, walking, w alking first thing in the morning/after rest Course: unchanged Treatments: pre-fabricated ortho ses, stretching, physical therapy states he did for 2 weeks, Medrol - states did not help with pain Physical Examination Category Sub-Category Detail Notes Section Note s L3000 Custom Fabricated OT Custom Orthotic Custom Fabricated Orthoses Examination Category Sub-Category Detail Notes Category Not es Neurological SENSORY: Neurological exa m reveals intact sensorium, pain sensation normal, vibration sensation intact, pinprick sensation is normal in the lower extremities, Pt denies, anesthesia, burning, paresthesia, tingling, B/L Dermatologic SKIN FINDINGS: Skin exam reveal s normal color, texture, elasticity, and turgor. There are no masses, nor excrescences. The interspaces are clear, B/L Orthopedic GAIT ABNORMALITY: antalgic FOOT MORPHOLOGY: Decreased Ankle join t dorsiflexion ROM, knee extended MUSCLE STRENGTH: 5/5 all groups in a symmetrical fashion, B/L General Examination GENERAL APPEARANCE: Reveals a pleasant, alert, well nourished, well-developed, well hydrated individual, who demonstrates proper attention to hygiene/body habitus, and is in no acute distress, Pt serves as own historian for office visit today ORIENTED: person, place, and t yaron Vascular DP PULSES (B): 3/4, B/L PT PULSES (B): 3/4, B/L CAPILLARY FILL TIME: immediate, all digi ts, B/L TEMPERTURE GRADIENT (C): normal, warm to cool, proximal to distal, B/L, B/L TROPHIC CONDITION-TEXTURE/ELASTICITY/TURGOR/HAIR GROWTH (B): normal, B/L PIGMENTATION: normal, B/L Heel Pain INSPECTION: Pain on palpatio n to Posterior Superior Aspect Calcaneus, Pain on palpation to Achilles tendon/bursa with inflammation and swelling present at insertion, Prominent posterior and posterior/superior heel present, LEFT foot, Neg Spofford
--- OUTSIDE RECORDS SUMMARY | 2024-11-24 09:33 | XMS_ITS ---
Author Organization [facility] Address [address] [place] [address] Care Team Providers Care Turf And Grounds Supervisor Name Role Phone Rock HANNA, Chris Primary Care Provider Unava ilChely Haider [phone] Encounters Encounter Location Date Provider Diagnosis [facility] [address] [place] [address] 10/06/2024 Chely Lin Plan Of Treatment No Information Progress Notes * Matthew PETERSEN ADOB:1955 (69 yo M)Acc No.[id number]:10/06/2024 Progress Notes Patient:Matthew SMITH Provider:?Chely Lin DPM :1955???Age:68 Y???Sex:Male Vito e:10/06/2024 Address:[address] [place] [id number] Pcp:Chris Wilkerson MD Subjective: * Chief Complaints: * ??? * Medical History:? Objective: * Vitals:? Assessment: Plan: * Treatment: * Images: * The named appointment provid er may or may not be the originator of this progress note, and it is not deemed complete until electronically signed by the appointment provider. Sign off status: Pending * Provider:?Chely Lin DPM Date:?06/2025 Generated for Edwin waller/Faraz/eTransmitting on:?11/24/2024 09:33 AM EDT
--- OUTSIDE RECORDS SUMMARY | 2024-11-24 09:33 | XMS_ITS ---
Author Organization [facility] Address [address] [place] [address] Care Team Providers Care Sharepoint Solutions Architect Name Role Phone Rock HANNA, [place] Primary Care Provider Unava ilable Everette Poole Unavailable [phone] REASON FOR VISIT add upper endo to procedure Encounters Encounter Location Date Provider Diagnosis [facility] [address] [place] [address] 11/21/2023 Everette Poole Plan Of Treatment No Information Progress Notes * KEYONNA MURPHY ADOB: 1955 (68 yo M)Acc No.[id number]:11/21/2023 Patient:?Riana MURPHY :1955???Age:67 Y???Sex:Male Address:[address] [place] [address] [place] [id number] * true * Date:? Generated for Printi sridhar/Faraz/eTransmitting on:?11/24/2024 09:33 AM EDT
--- OUTSIDE RECORDS SUMMARY | 2024-11-24 09:33 | XMS_ITS | Patient Health Record ---
Author Organization [facility] Address [address] [place] [address] Care Team Providers Care Magazine Hand Name Role Phone Rock HANNA, Hominy Primary Care Provider Unava ilable Everette Poole Unavailable [phone] Allergies No Known Allergies Results Component Value Reference Range Notes Pathology (Not yet reviewed by provider) Interpretation: Performing Lab:[facility], [address] [place] [phone] Notes/Report: Name: Matthew Welch Age/Sex: 68/M : 1955 Unit#: [id number] Attend Dr: Everette Poole Re02/10/24 Status : [facility] Location: [facility] Disch: SPEC : [id number] RECD : 02/10/24 STATUS: ELSY MCCARTHY NUM: [id number] NEETU: 02/10/24 [facility] DR: Everette Poole ENTERED: 02/10/24-05 08 SP TYPE: Surgical OTHR DR: Chris Wilkerson MD ORDERED: HE Stain/6, Gross Micro L4/2, IHC, Special st. 2/2, H. pylori, AB/PAS/2 Diagnosis A. Stomach, proximal , biopsy: Gastric antral type mucosa with [id number] chronic inactive gastritis a nd complete intestinal metaplasia; negative for Helicobacter pylori and dysplasia. B. Gastroesophageal junction at 36 cm, biopsy: Squamocolumnar junctional mucosa with mild chronic active inflammation; negative for intestinal metaplasia and dysplasia. Clinical History Pre-Op Dx: Encounter for screening for malignant neoplasm of colon Post-Op Dx: Upper: h iatal hernia, gastritis; Lower: diverticulosis, hemorrhoids Microscopic Description A-B. Microscopic sec tions examined. Intestinal metaplasia is seen (A) and no metaplastic changes are seen (B) , supported by AB/PAS stains; no Helicobacter organisms are seen, supported by H. pylo ri immunostain (A). Material Received A. Proximal stomach bx's B. GE junction at 36 bx's Gross Description Received in 2 parts. A. Received in forma lorna labeled ?proximal stomach biopsies? are 3 fragments of pink-brady soft tissue ranging from 0.3-0.5 cm in greatest dimension which are entirely submitted for microscopic examinat ion, 3 pieces in cassette A. B. Received in forma lorna labeled ?GE junction at 36 biopsies? are 4 fragments of pink-brady soft tissue ranging from 0.3-0.4 cm in greatest dimension which are entirely submitted for microscopic examinat ion, 4 pieces in cassette B. [facility] Special stains order ed and performed: AB/PAS on A-B; immunostain for H. pylori on A. CONTINUED ON NEXT PAGE Name: Matthew Welch Age/Sex: 68/M : 1955 Unit#: [id number] Attend Dr: Everette Poole Re02/10/24 Status : [facility] Location: [facility] Disch: SPEC : [id number] RECD : 02/10/24 STATUS: ELSY MCCARTHY NUM: [id number] NEETU: 02/10/24 [facility] DR: Everette Poole ENTERED: 02/10/24- 13 SP TYPE: Surgical OTHR DR: Chris Wilkerson MD ORDERED: HE Stain/6, Gross Micro L4/2, IHC, Special st. 2/2, H. pylori, AB/PAS/2 Copies To: Chris Wilkerson MD [address] [place] [id number] Everette Poole [address] [place] [address] [id number] Signed (si gnature on file) Sarah Iverson MD 02/11/24 1406 END OF REPORT Reason For Referral No Information Medications Medication SIG (Take, Route, Frequency, Duration) Notes Start Date End Date Status Omeprazole Active MiraLax (colon prep) 17 GM/SCOOP 1 238Gm bottle mixed with Gatorade or Crystal Light Orally begin at 5:00 p.m. the day before the procedure for 1 day 11/05/2023 Active Vitamin B12 1000mg A ctive Dulcolax (colon prep) 5 MG take at 3:00 p.m and 7:00p.m. Orally two tablets twice a day for one day for 1 day 11/05/2023 Active Vitamin D Active Problems Problem Type SNOMED Code ICD Code Onset Dates Problem Status W/U Status Risk Notes Problem Colon cancer screening (678083141) Colon cancer screening (Z12.11) Active confirmed Problem Pre-procedure evaluation check (596517435) Encounter for other preprocedural examination (Z01.818) Active confirmed Problem Diverticular disease of colon (545328695) Diverticulosis of large intestine without perforation or abscess without bleeding (K57.30) Active confirmed Problem Dysphagia (31714277) Dysphagia (R13.10) Active confirmed Problem Gastroesophageal reflux disease (166658798) Gastroesophageal reflux disease (K21.9) Active confirmed Problem Chronic gastritis (0901793) Gastritis, chronic (K29.50) Active confirmed Problem Gastroesophageal reflux disease (407183236) Chronic GERD (K21.9) Active confirmed Encounters Encounter Location Date Provider Diagnosis [facility] [place] [address] [place] [phone] 02/10/2024 Everette Poole Encounter for screen ing [...] chronic (ICD-10 - K29.50) Plan Of Treatment Pending Test Test Name Order Date Pathology 02/10/2024 Future Test Test Name Order Date UPPER GI ENDOSCOPY 07/30/2013 COLONOSCOPY 07/30/2013 COLONOSCOPY 11/05/2023 UPPER GI ENDOSCOPY [place] DILATION OF ESOPH 12/14/2023 Insurance Providers Payer Name Payer Address Payer Phone Subscriber Number Group Number Insured Name Patient Relationship to Insured Coverage Start Date Coverage End Date [facility] [address] Attn Claims [facility] [place] [id number] MATTHEW JASSO Self - patient is the insured Medical (General) History Medical History History ICD Code 09/27/2003 colonoscopy--negative except fo r internal hemoorhoids GERD-EGD 09/2013-minimal HH, no esophagit is nor [facility] Denies GA,DM,CVA,Lung disease,renal dise ase Negative screening colonoscopy except fo r a hyperplastic polyp in 09/2013 Surgical History Surgery Date(Month/Year) knee surgery-left right elbow surgery foot surgery-left hemorrhoids with Dr. Duncan
--- OUTSIDE RECORDS SUMMARY | 2024-11-24 09:34 | XMS_ITS ---
Author Organization [facility] Address [address] [place] [address] Care Team Providers Care Rehanger Name Role Phone Rock HANNA, Chris Primary Care Provider Unava ilable Everette Poole Unavailable [phone] REASON FOR VISIT screening,dysphagia,chronic gerd Problems Problem Type SNOMED Code ICD Code Onset Dates Problem Status W/U Status Risk Notes Problem Diverticular disease of colon (619402160) Diverticulosis of large intestine without perforation or abscess without bleeding (K57.30) Active confirmed Problem Chronic gastritis (3666471) Gastritis, chronic (K29.50) Active confirmed Encounters Encounter Location Date Provider Diagnosis [facility] Outpatient [address], [place] [id number] 02/10/2024 Everette Poole Encounter for screen ing [...] KEYONNA MURPHY ADOB: 1955 (69 yo M)Acc No.[id number]:02/10/2024 EGD and COL/MAC Patient:?Riana MURPHY Provider:?Everette Poole MD :1955???Age:68 Y???Sex:Male Vito e:02/10/2024 Address:[address] [place], [place] [id number] Pcp:Chris Wilkerson MD Subjective: * Chief Complaints: * ???1. Screening,dysphagia,ch ronic gerd. * Medical History:? Objective: * Vitals:? Assessment: * Assessment: 1.?Encounter for screening c olonoscopy - Z12.11 (Primary)???2.?Diverticulosis of large intestine without perforation or abscess without bleeding - K57.30???3.?Other hemorrhoids - K64.8???4.?Gastroesophageal reflux disease - K21.9???5.?Hiatal hernia - K44.9???6.?Gastritis, chronic - K29.50??? Plan: * Treatment: * Procedure Codes:?06372 DIAGN OSTIC COLONOSCOPY, 03572 UPPER GI ENDOSCOPY, BIOPSY * * The named appointment provid er may or may not be the originator of this progress note, and it is not deemed complete until electronically signed by the appointment provider. Sign off status: Pending * Provider:?Everette Poole MD Date:? 024 Generated for Edwin waller/Faraz/eTransmitting on:?11/24/2024 09:33 AM EDT
--- OUTSIDE RECORDS SUMMARY | 2024-11-24 09:34 | XMS_ITS | Patient Health Record ---
Author Organization [facility]iatry [facility] Address [address] [place] [address] Care Team Providers Care Police Commissioner Name Role Phone Rock HANNA [place] Primary Care Provider Chely Salcido Unavailable [phone] Allergies No Known Allergies Reason For Referral No Information Medications Medication SIG (Take, Route, Frequency, Duration) Notes Start Date End Date Status Custom Orthotics as directed 07/14/2024 Active Medrol anup 4mg as directed orally a s directed for 6 days 07/14/2024 Not-Taking Vitamin B12 1000 MCG 1 tablet Orally Onc e a day Active Pantoprazole Sodium 40 MG 1 tablet Orall y Once a day Active Vitamin D3 Active Physical Therapy . . . 2-3x/week for 3- 4 weeks 07/14/2024 Active Social History Tobacco Use: Social History [...] Are you an other tobacco user? 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 Vital Signs Blood pressure diastolic 66 mm Hg 08/17/2024 Height 5ft 9in in 08/17/2024 Blood pressure systolic 126 mm Hg 08/17/2024 Weight 160 lbs 08/17/2024 BMI 23.63 kg/m2 08/17/2024 Encounters Encounter Location Date Provider Diagnosis [address] [address] 07/14/2024 Chely Lin Achilles tendinitis of left lower extremity M76.62 ; Pain of left heel M79.672 ; Exostosis of left posterior calcaneus M77.32 ; Ryan's deformity of left heel M92.62 and Short Achilles tendon (acquired), left ankle M67.[address] [address] 08/17/2024 Chely Lin Achilles tendinitis of left lower extremity M76.62 ; Pain of left heel M79.672 ; Exostosis of left posterior calcaneus M77.32 ; Ryan's deformity of left heel M92.62 and Short Achilles tendon (acquired), left ankle M67.[address] [address] 08/14/2024 Chely Pericelaine [address] [address] 07/14/2024 Chely Perica [address] [address] 07/14/[address] [address] 09/09/2024 Chely Lin Assessments Encounter Date Diagnosis (ICD Code) Assessment Notes Treatment Notes Treatment Clinical Notes Section Notes 07/14/2024 Achilles tendinitis of left lower extremity (ICD-10 - M76.62) Patient Educated with: HEEL CORD STRETCHES.pdf (HEEL CORD STRETCHES.pdf) Patient Educated with: RICE THERAPY.pdf (RICE THERAPY.pdf) 08/17/2024 Achilles tendinitis of left lower extremity (ICD-10 - M76.62) 07/14/2024 Pain of left heel (ICD-10 - M79.672) 08/17/2024 Pain of left heel (ICD-10 - M79.672) 08/17/2024 Exostosis of left posterior calcaneus (ICD-10 - M77.32) 07/14/2024 Exostosis of left posterior calcaneus (ICD-10 - M77.32) 08/17/2024 Ryan's deformity of left heel (ICD-10 - M92.62) 07/14/2024 Ryan's deformity of left heel (ICD-10 - M92.62) 07/14/2024 Short Achilles tendon (acquired), left ankle (ICD-10 - M67.02) 08/17/2024 Short Achilles tendon (acquired), left ankle (ICD-10 - M67.02) Plan Of Treatment Pending Test Test Name Order Date X ray : Foot, left 3V 07/14/2024 Insurance Providers Payer Name Payer Address Payer Phone Subscriber Number Group Number Insured Name Patient Relationship to Insured Coverage Start Date Coverage End Date [facility] Adv [address] [place] [address] [id number] Matthew Collins Self - patient is the insured Medical (General) History Medical History History ICD Code Chicken pox Reflux ( GERD) Surgical History Surgery Date(Month/Year) elbow shoulder surgery foot surgery knee surgery
== END ==
LOC: HO.HMCH 08:55
PROVIDERS: PCP Internal Medicine; Visit Provider Internal Medicine
DX: Z00.00 Encounter for general adult medical examination without abnormal findings (principal); E78.00 Pure hypercholesterolemia, unspecified; R73.01 Impaired fasting glucose; R03.0 Elevated blood-pressure reading, without diagnosis of hypertension; K21.9 Gastro-esophageal reflux disease without esophagitis; E55.9 Vitamin D deficiency, unspecified; E53.8 Deficiency of other specified B group vitamins; M50.90 Cervical disc disorder, unspecified, unspecified cervical region; M77.32 Calcaneal spur, left foot; G47.00 Insomnia, unspecified; F41.9 Anxiety disorder, unspecified; F32.A Depression, unspecified

== ENCOUNTER 2025-04-05 07:30 | Outpatient (REF) | payer MEDICARE, SELFPAY ==
[2025-04-05 07:43] LABS: MANUAL DIFF FLAG NO
[2025-04-05 08:12] LABS: Hematocrit 43.5 % (42.0-52.0); Hemoglobin 13.7 g/dl (14.0-18.0); Imm Gran Abs Auto 0.01 X10*3/uL (0.00-0.03); Imm Gran Pct Auto 0.3 % (0.0-0.4); Lymphocytes Absolute Auto 1.5 X10*3/uL (1.2-4.9); Mean Corpuscular HGB Conc 31.5 g/dl (31.0-36.0); Mean Corpuscular Hemoglobin 28.5 pg (27.0-33.0); Mean Corpuscular Volume 90.4 fL (80.0-98.0); NRBC Abs Auto 0.000 X10*3/uL (0.0-0.012); NRBC Pct Auto 0.0 /100WBC (0.0-0.2); Platelet Count 164 X10*3/uL (160-400); Red Blood Count 4.81 X10*6/uL (4.60-5.80); White Blood Count 4.0 X10*3/uL (4.8-10.8)
[2025-04-05 08:16] LABS: Appearance Urine Clear; Glucose Urine UA Negative (Negative); PH 5.5 (5.0-9.0); Specific Gravity - Urine 1.020 (1.005-1.025)
[2025-04-05 09:04] LABS: Alanine Aminotransferase 15 U/L (0-40); Albumin Level 4.5 g/dL (3.5-5.0); Alkaline Phosphatase 75 U/L (39-117); Anion Gap 10 (12-20); Aspartate Amino Transferase 25 U/L (5-37); Blood Urea Nitrogen 20 mg/dL (9-16); Calcium 9.0 mg/dL (8.4-10.2); Carbon Dioxide 26 mmol/L (22-29); Chloride 110 mmol/L (96-108); Cholesterol 189 mg/dL (<200); Estimated Glomerular Filt Rate > 60; HDL Cholesterol 46 mg/dL (>40); Potassium 4.3 mmol/L (3.3-5.1); Sodium 142 mmol/L (135-145); Total Protein 7.3 g/dL (6.5-8.0); Triglycerides 89 mg/dL (<150)
[2025-04-05 09:24] LABS: Folate 13.2 ng/mL (> or = 4.0); Vitamin B12 502 pg/mL (200-900)
== END 2025-04-05 07:31 | disposition home or self-care (01) ==
LOC: HO.LAB 07:30
PROVIDERS: PCP Internal Medicine; Visit Provider Internal Medicine
DX: E53.8 Deficiency of other specified B group vitamins (principal); R30.0 Dysuria; D64.9 Anemia, unspecified; E78.00 Pure hypercholesterolemia, unspecified; E55.9 Vitamin D deficiency, unspecified
CPT/HCPCS: 36415; 80053; 80061; 81003; 82306; 82607; 82746; 84443; 85025

== ENCOUNTER 2025-04-12 09:53 | Outpatient (AMB) | payer MEDICARE, SELFPAY ==
--- OUTSIDE RECORDS SUMMARY | 2024-10-06 06:15 | XMS_ITS ---
Author Organization [facility] Address [address] [place] [address] Care Team Providers Care Veneer Puller Name Role Phone Rock HANNA, Chris Primary Care Provider Unava Chely Gomez Unavailable [phone] Encounters Encounter Location Date Provider Diagnosis [facility] [address] [place] [address] 10/06/2024 Chely Lin Plan Of Treatment No Information Progress Notes * Matthew PETERSEN ADOB:1955 (69 yo M)Acc No.[id number]:10/06/2024 Progress Notes Patient: Matthew PARRY Provider: Rush Lin DPM :1955 A ge:68 Y S ex:Male Date:10/06/2024 Address:[address] [place] [phone] Pcp:Chris Wilkerson MD Subjective: * Chief Complaints: [...] 10/06/2024 Generated for Printi ng/Fakevg/eTransmitting on: 0 04/12/2025 10:43 AM EDT
[2025-04-12 09:57] VITALS: BP 118/80; PULSE 75; O2SAT 98; BMI 24.6
--- NOTE | 2025-04-12 09:57 | MHC.PC.OV ---
Vital Signs 04/12/25 09:57 Height 5 ft 7 in Weight 157 lb 4 oz BMI 24.6 BP 118/80 Blood Pressure Location Lt brachial Position Sitting Pulse 75 Pulse Source Pulse Oximeter Pulse Oximetry (%) 98 Oxygen Delivery Method Room Air Intake Visit Reasons: hyperlipidemia, GERD, IFG Wound Specialist Required: No Accompanied by: Self / Same As Patient Allergies No Known Allergies (No Known Allergies*) Allergy (Verified 04/12/25 10:16) Medication List - Last Reconciled 04/12/25 by Chris Wilkerson MD cholecalciferol (vitamin D3) 25 mcg PO DAILY meclizine 25 mg PO BID PRN mecobalamin (vitamin B12) 1,000 mcg PO DAILY miscellaneous medical supply (Blood Pressure Cuff) As directed pantoprazole 40 mg PO DAILY PRN 90 days Tobacco use date assessed: 04/12/25 Fall risk assessment: No Falls in past year Last assessed Fall Risk: 04/12/25 Dental Screening Dental Screen Date: 04/12/25 Did you have a dental visit in the last 12 months?: Yes Did you have a dental problem in the last 6 months where you did not have access to dental care?: No Was dental information given to patient?: Patient has dentist HPI hyperlipidemia, GERD, IFG HPI Details Patient comes in today for his follow up visit States that he feels okay but he continues to be bothered by his chronic neck pain and left heel pain States that his heel pain sometimes limit his mobility and activity when it flares up and he feels that his neck pain has been getting worse lately and he is again requesting for a referral to physical therapy to help him with his neck pain He denies any headaches or dizziness Denies any chest pains, no SOB No nausea/vomiting, no abdominal pain No change in bowel habits noted He had his follow up labs done last week - to discuss his results [facility] Medical History Insomnia Vitamin B12 deficiency Vitamin D deficiency Impaired fasting glucose Cervical disc disease GERD without esophagitis Pure hypercholesterolemia Surgical History History of esophagogastroduodenoscopy (EGD) History of colonoscopy (~10/09/13) History of surgery History of arthroscopic surgery of elbow History of hemorrhoidectomy Family History Father Suicide Mother Heart disease CVD (cardiovascular disease) Diabetes Emphysema lung Other Mental health problem Social History Household Members: Spouse Housing: House Alcohol intake: current Alcohol intake frequency: does not drink Patient Tobacco Use Status: Never used Tobacco e-Cigarette/Vaping Use: Never Used Second Hand Smoke Exposure: Yes service: No Current occupational status: employed and retired 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 1. Little interest or pleasure in doing things: not at all 2. Feeling down, depressed, or hopeless: several days 3. Trouble falling or staying asleep, or sleeping too much: several days 4. Feeling tired or having little energy: not at all 5. Poor appetite or overeating: not at all 6. Feeling bad about yourself - or that you are a failure or have let yourself or your family down: not at all 7. Trouble concentrating on things, such as reading the newspaper or watching television: not at all 8. Moving or speaking so slowly that other people could have noticed. Or the opposite - being so fidgety or restless that you have been moving around a lot more than usual: not at all 9. Thoughts that you would be better off or of hurting yourself in some way: not at all Total score: 2 Depression Screening Interpretation: Negative Depression Screening Done: Yes 45523 - PHQ-9 Billing: Yes Source: Developed by Drs. Everette Alejandre, Donna Lucas, Markell Waldron and colleagues, with an educational thanh from [employer]. Thrive Questionnaire Date Thrive assessed: 04/12/25 I am a: Patient What is your living situation today?: I have a steady place to live Within the past 12 months, did the food you bought not last and you didn't have the money to get more?: Never true Within the past 12 months, did you worry whether your food would run out before you got money to buy more?: Never true Do you have trouble paying for medicines?: No Do you have trouble getting transportation to medical appointments?: No Do you have trouble paying your heating and electricity bill?: No Do you have trouble taking care of your child, family member or friend?: No Do you have trouble with day-to-day activities such as bathing, preparing meals, shopping, managing finances, etc.?: No Are you currently unemployed and looking for a job?: I choose not to answer this question Are you interested in more education?: No Please select the resources that you would like help with: None Currently or been in a relationship where the following occur: No concerns reported THRIVE Score: 0 AUDIT C Alcohol Use Questionnaire (AUDIT-C) 1. How often do you have a drink containing alcohol?: 2-4 times a month 2. How many drinks containing alcohol do you have on a typical day when you are drinking?: 3 or 4 3. How often do you have six or more drinks on one occasion?: Less than monthly Total Score: 4 Score Reviewed/Action Taken: Yes ELIA-7 AMB Questionnaire ELIA-7 Date ELIA - 7 assessed: 04/12/25 Feeling nervous, anxious, or on edge: 1 = Several days Not being able to stop or control worryin = Several days Worrying too much about different things: 1 = Several days Trouble relaxin = Several days Being so restless that it is hard to sit still: 0 = Not at all Becoming easily annoyed or irritable: 0 = Not at all Feeling afraid as if something awful might happen: 0 = Not at all Total ELIA-7 score (0-4 normal; 5-9 mild; 10-14 moderate; 15-21 severe): 4 Source: Developed by Drs. Everette Alejandre, Donna Lucas, Markell Waldron and colleagues, with an educational thanh from [employer]. Review of Systems Const Denies chills, Denies fatigue, Denies fever(s) and Denies headache(s) ENT Denies dysphagia, Denies dizziness, Denies otalgia, Denies headache(s), Reports neck pain (increasing lately), Denies odynophagia and Denies sore throat Card Denies chest pain, Denies rapid heart rate, Denies irregular heart rhythm, Denies palpitations and Denies dyspnea Resp Denies chest congestion, Denies cough and Denies dyspnea GI Denies abdominal pain, Denies constipation, Denies dysphagia, Denies heartburn, Denies diarrhea, Denies nausea, Denies odynophagia and Denies vomiting Denies difficulty urinating, Denies dysuria and Denies urinary frequency Musc Denies back pain, Reports arthralgias (in the left heel - see HPI) and Reports neck pain (increasing lately) Skin/Breast Denies rash Neuro Denies dizziness, Denies headache(s) and Denies paresthesias Psych Reports anxiety (better controlled lately) Endo Denies fatigue and Denies palpitations Physical exam (Primary Care) Vital Signs: Last Vital Signs Pulse 75 04/12/25 09:57 BP 118/80 04/12/25 09:57 Pulse Ox 98 04/12/25 09:57 Oxygen Delivery Method Room Air 04/12/25 09:57 BMI result Body Mass Index 24.6 Tobacco/Smoking Status: Tobacco use Status Tobacco use date assessed 04/12/25 04/12/25 10:03 Patient Tobacco Use Status Never used Tobacco 04/12/25 10:03 e-Cigarette/Vaping Use Never Used 04/12/25 10:03 PHQ-9: PHQ-9 Score PHQ-9: Total score 2 04/12/25 10:20 Depression Screening Interpretation: Negative Thrive Assessment: Date of Thrive Assessment Date Thrive assessed 04/12/25 04/12/25 10:03 Currently or been in a relationship where the following occur: No concerns reported Const General: no acute distress and alert HENMT Ears: TM's normal bilaterally and EAC's normal Throat: Yes posterior oropharynx normal and Yes tonsils normal (no TP congestion) Neck Neck: No lymphadenopathy and Yes tender Thyroid: Thyroid normal Resp Auscultation: clear to auscultation bilaterally, no rales and no wheezes Cardio Rate: regular rate Rhythm: regular rhythm Heart sounds: no murmurs GI Palpation (GI): Soft to palpation and nontender Auscultation: normal bowel sounds General: Yes no CVA tenderness Back/Spine/Pelvis Back: no CVA tenderness Cervical Spine: cervical muscular tenderness (bilaterally), pain with cervical ROM and Cervical spine tenderness Thoracic/Lumbar Spine: No lumbar spinal tenderness Skin Rashes: no rashes Extrem General: Yes no clubbing, cyanosis or edema Left lower extremity: foot Details: tenderness Location: of the calcaneus Details: point tenderness Results Reviewed Results Reviewed: Laboratory Tests 04/05/25 04/05/25 07:38 07:42 WBC 4.0 L Hgb 13.7 L Hct 43.5 Plt Count 164 Sodium 142 Potassium 4.3 Creatinine 0.95 Estimated GFR > 60 Fasting Glucose 109 H Calcium 9.0 AST 25 ALT 15 Triglycerides 89 Cholesterol 189 LDL Cholesterol, Calc 126 H HDL Cholesterol 46 Vitamin B12 502 25-OH Vitamin D Total 56.6 TSH 1.59 Ur Specific [place] 1.020 Urine Protein Negative Urine Glucose (UA) Negative Urine Blood Negative Urine Nitrite Negative Ur Leukocyte Esterase Negative Coding Level of Care Code Est Pt Level 4 (63004) Diagnoses Pure hypercholesterolemia E78.00 Impaired fasting glucose R73.01 Elevated blood-pressure reading without diagnosis of hypertension R03.0 GERD without esophagitis K21.9 Vitamin D deficiency E55.9 Vitamin B12 deficiency E53.8 Cervical disc disease M50.90 Calcaneal spur, left foot M77.32 Insomnia, unspecified type G47.00 Insomnia type: unspecified Anxiety F41.9 Depression, unspecified depression type F32.A Depression Type: unspecified Additional Codes PHQ-9 - 44545 - PHQ-9 Billing: Yes ([id number]) Assessment & Plan Assessment & Plan (1) Pure hypercholesterolemia: Code(s): E78.00 - Pure hypercholesterolemia, unspecified Category: Medical Plan: Results of his labs done last week reviewed and discussed with patient - he is advised that his cholesterol levels have again increased slightly from previous and his LDL cholesterol is now at the high end of normal at 126 mg/dl Reinforced low cholesterol diet Patient still prefers not to take any Rx for his cholesterol and will keep working on diet and lifestyle changes to try to improve his cholesterol levels Will recheck his labs and fasting lipids in 4 months for follow up (2) Impaired fasting glucose: Code(s): R73.01 - Impaired fasting glucose Category: Medical Plan: His FBS was still slightly elevated at 109 mg/dl on his recent labs; his HgbA1c was normal at 5.4% when previously checked HgbA1c has been normal at 5.3% and 5.5% when checked in the past Reinforced low calorie/low carb diet;exercise as tolerated Will continue to monitor his blood sugar and will recheck his HgbA1c in 4 months for follow up (3) Elevated blood-pressure reading without diagnosis of hypertension: Code(s): R03.0 - Elevated blood-pressure reading, without diagnosis of hypertension Category: Medical Plan: Corrected/ resolved His blood pressure today appears well-controlled at 118/80 Reinforced low sodium diet He is reminded to continue monitoring his BP regularly - goal is systolic BP of 120 mm or less (4) GERD without esophagitis: Code(s): K21.9 - Gastro-esophageal reflux disease without esophagitis Category: Medical Plan: Dietary restrictions reinforced Continue Pantoprazole 40 mg QD He had EGD done again with his colonoscopy last year, which revealed (+) findings of proximal gastritis, small hiatal hernia and gastroesophageal reflux Biopsies done came back negative for dysplasia (5) Vitamin D deficiency: Code(s): E55.9 - Vitamin D deficiency, unspecified Category: Medical Plan: Continue Vitamin D3 1000 units QD (6) Vitamin B12 deficiency: Code(s): E53.8 - Deficiency of other specified B group vitamins Category: Medical Plan: Continue Vitamin B12 1000 mcg QD (7) Cervical disc disease: Code(s): M50.90 - Cervical disc disorder, unspecified, unspecified cervical region Category: Medical Plan: Cervical spine x-rays done in 2020 revealed (+) moderate degenerative changes throughout the cervical spine, with mild progression of changes from previous He is again requesting for a referral to PT for increasing neck pains lately - referral to PT placed Will also send him for updated cervical spine x-rays now considering the reported increase in his neck pain lately (8) Calcaneal spur, left foot: Code(s): M77.32 - Calcaneal spur, left foot Category: Medical Plan: X-rays of the left heel done in October 2023 revealed (+) large calcaneal spur He was referred to and seen by [facility] - was reportedly provided some heel inserts and sent for physical therapy but he stopped going as he could not afford the co-pay that he has to put up every time he goes for PT He is presently still c/o increased left heel pain, which he states sometimes significantly limits his mobility and activity Will refer him to [facility] for further evaluation and management /second opinion (9) Insomnia: Code(s): G47.00 - Insomnia, unspecified Category: Medical Qualifiers: Insomnia type: unspecified Qualified Code(s): G47.00 - Insomnia, unspecified Plan: Sleep hygiene reinforced He was started on a trial of Trazodone 50 mg Q HS PRN previously but patient states that he has been sleeping well lately, especially since he retired last year and prefers not to take any Rx for sleep if he can avoid it (10) Anxiety: Code(s): F41.9 - Anxiety disorder, unspecified Category: Medical Plan: Patient declined offer for Rx to help with his anxiety States that he prefers to try working out his issues first before taking any Rx Advised him that he can call at any time if he feels that his anxiety is getting worse and he needs help (11) Depression: Code(s): F32.A - Depression, unspecified Category: Medical Qualifiers: Depression Type: unspecified Qualified Code(s): F32.A - Depression, unspecified Plan: He was previously referred for counseling / therapy and states that he went a few times and eventually stopped Feels that he is doing better and is in a much better place now mentally than he was last year Plan Follow up in 4 months Orders: Orders XR cervical spine 3V Today M54.2 - Cervicalgia Complete Blood Count Auto Diff 4 Months D64.9 - Anemia, unspecified Lipid Panel 4 Months E78.00 - Pure hypercholesterolemia, unspecified PT Evaluation and Treatment Today G89.29 - Other chronic pain, M50.90 - Cervical disc disorder, unspecified, unspecified cervical region, M54.2 - Cervicalgia Hemoglobin A1c 4 Months R73.01 - Impaired fasting glucose Comprehensive [place]al[place]. Panel Fast 4 Months E78.00 - Pure hypercholesterolemia, unspecified Referrals Podiatry Referral M77.32 - Calcaneal spur, left foot, M79.672 - Pain in left foot
--- OUTSIDE RECORDS SUMMARY | 2025-04-12 10:44 | XMS_ITS | Patient Health Record ---
Author Organization [facility] Address [address] [place] [address] Care Team Providers Care Chinese Herbalist Name Role Phone Rock HANNA, [place] Primary Care Provider UnaEverette Leblanc Unavailable [phone] Allergies No Known Allergies Reason For Referral [...] Status Risk Notes Problem Colon cancer screening (939579836) Colon cancer screening (Z12.11) Active confirmed Problem Pre-procedure evaluation check (223827836) Encounter for other preprocedural examination (Z01.818) Active confirmed Problem Diverticular disease of colon (395824168) Diverticulosis of large intestine without perforation or abscess without bleeding (K57.30) Active confirmed Problem Dysphagia (59297387) Dysphagia (R13.10) Active confirmed Problem Gastroesophageal reflux disease (418924691) Gastroesophageal reflux disease (K21.9) Active confirmed Problem Chronic gastritis (3210974) Gastritis, chronic (K29.50) Active confirmed Problem Gastroesophageal reflux disease (807982048) Chronic GERD (K21.9) Active confirmed Plan Of Treatment Pending Test Test Name Order Date Pathology 02/10/2024 Future Test Test Name Order Date UPPER GI ENDOSCOPY 07/30/2013 COLONOSCOPY 07/30/2013 COLONOSCOPY 11/05/2023 UPPER GI ENDOSCOPY [place] DILATION OF ESOPH 12/14/2023 Insurance Providers Payer Name Payer Address Payer Phone Subscriber Number Group Number Insured Name Patient Relationship to Insured Coverage Start Date Coverage End Date [facility] [address] Attn Claims [place] [id number] KEYONNA JASSO Self - patient is the insured Medical (General) History Medical History History ICD Code 09/27/2003 colonoscopy--negative except fo r internal hemoorhoids GERD-EGD 09/2013-minimal HH, no esophagit is nor [employer] Denies ND,DM,CVA,Lung disease,renal dise ase Negative screening colonoscopy except fo r a hyperplastic polyp in 09/2013 Surgical History Surgery Date(Month/Year) knee surgery-left right elbow surgery foot surgery-left hemorrhoids with Dr. Duncan
== END 2025-04-12 10:28 | disposition home or self-care (01) ==
LOC: HO.HMCH 09:54
PROVIDERS: PCP Internal Medicine; Visit Provider Internal Medicine
DX: E78.00 Pure hypercholesterolemia, unspecified (principal); R73.01 Impaired fasting glucose; R03.0 Elevated blood-pressure reading, without diagnosis of hypertension; K21.9 Gastro-esophageal reflux disease without esophagitis; E55.9 Vitamin D deficiency, unspecified; E53.8 Deficiency of other specified B group vitamins; M50.90 Cervical disc disorder, unspecified, unspecified cervical region; M77.32 Calcaneal spur, left foot; G47.00 Insomnia, unspecified; F41.9 Anxiety disorder, unspecified; F32.A Depression, unspecified

== ENCOUNTER 2025-04-12 09:53 | Outpatient (REF) | payer MEDICARE, SELFPAY ==
--- NOTE | ~2025-04-12 | XR_ITS ---
EXAMINATION: XR CERVICAL SPINE CLINICAL INFORMATION: M54.2 - Cervicalgia COMPARISON: November 30, 2020. TECHNIQUE: AP lateral and atlantoodontoid views. FINDINGS: Craniocervical junction is intact. Multilevel marginal osteophyte formation and endplate sclerosis with decreased intervertebral disc height from C2 to C7 pronounced at C5-6. No acute cortical disruption or malalignment. No lytic or blastic lesions. Upper airway is patent. XR/XR cervical spine 3V IMPRESSION: Multilevel moderate to severe cervical spondylosis C2 C7 pronounced at C5-6. Worsened since prior exam. Electronically signed by: Geoffrey Perez MD 04/12/2025 11:02 AM EDT
== END 2025-04-12 09:54 | disposition home or self-care (01) ==
LOC: HO.XRAY 09:53
PROVIDERS: PCP Internal Medicine; Visit Provider Internal Medicine
DX: M54.2 Cervicalgia (principal); E78.00 Pure hypercholesterolemia, unspecified; R73.01 Impaired fasting glucose; R03.0 Elevated blood-pressure reading, without diagnosis of hypertension; K21.9 Gastro-esophageal reflux disease without esophagitis; E55.9 Vitamin D deficiency, unspecified; E53.8 Deficiency of other specified B group vitamins; M77.32 Calcaneal spur, left foot; G47.00 Insomnia, unspecified; F41.9 Anxiety disorder, unspecified; F32.A Depression, unspecified
CPT/HCPCS: 72040; 96127; 99212

== ENCOUNTER → 2025-04-12 10:36 | Outpatient (BNV) | payer MEDICARE, SELFPAY | PROVIDERS: PCP Internal Medicine; Visit Provider Radiology Diagnostic Radiology | DX: M54.2 Cervicalgia (principal) | CPT/HCPCS: 72040 ==

== ENCOUNTER 2025-05-04 08:50 | Outpatient (AMB) | payer MEDICARE, SELFPAY ==
--- OUTSIDE RECORDS SUMMARY | 2024-02-10 03:30 | XMS_ITS ---
Author Organization [facility] Address [address] [place] [address] Care Team Providers Care Transmitter Operator Name Role Phone Rock HANNA, Chris Primary Care Provider Unava ilable Everette Poole Unavailable [phone] REASON FOR VISIT screening,dysphagia,chronic gerd Problems Problem Type SNOMED Code ICD Code Onset Dates Problem Status W/U Status Risk Notes Problem Diverticular disease of colon (777414462) Diverticulosis of large intestine without perforation or abscess without bleeding (K57.30) Active confirmed Problem Chronic gastritis (4372573) Gastritis, chronic (K29.50) Active confirmed Encounters Encounter Location Date Provider Diagnosis [facility] Outpatient [address] [place], [place] [phone] 02/10/2024 Everette Poole Encounter for screen ing [...] KEYONNA MURPHY ADOB: 1955 (69 yo M)Acc No.[id number]:02/10/2024 EGD and COL/MAC Patient: KEYONNA BULL Provider: Sonja Poole MD :1955 A ge:68 Y S ex:Male Date:02/10/2024 Address:[address] [place], [place] [id number] Pcp:Chris Wilkerson MD Subjective: * Chief Complaints: * 1 . Screening,dysphagia,chronic gerd. * Medical History: Objective: * Vitals: Assessment: * Assessment: 1. E ncounter for screening colonoscopy - Z12.11 (Primary) 2 . D iverticulosis of large intestine without perforation or abscess without bleeding - K57.30 3 .?Other hemorrhoids - K64.8 4 . G astroesophageal reflux disease - K21.9 5 . H iatal hernia - K44.9 6 . G astritis, chronic - K29.50 Plan: * Treatment: * Procedure Codes: 4 5378 DIAGNOSTIC COLONOSCOPY, 96133 UPPER GI ENDOSCOPY, BIOPSY * * The named appointment provid er may or may not be the originator of this progress note, and it is not deemed complete until electronically signed by the appointment provider. Sign off status: Pending * Provider: Sonja Poole MD Date: 0 02/10/2024 Generated for Edwin waller/Faraz/eTransmitting on: 0 05/04/2025 10:00 AM EDT
--- OUTSIDE RECORDS SUMMARY | 2024-10-06 06:15 | XMS_ITS ---
Author Organization [facility] Address [address] [place] [address] Care Team Providers Care Financial Management Consultant Name Role Phone Rock HANNA, Chris Primary Care Provider Unava Chely Gomez Unavailable [phone] Encounters Encounter Location Date Provider Diagnosis [facility] [address] [place] [address] 10/06/2024 Chely Lin Plan Of Treatment No Information Progress Notes * Matthew PETERSEN ADOB:1955 (69 yo M)Acc No.[id number]:10/06/2024 Progress Notes Patient: Matthew PARRY Provider: Rush Lin DPM :1955 A ge:68 Y S ex:Male Date:10/06/2024 Address:[address] [place] [phone] Pcp:Chris Wilkerson MD Subjective: * Chief Complaints: [...] 0 10/06/2024 Generated for Printi ng/Fakevg/eTransmitting on: 0 05/04/2025 09:59 AM EDT
--- NOTE | 2025-05-04 08:54 | MHC.OFFVIS ---
Vital Signs 05/04/25 08:56 Height 5 ft 7 in Weight 156 lb BMI 24.4 Intake Visit Reasons: New Pt- left foot pain/ heel spur Intake Note: Matthew is a 69 year old male who presents today as a new patient for an evaluation of his left foot pain and calcaneal spur. He mentions the pain in his left foot hurts more after ambulating. Patient has tried Physical therapy through [facility] but was unable to continue due to finances. He reports having the pain in the left foot for more then 5 years and he is interested in having a cortisone shot due to failing PT. Allergies No Known Allergies (No Known Allergies*) Allergy (Verified 05/04/25 08:58) Medication List - Last Reconciled 05/04/25 by Billy Jacob DPM cholecalciferol (vitamin D3) 25 mcg PO DAILY mecobalamin (vitamin B12) 1,000 mcg PO DAILY miscellaneous medical supply (Blood Pressure Cuff) As directed pantoprazole 40 mg PO DAILY PRN 90 days HPI HPI New Pt- left foot pain/ heel spur: Details: 69-year-old male seen today for initial evaluation of left heel pain. He states that this has been going on and off for approximately 5 years. He has seen [facility] in the past who made Custom orthotics, which he has been using for the past 6 months. He was also referred to physical therapy which he tried for approximately 3 weeks but did not see any relief. He states that he is an avid walker and walks approximately 1 mile a day, and he used to play softball up until this year which he quit due to his heel pain. At present, he complains of intermittent heel pain that radiates to the back of his heel, worst after walking approximately 1 mi. the pain is also present as soreness at the end of the day. He denies any right foot pain. He is not taking any medication for pain currently. [facility] Medical History Insomnia Vitamin B12 deficiency Vitamin D deficiency Impaired fasting glucose Cervical disc disease GERD without esophagitis Pure hypercholesterolemia Surgical History History of esophagogastroduodenoscopy (EGD) History of colonoscopy (~10/09/13) History of surgery History of arthroscopic surgery of elbow History of hemorrhoidectomy Family History Father Suicide Mother Heart disease CVD (cardiovascular disease) Diabetes Emphysema lung Other Mental health problem Social History Household Members: Spouse Housing: House Alcohol intake: current Alcohol intake frequency: does not drink Patient Tobacco Use Status: Never used Tobacco e-Cigarette/Vaping Use: Never Used Second Hand Smoke Exposure: Yes service: No Current occupational status: employed and retired 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 Derm: No open wounds or lacerations, no ecchymosis. Neuro: Protective sensation grossly intact to bilateral lower extremities. MSK: Moderate tenderness on palpation along the plantar medial calcaneal tubercle left heel, mild tenderness on palpation of prominent posterior calcaneal protuberance. Ankle dorsiflexion approximately 0 degrees on knee extension, 3-5 degrees on knee flexion. Office Procedures AMB Flexor Tendon/Plantar POD Tendon Injection Tendon Injection POD1: 28278- Plantar Fascia Injection (Left heel, 1st injection) All charges added?: Procedure code (CPT) selection complete Office Meds triamcinolone acetonide 40 mg/mL suspension for injection Performing Provider: Billy Jacob DPM Performing Location: [facility] Administered by: Billy Jacob DPM on 05/04/25 09:32 Dose Route Admin Location Dispensed Lot Number Expiration Date [facility] Photographer Still 20 mg Tendon Sheath Inj. 1 mL [address]-5 [employer] Total Dispensed Waste 1 mL 50 % dexamethasone sodium phosphate 4 mg/mL injection solution Performing Provider: Billy Jacob DPM Performing Location: [facility] Administered by: Billy Jacob DPM on 05/04/25 09:32 Dose Route Admin Location Dispensed Lot Number Expiration Date [facility] Photographer Still 4 mg subcutaneous 1 mL [id number] [facility] Total Dispensed Waste 1 mL 0 % bupivacaine (PF) 0.5 % (5 mg/mL) injection solution Performing Provider: Billy Jacob DPM Performing Location: [facility] Administered by: Billy Jacob DPM on 05/04/25 09:32 Dose Route Admin Location Dispensed Lot Number Expiration Date [facility] Photographer Still 2 mL subcutaneous 10 mL [id number] [employer] Total Dispensed Waste 10 mL 80 % Results Reviewed Results Reviewed: Podiatry X-ray Read: 11/21/2023 X-ray left calcaneus two views (axial and lateral views) reviewed which shows moderate plantar calcaneal spur, mild posterior calcaneal insertional spur. no fractures, dislocations, or gross abnormalities. Bone density is within normal limits. Normal anatomy. No evidence of swelling, foreign body, or calcifications. Assessment & Plan Assessment & Plan (1) Plantar fasciitis of left foot: Code(s): M72.2 - Plantar fascial fibromatosis Category: Medical Plan: Reviewed etiology of his heel pain which includes as Achilles tightness and foot type. Administered left heel steroid injection which the patient tolerated well. Instructed to perform range of motion and stretching exercises at home. Recommended night splint to be used daily. Recommended stretching exercises prior to prolonged walking or any activity. Patient deferred any oral medication at this time. Follow up in 1 month. Possible repeat injection. (2) Achilles tendinitis of left lower extremity: Code(s): M76.62 - Achilles tendinitis, left leg Category: Medical Plan: Instructed to perform range of motion and stretching exercises at home daily. Patient deferred physical therapy at this time. Plan Cortisone injection advanced her to left heel today. Orders: Orders AMB Flexor Tendon / Plantar Fascia Injection Today M72.2 - Plantar fascial fibromatosis Coding Level of Care Code New Pt Level 3 (67399) Diagnoses Plantar fasciitis of left foot M72.2 Achilles tendinitis of left lower extremity M76.62 CPT Codes Tendon Injection - Tendon Injection POD1: - Plantar Fascia Injection ([id number]) Time Spent (min) 28
[2025-05-04 08:56] VITALS: BMI 24.4
--- OUTSIDE RECORDS SUMMARY | 2025-05-04 10:00 | XMS_ITS | Patient Health Record ---
Author Organization [facility] Address [address] [place] [address] Care Team Providers Care Computer Security Specialist Name Role Phone Rock HANNA, [place] Primary Care Provider UnaEverette Leblanc Unavailable [phone] Allergies No Known Allergies Reason For Referral [...] Status Risk Notes Problem Colon cancer screening (050442650) Colon cancer screening (Z12.11) Active confirmed Problem Pre-procedure evaluation check (247349842) Encounter for other preprocedural examination (Z01.818) Active confirmed Problem Diverticular disease of colon (079840555) Diverticulosis of large intestine without perforation or abscess without bleeding (K57.30) Active confirmed Problem Dysphagia (78888189) Dysphagia (R13.10) Active confirmed Problem Gastroesophageal reflux disease (178535478) Gastroesophageal reflux disease (K21.9) Active confirmed Problem Chronic gastritis (2562601) Gastritis, chronic (K29.50) Active confirmed Problem Gastroesophageal reflux disease (076724087) Chronic GERD (K21.9) Active confirmed Plan Of Treatment Pending Test Test Name Order Date Pathology 02/10/2024 Future Test Test Name Order Date UPPER GI ENDOSCOPY 07/30/2013 COLONOSCOPY 07/30/2013 COLONOSCOPY 11/05/2023 UPPER GI ENDOSCOPY B[place] DILATION OF ESOPH 12/14/2023 Insurance Providers Payer Name Payer Address Payer Phone Subscriber Number Group Number Insured Name Patient Relationship to Insured Coverage Start Date Coverage End Date [facility] [address] Attn Claims [place] [id number] KEYONNA JASSO Self - patient is the insured Medical (General) History Medical History History ICD Code 09/27/2003 colonoscopy--negative except fo r internal hemoorhoids GERD-EGD 09/2013-minimal HH, no esophagit is nor [facility] Denies [place],DM,CVA,Lung disease,renal dise ase Negative screening colonoscopy except fo r a hyperplastic polyp in 09/2013 Surgical History Surgery Date(Month/Year) knee surgery-left right elbow surgery foot surgery-left hemorrhoids with Dr. Duncan
--- OUTSIDE RECORDS SUMMARY | 2025-05-04 10:00 | XMS_ITS | Patient Health Record ---
[facility] Address [address] [place] [address] Care Team Providers Care Nurse Examiner Name Role Phone Rock HANNA Chris Primary Care Provider Chely Salcido Unavailable [phone] Allergies No Known Allergies Reason For Referral No Information Medications Medication SIG (Take, Route, Frequency, Duration) Notes Start Date End Date Status Custom Orthotics as directed 07/14/2024 Active Medrol anup 4mg as directed orally a s directed; Duration: 6 days 07/14/2024 Not-Taking Vitamin B12 1000 MCG 1 tablet Orally Onc e a day Active Pantoprazole Sodium 40 MG 1 tablet Orall y Once a day Active Vitamin D3 Active Physical Therapy . . . 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 Vital Signs Blood pressure diastolic 66 mm Hg 08/17/2024 Height 5ft 9in in 08/17/2024 Blood pressure systolic 126 mm Hg 08/17/2024 Weight 160 lbs 08/17/2024 BMI 23.63 kg/m2 08/17/2024 Encounters Encounter Location Date Provider Diagnosis [address] [address] 07/14/2024 Chely Lin Achilles tendinitis of left lower extremity M76.62 ; Pain of left heel M79.672 ; Exostosis of left posterior calcaneus M77.32 ; Ryan's deformity of left heel M92.62 and Short Achilles tendon (acquired), left ankle M67.[address] [address] 08/17/2024 Chely Lin Achilles tendinitis of left lower extremity M76.62 ; Pain of left heel M79.672 ; Exostosis of left posterior calcaneus M77.32 ; Ryan's deformity of left heel M92.62 and Short Achilles tendon (acquired), left ankle M67.[address] [address] 08/14/2024 Chely Lin [address] [address] 07/14/2024 Chely Lin [address] [address] [facility] [address] [address] [facility]/09/2024 Chely Lin Assessments Encounter Date Diagnosis [...] Insured Coverage Start Date Coverage End Date [facility] Adv [address] [place] [id number] Matthew Collins Self - patient is the insured Medical (General) History Medical History History ICD Code Chicken pox Reflux ( GERD) Surgical History Surgery Date(Month/Year) elbow shoulder surgery foot surgery knee surgery
== END 2025-05-04 09:25 | disposition home or self-care (01) ==
LOC: HO.HPODS 08:51
PROVIDERS: PCP Internal Medicine; Visit Provider Student in an Organized Health Care Education/Training Program
DX: M72.2 Plantar fascial fibromatosis (principal); M76.62 Achilles tendinitis, left leg
CPT/HCPCS: 20550; 99203

== ENCOUNTER → 2025-05-04 08:50 | Outpatient (BNVA) | payer MEDICARE, SELFPAY | PROVIDERS: PCP Internal Medicine; Visit Provider Student in an Organized Health Care Education/Training Program | DX: M72.2 Plantar fascial fibromatosis (principal); M76.62 Achilles tendinitis, left leg | CPT/HCPCS: 20550; 99202; J0665; J1100; J3301 ==

== ENCOUNTER 2025-05-31 08:51 | Outpatient (AMB) | payer MEDICARE, SELFPAY ==
--- OUTSIDE RECORDS SUMMARY | 2024-02-10 03:30 | XMS_ITS ---
Author Organization [facility] Address [address] [place] [address] Care Team Providers Care Plastic Shaper Name Role Phone Rock HANNA, Chris Primary Care Provider Unava ilable Everette Poole Unavailable [phone] REASON FOR VISIT screening,dysphagia,chronic gerd Problems Problem Type SNOMED Code ICD Code Onset Dates Problem Status W/U Status Risk Notes Problem Diverticular disease of colon (697730362) Diverticulosis of large intestine without perforation or abscess without bleeding (K57.30) Active confirmed Problem Chronic gastritis (0312708) Gastritis, chronic (K29.50) Active confirmed Encounters Encounter Location Date Provider Diagnosis [facility] Outpatient [address] [place], [place] [id number] 02/10/2024 Everette Poole Encounter for screen ing [...] KEYONNA MURPHY ADOB: 1955 (69 yo M)Acc No.[id number]:02/10/2024 EGD and COL/MAC Patient: KEYONNA BULL Provider: Sonja Poole MD :1955 A ge:68 Y S ex:Male Date:02/10/2024 Address:[address] [place], [place] [id number] Pcp:Chris Wilkerson MD Subjective: * Chief Complaints: [...] * Procedure Codes: 4 5378 DIAGNOSTIC COLONOSCOPY, 39833 UPPER GI ENDOSCOPY, BIOPSY * * The named appointment provid er may or may not be the originator of this progress note, and it is not deemed complete until electronically signed by the appointment provider. Sign off status: Pending * Provider: Sonja Poole MD Date: 0 02/10/2024 Generated for Edwin waller/Faraz/eTransmitting on: 1 09:46 AM EDT
--- OUTSIDE RECORDS SUMMARY | 2024-10-06 06:15 | XMS_ITS ---
Author Organization [facility] Address [address] [place] [address] Care Team Providers Care Oil Distributor Tender Name Role Phone Rock HANNA, Chris Primary Care Provider Unava Chely Gomez Unavailable [phone] Encounters Encounter Location Date Provider Diagnosis [facility] [address] [place] [address] 10/06/2024 Chely Lin Plan Of Treatment No Information Progress Notes * Matthew PETERSEN ADOB:1955 (69 yo M)Acc No.[id number]:10/06/2024 Progress Notes Patient: Matthew PARRY Provider: Rush Lin DPM :1955 A ge:68 Y S ex:Male Date:10/06/2024 Address:[address] [place] [id number] Pcp:Chris Wilkerson MD Subjective: * Chief Complaints: [...] DPM Date: 0 10/06/2024 Generated for Printi ng/Fakevg/eTransmitting on: 1 09:45 AM EDT
--- NOTE | 2025-05-31 09:02 | A.OFFVIS_ITS ---
Vital Signs 05/31/25 09:31 Height 5 ft 7 in Weight 156 lb BMI 24.4 Intake Visit Reasons: Follow Up eft foot pain/ heel spur Intake Note: Matthew is a 69 year old male who presents today for a follow up on his left heel pain. Pt reports he is using a night splint that he purchased on [employer] every night and finds his pain has improved However he notices that his left heel is very tender to touch. Allergies No Known Allergies (No Known Allergies*) Allergy (Verified 05/31/25 09:31) HPI HPI Follow Up eft foot pain/ heel spur: Details: The patient is a 69-year-old male presenting for 1 month follow up of left heel pain and swelling. He states that the heel injection helped a little, and the night splint is helping as well. However, most of his pain is now associated with tenderness to the back of his heel. The patient reports that physical therapy was previously attempted but did not provide relief. He has been using a topical analgesic as advised, which provides minimal relief. He has not been able to engage in any due to his pain. Medications: - Topical analgesic for muscle pain Social History: - Engages in some physical activity, including attempts at exercise - History of playing softball [facility] Medical History Insomnia Vitamin B12 deficiency Vitamin D deficiency Impaired fasting glucose Cervical disc disease GERD without esophagitis Pure hypercholesterolemia Surgical History History of esophagogastroduodenoscopy (EGD) History of colonoscopy (~10/09/13) History of surgery History of arthroscopic surgery of elbow History of hemorrhoidectomy Family History Father Suicide Mother Heart disease CVD (cardiovascular disease) Diabetes Emphysema lung Other Mental health problem Social History Household Members: Spouse Housing: House Alcohol intake: current Alcohol intake frequency: does not drink Patient Tobacco Use Status: Never used Tobacco e-Cigarette/Vaping Use: Never Used Second Hand Smoke Exposure: Yes service: No Current occupational status: employed and retired 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 Derm: No open wounds or lacerations, no ecchymosis. Neuro: Protective sensation grossly intact to bilateral lower extremities. MSK: Mild tenderness on palpation along the plantar medial calcaneal tubercle left heel, increased moderate tenderness on palpation of distal medial aspect of the posterior calcaneal spur, distal to the Achilles tendon insertion. Ankle dorsiflexion approximately 0 degrees on knee extension, 3-5 degrees on knee flexion. Results Reviewed Results Reviewed: Podiatry X-ray Read: 11/21/2023 X-ray left calcaneus two views (axial and lateral views) reviewed which shows moderate plantar calcaneal spur, mild posterior calcaneal insertional spur. no fractures, dislocations, or gross abnormalities. Bone density is within normal limits. Normal anatomy. No evidence of swelling, foreign body, or calcifications. Assessment & Plan Assessment & Plan (1) Achilles tendinitis of left lower extremity: Code(s): M76.62 - Achilles tendinitis, left leg Category: Medical Plan: * X-rays reviewed * Instructed to perform range of motion and stretching exercises at home daily. * Rx medrol dose pack * Rx lidocaine patch * Applied heel lift to left lower extremity. Instructed to purchase gel lifts x2. * If symptoms persist, may be referred for an MRI next visit, versus repeat injection + CAM boot. (2) Plantar fasciitis of left foot: Code(s): M72.2 - Plantar fascial fibromatosis Category: Medical Plan: * s/p: 1 left heel injection. * Instructed to perform range of motion and stretching exercises at home. * Continue night splint to be used daily. Medications: New lidocaine 5% leave on most painful area for up to 12 hrs 1 patch topical DAILY 15 ea 3RF tendinitis M76.62 - Achilles tendinitis, left leg methylprednisolone Take 6 tablets on day 1, 5 tablets on day 2, 4 tablets on day 3, 3 tablets on day 4, 2 tablets on day 5, and 1 tablet on day 6. 4 mg PO DAILY 21 ea 0RF tendinitis M76.62 - Achilles tendinitis, left leg Coding Level of Care Code Est Pt Level 3 (28137) Diagnoses Achilles tendinitis of left lower extremity M76.62 Plantar fasciitis of left foot M72.2 Time Spent (min) 30
[2025-05-31 09:31] VITALS: BMI 24.4
--- OUTSIDE RECORDS SUMMARY | 2025-05-31 09:45 | XMS_ITS | Patient Health Record ---
Author Organization [facility] Address [address] [place] [address] Care Team Providers Care Sales Enablement Specialist Name Role Phone Rock HANNA, Emily Primary Care Provider UnaEverette Leblanc Unavailable [phone] Allergies No Known Allergies Reason For Referral [...] Status Risk Notes Problem Colon cancer screening (870522771) Colon cancer screening (Z12.11) Active confirmed Problem Pre-procedure evaluation check (099960974) Encounter for other preprocedural examination (Z01.818) Active confirmed Problem Diverticular disease of colon (115997624) Diverticulosis of large intestine without perforation or abscess without bleeding (K57.30) Active confirmed Problem Dysphagia (12254404) Dysphagia (R13.10) Active confirmed Problem Gastroesophageal reflux disease (161981626) Gastroesophageal reflux disease (K21.9) Active confirmed Problem Chronic gastritis (7584139) Gastritis, chronic (K29.50) Active confirmed Problem Gastroesophageal reflux disease (480437276) Chronic GERD (K21.9) Active confirmed Plan Of Treatment Pending Test Test Name Order Date Pathology 02/10/2024 Future Test Test Name Order Date UPPER GI ENDOSCOPY 07/30/2013 COLONOSCOPY 07/30/2013 COLONOSCOPY 11/05/2023 UPPER GI ENDOSCOPY B[place] DILATION OF ESOPH 12/14/2023 Insurance Providers Payer Name Payer Address Payer Phone Subscriber Number Group Number Insured Name Patient Relationship to Insured Coverage Start Date Coverage End Date [facility] [address] Attn Claims [place] [id number] KEYONNA JASSO Self - patient is the insured Medical (General) History Medical History History ICD Code 09/27/2003 colonoscopy--negative except fo r internal hemoorhoids GERD-EGD 09/2013-minimal HH, no esophagit is nor [facility] Denies [place],DM,CVA,Lung disease,renal dise ase Negative screening colonoscopy except fo r a hyperplastic polyp in 09/2013 Surgical History Surgery Date(Month/Year) knee surgery-left right elbow surgery foot surgery-left hemorrhoids with Dr. Duncan
--- OUTSIDE RECORDS SUMMARY | 2025-05-31 09:46 | XMS_ITS | Patient Health Record ---
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 Vital Signs Blood pressure diastolic 66 mm Hg 08/17/2024 Height 5ft 9in in 08/17/2024 Blood pressure systolic 126 mm Hg 08/17/2024 Weight 160 lbs 08/17/2024 BMI 23.63 kg/m2 08/17/2024 Encounters Encounter Location Date Provider Diagnosis [address] [address] 07/14/2024 Chely Lin Achilles tendinitis of left lower extremity M76.62 ; Pain of left heel M79.672 ; Exostosis of left posterior calcaneus M77.32 ; Ryan's deformity of left heel M92.62 and Short Achilles tendon (acquired), left ankle M67.[address] [address] 08/17/2024 Chely Lin Achilles tendinitis of left lower extremity M76.62 ; Pain of left heel M79.672 ; Exostosis of left posterior calcaneus M77.32 ; Ryan's deformity of left heel M92.62 and Short Achilles tendon (acquired), left ankle M67.[address] [address] 08/14/2024 Chely Lin [address] [address] 07/14/2024 Chely Lin [address] [address] [facility] [address] [address] 09/09/2024 Chely Lin Assessments Encounter Date Diagnosis [...] Insured Coverage Start Date Coverage End Date [facility] Adv [address] [place] [id number] Matthew Collins Self - patient is the insured Medical (General) History Medical History History ICD Code Chicken pox Reflux ( GERD) Surgical History Surgery Date(Month/Year) elbow shoulder surgery foot surgery knee surgery
== END 2025-05-31 09:18 | disposition home or self-care (01) ==
LOC: HO.HPODS 08:53
PROVIDERS: PCP Internal Medicine; Visit Provider Student in an Organized Health Care Education/Training Program
DX: M76.62 Achilles tendinitis, left leg (principal); M72.2 Plantar fascial fibromatosis
CPT/HCPCS: 99213

== ENCOUNTER → 2025-05-31 08:51 | Outpatient (BNVA) | payer MEDICARE, SELFPAY | PROVIDERS: PCP Internal Medicine; Visit Provider Student in an Organized Health Care Education/Training Program | DX: M76.62 Achilles tendinitis, left leg (principal); M72.2 Plantar fascial fibromatosis | CPT/HCPCS: 99212 ==

== ENCOUNTER 2025-08-09 07:43 | Outpatient (REF) | payer MEDICARE, SELFPAY ==
--- OUTSIDE RECORDS SUMMARY | 2024-02-10 02:30 | XMS_ITS ---
Author Organization [facility] Address [address] [place] [address] Care Team Providers Care Wrapper Hand Name Role Phone Rock HANNA, Chris Primary Care Provider Unava ilable Everette Poole Unavailable [phone] REASON FOR VISIT screening,dysphagia,chronic gerd Problems Problem Type SNOMED Code ICD Code Onset Dates Problem Status W/U Status Risk Notes Problem Diverticular disease of colon (692031453) Diverticulosis of large intestine without perforation or abscess without bleeding (K57.30) Active confirmed Problem Chronic gastritis (8362729) Gastritis, chronic (K29.50) Active confirmed Encounters Encounter Location Date Provider Diagnosis [facility] Outpatient [address] [place], [place] [id number] 02/10/2024 Everette Poole Encounter for screen ing colonoscopy Z12.11 ; Diverticulosis of large intestine without perforation or abscess without bleeding K57.30 ; Other hemorrhoids K64.8 ; Gastroesophageal reflux disease K21.9 ; Hiatal hernia K44.9 and Gastritis, chronic K29.50 Assessments Encounter Date Diagnosis (ICD Code) Assessment Notes Treatment Notes Treatment Clinical Notes Section Notes 02/10/2024 Encounter for screening colonoscopy (ICD-10 - Z12.11) 02/10/2024 Diverticulosis of large intestine without perforation or abscess without bleeding (ICD-10 - K57.30) 02/10/2024 Other hemorrhoids (ICD-10 - K64.8) 02/10/2024 Gastroesophageal reflux disease (ICD-10 - K21.9) 02/10/2024 Hiatal hernia (ICD-10 - K44.9) 02/10/2024 Gastritis, chronic (ICD-10 - K29.50) Plan Of Treatment No Information Progress Notes * KEYONNA MURPHY ADOB: 1955 (69 yo M)Acc No.[id number]:02/10/2024 EGD and COL/MAC Patient: KEYONNA BULL Provider: Sonja Poole MD :1955 A ge:68 Y S ex:Male Date:02/10/2024 Address:[address] [place], [place] [id number] Pcp:Chris Wilkerson MD Subjective: * Chief Complaints: * S creening,dysphagia,chronic gerd Assessment: * Assessment: 1. E ncounter for screening colonoscopy - Z12.11 (Primary) 2 . D iverticulosis of large intestine without perforation or abscess without bleeding - K57.30 3 .?Other hemorrhoids - K64.8 4 . G astroesophageal reflux disease - K21.9 5 . H iatal hernia - K44.9 6 . G astritis, chronic - K29.50 Plan: * Procedure Codes: 4 5378 DIAGNOSTIC [id number] UPPER GI ENDOSCOPY, BIOPSY Billing Information: * Procedure Codes: 03394 DIAGNOSTIC COLONOSCOPY. 19184 UPPER GI ENDOSCOPY, BIOPSY. * The named appointment provid er may or may not be the originator of this progress note, and it is not deemed complete until electronically signed by the appointment provider. Sign off status: Pending * Provider: Sonja Poole MD Date: 0 02/10/2024 Generated for Edwin waller/Faraz/eTransmitting on: 1 10/10/2024 07:45 AM EST
--- OUTSIDE RECORDS SUMMARY | 2024-10-06 05:15 | XMS_ITS ---
Author Organization [facility] Address [address] [place] [address] Care Team Providers Care Modular Home Crew Member Name Role Phone Rock HANNA, Chris Primary Care Provider Unava Chely Gomez Unavailable [phone] Encounters Encounter Location Date Provider Diagnosis [facility] [address] [place] [address] 10/06/2024 Chely Lin Plan Of Treatment No Information Progress Notes * Matthew PETERSEN ADOB:1955 (69 yo M)Acc No.[id number]:10/06/2024 Progress Notes Patient: Matthew PARRY Provider: Rush Lin DPM :1955 A ge:68 Y S ex:Male Date:10/06/2024 Address:[address] [place] [phone] Pcp:Chris Wilkerson MD Subjective: * Chief Complaints: [...] 10/06/2024 Generated for Printi ng/Faedin/eTransmitting on: 1 10/10/2024 07:45 AM EST
--- OUTSIDE RECORDS SUMMARY | 2025-08-09 07:45 | XMS_ITS | Patient Health Record ---
Author Organization [facility] Address [address] [place] [address] Care Team Providers Care Aerobics Teacher Name Role Phone Rock HANNA, [place] Primary Care Provider UnaEverette Leblanc Unavailable [phone] Allergies No Known Allergies Reason For Referral No Information Medications Medication SIG (Take, Route, Frequency, Duration) Notes Start Date End Date Status Omeprazole Active MiraLax (colon prep) 17 GM/SCOOP Powder 1 238Gm bottle mixed with Gatorade or Crystal Light Orally begin at 5:00 p.m. the day before the procedure; Duration: 1 day 11/05/2023 Activ e Vitamin B12 1000mg A ctive Dulcolax (colon prep) 5 MG Tablet Delayed Release take at 3:00 p.m and 7:00p.m. 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 Section Notes: Nonsmoker; few beers on e weekends Nonsmoker; few beers on e weekends Problems Problem Type SNOMED Code ICD Code Onset Dates Problem Status W/U Status Risk Notes Problem Colon cancer screening (840842205) Colon cancer screening (Z12.11) Active confirmed Problem Pre-procedure evaluation check (620273966) Encounter for other preprocedural examination (Z01.818) Active confirmed Problem Diverticular disease of colon (743720055) Diverticulosis of large intestine without perforation or abscess without bleeding (K57.30) Active confirmed Problem Dysphagia (87541302) Dysphagia (R13.10) Active confirmed Problem Gastroesophageal reflux disease (463263833) Gastroesophageal reflux disease (K21.9) Active confirmed Problem Chronic gastritis (7079718) Gastritis, chronic (K29.50) Active confirmed Problem Gastroesophageal reflux disease (disorder) (713046381) Chronic GERD (K21.9) Active confirmed Plan Of Treatment Pending Test Test Name Order Date Pathology 02/10/2024 Future Test Test Name Order Date UPPER GI ENDOSCOPY 07/30/2013 COLONOSCOPY 07/30/2013 COLONOSCOPY 11/05/2023 UPPER GI ENDOSCOPY BALL[place] DILATION OF ESOPH 12/14/2023 Insurance Providers Payer Name Payer Address Payer Phone Subscriber Number Group Number Insured Name Patient Relationship to Insured Coverage Start Date Coverage End Date [facility] [address] Attn Claims [place] [id number] KEYONNA JASSO Self - patient is the insured Medical (General) History Medical History History ICD Code 09/27/2003 colonoscopy--negative except fo r internal hemoorhoids GERD-EGD 09/2013-minimal HH, no esophagit is nor [facility] Denies [place],DM,CVA,Lung disease,renal dise ase Negative screening colonoscopy except fo r a hyperplastic polyp in 09/2013 Surgical History Surgery Date(Month/Year) knee surgery-left right elbow surgery foot surgery-left hemorrhoids with Dr. Duncan
--- OUTSIDE RECORDS SUMMARY | 2025-08-09 07:46 | XMS_ITS | Patient Health Record ---
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 Vital Signs Blood pressure diastolic 66 mm Hg 08/17/2024 Height 5ft 9in in 08/17/2024 Blood pressure systolic 126 mm Hg 08/17/2024 Weight 160 lbs 08/17/2024 BMI 23.63 kg/m2 08/17/2024 Encounters Encounter [facility] Date [facility] [place] [address] 08/17/2024 Chely Lin Achilles tendinitis of left lower extremity M76.62 ; Pain of left heel M79.672 ; Exostosis of left posterior calcaneus M77.32 ; Ryan's deformity of left heel M92.62 and Short Achilles tendon (acquired), left ankle M67.02 [facility] [place] [address] 08/14/2024 [facility] [address] [place] [address] 09/09/2024 Chely Lin Assessments Encounter Date Diagnosis [...] Insured Coverage Start Date Coverage End Date [facility] Adv [address] [place] [id number] Matthew Collins Self - patient is the insured Medical (General) History Medical History History ICD Code Chicken pox Reflux ( GERD) Surgical History Surgery Date(Month/Year) elbow shoulder surgery foot surgery knee surgery
[2025-08-09 07:59] LABS: MANUAL DIFF FLAG NO
[2025-08-09 08:23] LABS: Hematocrit 43.9 % (42.0-52.0); Hemoglobin 14.2 g/dl (14.0-18.0); Imm Gran Abs Auto 0.01 X10*3/uL (0.00-0.03); Imm Gran Pct Auto 0.2 % (0.0-0.4); Lymphocytes Absolute Auto 1.7 X10*3/uL (1.2-4.9); Mean Corpuscular HGB Conc 32.3 g/dl (31.0-36.0); Mean Corpuscular Hemoglobin 29.1 pg (27.0-33.0); Mean Corpuscular Volume 90.0 fL (80.0-98.0); NRBC Abs Auto 0.000 X10*3/uL (0.0-0.012); NRBC Pct Auto 0.0 /100WBC (0.0-0.2); Platelet Count 186 X10*3/uL (160-400); Red Blood Count 4.88 X10*6/uL (4.60-5.80); White Blood Count 4.3 X10*3/uL (4.8-10.8)
[2025-08-09 09:14] LABS: Alanine Aminotransferase 14 U/L (0-40); Albumin Level 4.5 g/dL (3.5-5.0); Alkaline Phosphatase 81 U/L (39-117); Anion Gap 12 (12-20); Aspartate Amino Transferase 23 U/L (5-37); Blood Urea Nitrogen 24 mg/dL (9-16); Calcium 9.4 mg/dL (8.4-10.2); Carbon Dioxide 26 mmol/L (22-29); Chloride 109 mmol/L (96-108); Cholesterol 202 mg/dL (<200); Estimated Glomerular Filt Rate > 60; HDL Cholesterol 48 mg/dL (>40); Potassium 4.7 mmol/L (3.3-5.1); Sodium 142 mmol/L (135-145); Total Protein 7.1 g/dL (6.5-8.0); Triglycerides 99 mg/dL (<150)
== END 2025-08-09 07:44 | disposition home or self-care (01) ==
LOC: HO.LAB 07:43
PROVIDERS: PCP Internal Medicine; Visit Provider Internal Medicine
DX: R73.01 Impaired fasting glucose (principal); D64.9 Anemia, unspecified; E78.00 Pure hypercholesterolemia, unspecified
CPT/HCPCS: 36415; 80053; 80061; 83036; 85025

== ENCOUNTER 2025-08-16 10:49 | Outpatient (AMB) | payer MEDICARE, SELFPAY ==
--- OUTSIDE RECORDS SUMMARY | 2024-10-06 05:15 | XMS_ITS ---
[facility] Address [address] [place] [address] Care Team Providers Care Spinning Doffer Name Role Phone Rock HANNA, Chris Primary Care Provider Unava Chely Gomez Unavailable [phone] Encounters Encounter Location Date Provider Diagnosis [facility] [address] [place] [address] 10/06/2024 Chely Lin Plan Of Treatment No Information Progress Notes * Matthew PETERSEN ADOB:1955 (69 yo M)Acc No.[id number]:10/06/2024 Progress Notes Patient: Matthew PARRY Provider: Rush Lin DPM :1955 A ge:68 Y S ex:Male Date:10/06/2024 Address:[address] [place] [id number] Pcp:Chris Wilkerson MD Subjective: * Chief Complaints: * * Medical History: Objective: * Vitals: Assessment: Plan: * Treatment: * Images: * The named appointment provid er may or may not be the originator of this progress note, and it is not deemed complete until electronically signed by the appointment provider. Sign off status: Pending * Provider: Rush Lin DPM Date: 0 10/06/2024 Generated for Printi ng/Faedin/eTransmitting on: 1 10/17/2024 01:32 PM EST
[2025-08-16 10:55] VITALS: BP 130/86; PULSE 79; O2SAT 98; BMI 24.4
--- NOTE | 2025-08-16 10:55 | MHC.PC.OV ---
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 Required: No Accompanied by: Self / Same As Patient Allergies No Known Allergies (No Known Allergies*) Allergy (Verified 08/16/25 11:38) Medication List - Last Reconciled 08/16/25 by Chris Wilkerson MD cholecalciferol (vitamin D3) 25 mcg PO DAILY lidocaine 5% 1 patch topical DAILY mecobalamin (vitamin B12) 1,000 mcg PO DAILY methylprednisolone 4 mg PO DAILY miscellaneous medical supply (Blood Pressure Cuff) As directed pantoprazole 40 mg PO DAILY PRN 90 days Tobacco use date assessed: 08/16/25 Fall risk assessment: No Falls in past year Last assessed Fall Risk: 08/16/25 Dental Screening Dental Screen Date: 08/16/25 Did you have a dental visit in the last 12 months?: Yes Did you have a dental problem in the last 6 months where you did not have access to dental care?: No Was dental information given to patient?: Patient has dentist HPI 5 mo follow up HPI Details Patient comes in today for his follow up visit States that he feels okay He denies any headaches or dizziness Denies any chest pains, no SOB No nausea/vomiting, no abdominal pain No change in bowel habits noted States that his neck still bothers him on and off (pain) but his symptoms have improved with physical therapy several months ago He had his follow up labs done last week - to discuss his results [facility] Medical History Insomnia Vitamin B12 deficiency Vitamin D deficiency Impaired fasting glucose Cervical disc disease GERD without esophagitis Pure hypercholesterolemia Surgical History History of esophagogastroduodenoscopy (EGD) History of colonoscopy (~10/09/13) History of surgery History of arthroscopic surgery of elbow History of hemorrhoidectomy Family History Father Suicide Mother Heart disease CVD (cardiovascular disease) Diabetes Emphysema lung Other Mental health problem Social History Household Members: Spouse Housing: House Alcohol intake: current Alcohol intake frequency: does not drink Patient Tobacco Use Status: Never used Tobacco e-Cigarette/Vaping Use: Never Used Second Hand Smoke Exposure: Yes service: No Current occupational status: employed and retired 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 1. Little interest or pleasure in doing things: not at all 2. Feeling down, depressed, or hopeless: several days 3. Trouble falling or staying asleep, or sleeping too much: several days 4. Feeling tired or having little energy: not at all 5. Poor appetite or overeating: not at all 6. Feeling bad about yourself - or that you are a failure or have let yourself or your family down: not at all 7. Trouble concentrating on things, such as reading the newspaper or watching television: not at all 8. Moving or speaking so slowly that other people could have noticed. Or the opposite - being so fidgety or restless that you have been moving around a lot more than usual: not at all 9. Thoughts that you would be better off or of hurting yourself in some way: not at all Total score: 2 Depression Screening Interpretation: Negative Depression Screening Done: Yes 61708 - PHQ-9 Billing: Yes Source: Developed by Drs. Everette Alejandre, Donna Lucas, Markell Waldron and colleagues, with an educational thanh from [employer]. Thrive Questionnaire Date Thrive assessed: 08/16/25 I am a: Patient What is your living situation today?: I have a steady place to live Within the past 12 months, did the food you bought not last and you didn't have the money to get more?: Never true Within the past 12 months, did you worry whether your food would run out before you got money to buy more?: Never true Do you have trouble paying for medicines?: No Do you have trouble getting transportation to medical appointments?: No Do you have trouble paying your heating and electricity bill?: No Do you have trouble taking care of your child, family member or friend?: No Do you have trouble with day-to-day activities such as bathing, preparing meals, shopping, managing finances, etc.?: No Are you currently unemployed and looking for a job?: I choose not to answer this question Are you interested in more education?: No Please select the resources that you would like help with: None Currently or been in a relationship where the following occur: No concerns reported THRIVE Score: 0 AUDIT C Alcohol Use Questionnaire (AUDIT-C) 1. How often do you have a drink containing alcohol?: 2-4 times a month 2. How many drinks containing alcohol do you have on a typical day when you are drinking?: 3 or 4 3. How often do you have six or more drinks on one occasion?: Less than monthly Total Score: 4 Score Reviewed/Action Taken: Yes ELIA-7 AMB Questionnaire ELIA-7 Date ELIA - 7 assessed: 08/16/25 Feeling nervous, anxious, or on edge: 1 = Several days Not being able to stop or control worryin = Several days Worrying too much about different things: 1 = Several days Trouble relaxin = Several days Being so restless that it is hard to sit still: 0 = Not at all Becoming easily annoyed or irritable: 0 = Not at all Feeling afraid as if something awful might happen: 0 = Not at all Total ELIA-7 score (0-4 normal; 5-9 mild; 10-14 moderate; 15-21 severe): 4 Source: Developed by Drs. Everette Alejandre, Donna Lucas, Markell Waldron and colleagues, with an educational thanh from [employer]. Review of Systems Const Denies chills, Denies fatigue, Denies fever(s) and Denies headache(s) ENT Denies dysphagia, Denies dizziness, Denies otalgia, Denies headache(s), Reports neck pain (improved with PT), Denies odynophagia and Denies sore throat Card Denies chest pain, Denies rapid heart rate, Denies irregular heart rhythm, Denies palpitations and Denies dyspnea Resp Denies chest congestion, Denies cough and Denies dyspnea GI Denies abdominal pain, Denies constipation, Denies dysphagia, Denies heartburn, Denies diarrhea, Denies nausea, Denies odynophagia and Denies vomiting Denies difficulty urinating, Denies dysuria and Denies urinary frequency Musc Denies back pain, Reports arthralgias (in the left heel - see HPI) and Reports neck pain (improved with PT) Skin/Breast Denies rash Neuro Denies dizziness, Denies headache(s) and Denies paresthesias Psych Reports anxiety (better controlled lately) Endo Denies fatigue and Denies palpitations Physical exam (Primary Care) Vital Signs: Last Vital Signs Pulse 79 08/16/25 10:55 BP 130/86 08/16/25 10:55 Pulse Ox 98 08/16/25 10:55 Oxygen Delivery Method Room Air 08/16/25 10:55 BMI result Body Mass Index 24.4 Tobacco/Smoking Status: Tobacco use Status Tobacco use date assessed 08/16/25 08/16/25 10:59 Patient Tobacco Use Status Never used Tobacco 08/16/25 10:59 e-Cigarette/Vaping Use Never Used 08/16/25 10:59 PHQ-9: PHQ-9 Score PHQ-9: Total score 2 08/17/25 05:10 Depression Screening Interpretation: Negative Thrive Assessment: Date of Thrive Assessment Date Thrive assessed 08/16/25 08/16/25 10:59 Currently or been in a relationship where the following occur: No concerns reported Const General: no acute distress and alert HENMT Ears: TM's normal bilaterally and EAC's normal Throat: Yes posterior oropharynx normal and Yes tonsils normal (no TP congestion) Neck Neck: No lymphadenopathy and Yes tender Thyroid: Thyroid normal Resp Auscultation: clear to auscultation bilaterally, no rales and no wheezes Cardio Rate: regular rate Rhythm: regular rhythm Heart sounds: no murmurs GI Palpation (GI): Soft to palpation and nontender Auscultation: normal bowel sounds General: Yes no CVA tenderness Back/Spine/Pelvis Back: no CVA tenderness Cervical Spine: cervical muscular tenderness (bilaterally), pain with cervical ROM and Cervical spine tenderness Thoracic/Lumbar Spine: No lumbar spinal tenderness Skin Rashes: no rashes Extrem General: Yes no clubbing, cyanosis or edema Left lower extremity: foot Details: tenderness Location: of the calcaneus Details: point tenderness Results Reviewed Results Reviewed: Laboratory Tests 08/09/25 07:57 WBC 4.3 L Hgb 14.2 Hct 43.9 Plt Count 186 Sodium 142 Potassium 4.7 Creatinine 1.09 Estimated GFR > 60 Fasting Glucose 110 H Hemoglobin A1c % 5.6 Calcium 9.4 AST 23 ALT 14 Triglycerides 99 Cholesterol 202 H LDL Cholesterol, Calc 135 H HDL Cholesterol 48 Coding Level of Care Code Est Pt Level 4 (09338) Diagnoses Pure hypercholesterolemia E78.00 Impaired fasting glucose R73.01 Elevated blood-pressure reading without diagnosis of hypertension R03.0 GERD without esophagitis K21.9 Vitamin D deficiency E55.9 Vitamin B12 deficiency E53.8 Cervical disc disease M50.90 Calcaneal spur, left foot M77.32 Insomnia, unspecified type G47.00 Insomnia type: unspecified Anxiety F41.9 Depression, unspecified depression type F32.A Depression Type: unspecified Additional Codes PHQ-9 - 32495 - PHQ-9 Billing: Yes ([id number]) Assessment & Plan Assessment & Plan (1) Pure hypercholesterolemia: Code(s): E78.00 - Pure hypercholesterolemia, unspecified Category: Medical Plan: Results of his labs done last week reviewed and discussed with patient - he is advised that his cholesterol levels have again increased slightly from previous and his LDL cholesterol is now elevated at 135 mg/dl Reinforced low cholesterol diet Patient still prefers not to take any Rx for his cholesterol and will keep working on diet and lifestyle changes to try to improve his cholesterol levels Will recheck his labs and fasting lipids in 4 months for follow up (2) Impaired fasting glucose: Code(s): R73.01 - Impaired fasting glucose Category: Medical Plan: His FBS was still slightly elevated at 110 mg/dl on his recent labs; his HgbA1c was normal at 5.4% on his recent labs done last week HgbA1c has been normal at 5.3%, 5.4% and 5.5% when checked in the past Reinforced low calorie/low carb diet;exercise as tolerated Will continue to monitor his blood sugar and will recheck his HgbA1c in 4 months for follow up (3) Elevated blood-pressure reading without diagnosis of hypertension: Code(s): R03.0 - Elevated blood-pressure reading, without diagnosis of hypertension Category: Medical Plan: Corrected/ resolved His blood pressure today appears well-controlled at 118/80 Reinforced low sodium diet He is reminded to continue monitoring his BP regularly - goal is systolic BP of 120 mm or less (4) GERD without esophagitis: Code(s): K21.9 - Gastro-esophageal reflux disease without esophagitis Category: Medical Plan: Dietary restrictions reinforced Continue Pantoprazole 40 mg QD He had EGD done again with his colonoscopy last year, which revealed (+) findings of proximal gastritis, small hiatal hernia and gastroesophageal reflux Biopsies done came back negative for dysplasia (5) Vitamin D deficiency: Code(s): E55.9 - Vitamin D deficiency, unspecified Category: Medical Plan: Continue Vitamin D3 1000 units QD (6) Vitamin B12 deficiency: Code(s): E53.8 - Deficiency of other specified B group vitamins Category: Medical Plan: Continue Vitamin B12 1000 mcg QD (7) Cervical disc disease: Code(s): M50.90 - Cervical disc disorder, unspecified, unspecified cervical region Category: Medical Plan: Cervical spine x-rays done in 2020 revealed (+) moderate degenerative changes throughout the cervical spine, with mild progression of changes from previous He is again requesting for a referral to PT for increasing neck pains lately - referral to PT placed Updated cervical spine x-rays done back in March 2025 revealed (+) multilevel moderate to severe cervical spondylosis C2 C7 pronounced at C5-6. Findings have worsened since prior exam. (8) Calcaneal spur, left foot: Code(s): M77.32 - Calcaneal spur, left foot Category: Medical Plan: X-rays of the left heel done in October 2023 revealed (+) large calcaneal spur He was referred to and seen by [facility] - was reportedly provided some heel inserts and sent for physical therapy but he stopped going as he could not afford the co-pay that he has to put up every time he goes for PT He is presently still c/o increased left heel pain, which he states sometimes significantly limits his mobility and activity Follow up with podiatry as scheduled (9) Insomnia: Code(s): G47.00 - Insomnia, unspecified Category: Medical Qualifiers: Insomnia type: unspecified Qualified Code(s): G47.00 - Insomnia, unspecified Plan: Sleep hygiene reinforced He was started on a trial of Trazodone 50 mg Q HS PRN previously but patient states that he has been sleeping well lately, especially since he retired last year and prefers not to take any Rx for sleep if he can avoid it (10) Anxiety: Code(s): F41.9 - Anxiety disorder, unspecified Category: Medical Plan: Patient declined offer for Rx to help with his anxiety States that he prefers to try working out his issues first before taking any Rx Advised him that he can call at any time if he feels that his anxiety is getting worse and he needs help (11) Depression: Code(s): F32.A - Depression, unspecified Category: Medical Qualifiers: Depression Type: unspecified Qualified Code(s): F32.A - Depression, unspecified Plan: He was previously referred for counseling / therapy and states that he went a few times and eventually stopped Feels that he is doing better and is in a much better place now mentally than he was last year Plan To return in 4 months for his next annual physical examination Orders: Orders Complete Blood Count Auto Diff 4 Months D64.9 - Anemia, unspecified, Z00.00 - Encounter for general adult medical examination without abnormal findings Lipid Panel 4 Months E78.00 - Pure hypercholesterolemia, unspecified, Z00.00 - Encounter for general adult medical examination without abnormal findings TSH reflex Free T4 4 Months E78.00 - Pure hypercholesterolemia, unspecified, Z00.00 - Encounter for general adult medical examination without abnormal findings UA CC w/rflx Micro + Cult 4 Months R30.0 - Dysuria, Z00.00 - Encounter for general adult medical examination without abnormal findings Vitamin D 25-OH Total 4 Months E55.9 - Vitamin D deficiency, unspecified, Z00.00 - Encounter for general adult medical examination without abnormal findings Prostate Specific Antigen 4 Months N40.0 - Benign prostatic hyperplasia without lower urinary tract symptoms, Z00.00 - Encounter for general adult medical examination without abnormal findings Comprehensive [place]. Panel Fast 4 Months E78.00 - Pure hypercholesterolemia, unspecified, Z00.00 - Encounter for general adult medical examination without abnormal findings
--- OUTSIDE RECORDS SUMMARY | 2025-08-16 13:32 | XMS_ITS | Patient Health Record ---
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 Section Notes: Nonsmoker; few beers on e weekends Nonsmoker; few beers on e weekends Problems Problem Type SNOMED Code ICD Code Onset Dates Problem Status W/U Status Risk Notes Problem Colon cancer screening (362797925) Colon cancer screening (Z12.11) Active confirmed Problem Pre-procedure evaluation check (126015840) Encounter for other preprocedural examination (Z01.818) Active confirmed Problem Diverticular disease of colon (491783733) Diverticulosis of large intestine without perforation or abscess without bleeding (K57.30) Active confirmed Problem Dysphagia (96909548) Dysphagia (R13.10) Active confirmed Problem Gastroesophageal reflux disease (988108582) Gastroesophageal reflux disease (K21.9) Active confirmed Problem Chronic gastritis (0667561) Gastritis, chronic (K29.50) Active confirmed Problem Gastroesophageal reflux disease (disorder) (698817835) Chronic GERD (K21.9) Active confirmed Plan Of Treatment Pending Test Test Name Order Date Pathology 02/10/2024 Future Test Test Name Order Date UPPER GI ENDOSCOPY 07/30/2013 COLONOSCOPY 07/30/2013 COLONOSCOPY 11/05/2023 UPPER GI ENDOSCOPY [place] DILATION OF ESOPH 12/14/2023 Insurance Providers Payer Name Payer Address Payer Phone Subscriber Number Group Number Insured Name Patient Relationship to Insured Coverage Start Date Coverage End Date [facility] [address] Attn Claims [place] [id number] KEYONNA JASSO Self - patient is the insured Medical (General) History Medical History History ICD Code 09/27/2003 colonoscopy--negative except fo r internal hemoorhoids GERD-EGD 09/2013-minimal HH, no esophagit is nor [facility] Denies [place],DM,CVA,Lung disease,renal dise ase Negative screening colonoscopy except fo r a hyperplastic polyp in 09/2013 Surgical History Surgery Date(Month/Year) knee surgery-left right elbow surgery foot surgery-left hemorrhoids with Dr. Duncan
== END 2025-08-16 11:45 | disposition home or self-care (01) ==
LOC: HO.HMCH 10:50
PROVIDERS: PCP Internal Medicine; Visit Provider Internal Medicine
DX: E78.00 Pure hypercholesterolemia, unspecified (principal); R73.01 Impaired fasting glucose; R03.0 Elevated blood-pressure reading, without diagnosis of hypertension; K21.9 Gastro-esophageal reflux disease without esophagitis; E55.9 Vitamin D deficiency, unspecified; E53.8 Deficiency of other specified B group vitamins; M50.90 Cervical disc disorder, unspecified, unspecified cervical region; M77.32 Calcaneal spur, left foot; G47.00 Insomnia, unspecified; F41.9 Anxiety disorder, unspecified; F32.A Depression, unspecified

== ENCOUNTER → 2025-08-16 10:49 | Outpatient (BNVA) | payer MEDICARE, SELFPAY | PROVIDERS: PCP Internal Medicine; Visit Provider Internal Medicine | DX: R73.01 Impaired fasting glucose (principal); E78.00 Pure hypercholesterolemia, unspecified; M50.90 Cervical disc disorder, unspecified, unspecified cervical region; R03.0 Elevated blood-pressure reading, without diagnosis of hypertension; K21.9 Gastro-esophageal reflux disease without esophagitis; M77.32 Calcaneal spur, left foot; G47.00 Insomnia, unspecified; F41.9 Anxiety disorder, unspecified; F32.A Depression, unspecified; E55.9 Vitamin D deficiency, unspecified; D64.9 Anemia, unspecified; E53.8 Deficiency of other specified B group vitamins; Z79.899 Other long term (current) drug therapy; Z13.31 Encounter for screening for depression; Z13.39 Encounter for screening examination for other mental health and behavioral disorders | CPT/HCPCS: 96127; 99212 ==